=== PATIENT | female | born 1995 | race Caucasian/White ===

== ENCOUNTER 2022-01-23 17:11 | Emergency (ER) | payer OTHER ==
--- OUTSIDE RECORDS SUMMARY | 2022-01-23 17:16 | XMS REPORT | Continuity of Care Document ---
:1995 Author Organization [facility] t Address [facility] [place] [address] Care Team Providers Name Role Phone CTR, ADMIN MED Primary Care Physician Unavailable Attending Clinician Unavailable Singer GRIER Attending Clinician Logan KIMBLE Attending Clinician LOGAN Attending Clinician Unavailable Dedra Benitez Attending Clinician Doctor Unassigned, Name Attending Clinician Unavailable Kyler BIRD Attending Clinician KYLER Attending Clinician Unavailable ALO Attending Clinician Unavailable Ariel BROOKS Attending Clinician Unavailable Davy Feng APN Attending Clinician LOGAN Admitting Clinician Unavailable Ariel BROOKS Admitting Clinician Unavailable Payers Payer Name Policy Type Policy Number Effective Date Expiration Date Anisha santiago [facility] [id number] 2019 00:00:00 Advance Directives Directive Decision Effective Termination Comments Source Date Date Healthcare Agents on N/A Univ ersity FileNameRelationshipHealthcare [facility] Agent Medical RelationshipCommunicationAlison Branch ClaonSpousePrimary healthcare [phone] (Mobile) Problems Condition Condition Condition Status Onset Resolution Last Treating Co mments Source Name Details Category Date Date Treatment Clinician Date No known No known Disease Unive rs active active ity of problems problems [facility] Allergies, Adverse Reactions, Alerts Allergy Allergy Status Severity Reaction(s) Onset Inactive Treating Comm ents Source Name Type Date Date Clinician NO KNOWN Drug Active Univers ALLERGIE Class ity of S [facility] Social History Social Habit Start Date Stop Date Quantity Comments Source Exposure to Not sure [facility] SARS-CoV-2 (event) Medica l [place] Sex Assigned At [address] [facility] 00:00:00 00:00:00 Medical Branch Smoking Status Start Date Stop Date Source Unknown if ever smoked [facility] Medications Ordered Filled Start Stop Current Ordering Indication Dosage Frequency Signature Comments Components Source Medication Medication Date Date Medication? Clinician (SIG) Name Name chlorphenir 2020-10 Yes [id number] 4mg Take 1 Univers amine 4 mg 2-29 tablet by ity of tablet 00:00: mouth [place] 00 every 6 Medical (six) Branch hours as needed for Allergies or Runny nose. calcium/mag 2020-10 Yes [id number] 1{each} Take 1 Univers nesium/zinc 2-29 Each by ity o f (CALCIUM-MA 00:00: mouth [place] GNESUIUM-ZI 00 daily. Medica l NE) Branch 333-133-5 mg Tab benzonatate 2020-10 Yes [id number] 100mg Take 1 Univers 100 mg 2-29 capsule by ity of capsule 00:00: mouth 3 [place] 00 (three) Medical times Branch daily as needed for Cough. vitamin 2020-10- Yes [id number] 1{tbl} Take 1 Univers D3-folic 2-29 - tablet by ity o f acid 125 00:00: 05:59 mouth [place] mcg (5,000 00 :00 daily for Medi megan unit)-1 mg 30 days. Branc h Tab maalox:diph 2020-10- No 15mL 15 mL, Uni vers enhydrAMINE 0-16 10-16 Oral, ity of :lidocaine 18:00: 17:10 ONCE, 1 [place] as 2 % viscous 00 :00 dose, On Medi megan 1:1:1 Sat Branch (FIRST-MOUT 08/13/21 [facility]) at 1300, oral Routine suspension 15 mL acetaminoph 2020-10- No 1000mg 1,000 mg, Univers en 0-16 10-16 Oral, ity of (TYLENOL) 18:00: 17:10 ONCE, 1 [place] tablet [place] :[place] dose, On Medical 1,000 mg Sat Branch 08/13/21 at 1300, SEGUNDO activated 2020-10- No 50g 50 g, Univer s charcoal-so 008-13 Oral, ity of rbitoL 13:15: 12:42 ONCE, 1 [place] (ACTIDOSE/S 00 :00 dose, On Medi megan ORBITAL) 25 Sat Branch gram/120 mL 08/13/21 suspension at 0815, 50 g SEGUNDO ketorolac 2020- No 30mg 30 mg, Unive rs (TORADOL) 06-01 Slow IV ity of injection 02:30: 01:45 Push, [place] 30 mg 00 :00 ONCE, 1 Medical dose, Tue Branch 05/31/21 at 2130, SEGUNDO
Fa culty member approving Restricted medication : Romina SOFIA diphenhydrA 2020- No 25mg 25 mg, Uni vers MINE 06-01 Slow IV ity of (BENADRYL) 02:30: 01:46 Push, [place] injection 00 :00 ONCE, 1 Medical 25 mg dose, Tue Branch 05/31/21 at 2130, STAT metoclopram 2020- No 10mg 10 mg, Uni vers maximus HCl 06-01 Slow IV ity of (REGLAN) 02:30: 01:44 Push, [place] injection 00 :00 ONCE, 1 Medical 10 mg dose, Tue Branch 05/31/21 at 2130, SEGUNDO NaCl 0.9% 2020- No 1000mL at 999 Uni vers (NS) bolus 06-01 mL/hr, ity of infusion 02:30: 03:25 1,000 mL, Kevin as 1,000 mL 00 :00 IV Medical Infusion, Branch ONCE, 1 dose, 05/31/21 at 2130, STAT ibuprofen Yes [id number] 600mg Take 1 Univers 600 mg 8-03 tablet by ity of tablet 00:00: mouth 00 every 6 Medical (six) Branch hours as needed for Pain (scale 4-6). benzonatate Yes [id number] 100mg Take 1 Univers 100 mg 8-03 capsule by ity of capsule 00:00: mouth 3 [place] 00 (three) Medical times Branch daily as needed for Cough. ondansetron 2020-0 Yes [id number] 4mg Take 1 Univers (ZOFRAN 8-03 tablet by ity of ODT) 4 mg 00:00: mouth [place] disintegrat 00 every 8 Medic al ing tablet (eight) Branch hours as needed for Nausea and Vomiting (N/V). ibuprofen 2020-0 Yes [id number] 600mg Take 1 Univers 600 mg 8-03 tablet by ity of tablet 00:00: mouth [place] 00 every 6 Medical (six) Branch hours as needed for Pain (scale 4-6). benzonatate 2020-0 Yes [id number] 100mg Take 1 Univers 100 mg 8-03 capsule by ity of capsule 00:00: mouth 3 [place] 00 (three) Medical times Branch daily as needed for Cough. ondansetron 2020-0 Yes [id number] 4mg Take 1 Univers (ZOFRAN 8-03 tablet by ity of ODT) 4 mg 00:00: mouth [place] disintegrat 00 every 8 Medic al ing tablet (eight) Branch hours as needed for Nausea and Vomiting (N/V). ibuprofen 2020-0 Yes [id number] 600mg Take 1 Univers 600 mg 8-03 tablet by ity of tablet 00:00: mouth [place] 00 every 6 Medical (six) Branch hours as needed for Pain (scale 4-6). ondansetron 2020-0 Yes [id number] 4mg Take 1 Univers (ZOFRAN 8-03 tablet by ity of ODT) 4 mg 00:00: mouth [place] disintegrat 00 every 8 Medic al ing tablet (eight) Branch hours as needed for Nausea and Vomiting (N/V). benzonatate 2020-0 2021- No [id number] 100mg Take 1 Univers 100 mg 8-03 12-29 capsule by ity of capsule 00:00: 00:00 mouth 3 [place] 00 :00 (three) Medical times Branch daily as needed for Cough. methocarbam 2020-0 Yes [id number] 500mg Take 1 Univers oL 500 mg 6-15 tablet by ity o f tablet 00:00: mouth 4 [place] 00 (four) Medical times Branch daily. ibuprofen 2020-0 Yes [id number] 600mg Take 1 U nivers 600 mg 6-15 tablet by ity of tablet 00:00: mouth [place] 00 every 6 Medical (six) Branch hours as needed for Pain (scale 4-6). methocarbam Yes [id number] 500mg Take 1 Univers oL 500 mg 6-15 tablet by ity o f tablet 00:00: mouth 4 [place] 00 (four) Medical times Branch daily. methocarbam Yes [id number] 500mg Take 1 Univers oL 500 mg 6-15 tablet by ity o f tablet 00:00: mouth 4 [place] 00 (four) Medical times Branch daily. methocarbam Yes [id number] 500mg Take 1 Univers oL 500 mg 6-15 tablet by ity o f tablet 00:00: mouth 4 [place] 00 (four) Medical times Branch daily. ibuprofen 2020- No [id number] 600mg Take 1 Univers 600 mg 6-15 08-03 tablet by ity of tablet 00:00: 00:00 mouth [place] 00 :00 every 6 Medical (six) Branch hours as needed for Pain (scale 4-6). ondansetron 2019-10 Yes [id number] 4mg Take 1 Univers 4 mg 0-24 tablet by ity of disintegrat 00:00: mouth [place] ing tablet 00 every 8 Medica l (eight) Branch hours as needed for Nausea and Vomiting (N/V). acetaminoph 2019-10 Yes [id number] 1{tbl} Take 1 Un mercy en-codeine 0-24 tablet by ity of 300-30 mg 00:00: mouth [place] tablet 00 every 4 Medical (four) Branch hours as needed for Pain (scale 7-10). Indication s: acute pain ondansetron 2019-10 Yes [id number] 4mg Take 1 Univers 4 mg 0-24 tablet by ity of disintegrat 00:00: mouth [place] ing tablet 00 every 8 Medica l (eight) Branch hours as needed for Nausea and Vomiting (N/V). acetaminoph 2019-10 Yes [id number] 1{tbl} Take 1 Un mercy en-codeine 0-24 tablet by ity of 300-30 mg 00:00: mouth [place] tablet 00 every 4 Medical (four) Branch hours as needed for Pain (scale 7-10). Indication s: acute pain ondansetron 2019-10 Yes [id number] 4mg Take 1 Univers 4 mg 0-24 tablet by ity of disintegrat 00:00: mouth [place] ing tablet 00 every 8 Medica l (eight) Branch hours as needed for Nausea and Vomiting (N/V). acetaminoph 2019- Yes [id number] 1{tbl} Take 1 Un mercy en-codeine 0-24 tablet by ity of 300-30 mg 00:00: mouth [place] tablet 00 every 4 Medical (four) Branch hours as needed for Pain (scale 7-10). Indication s: acute pain acetaminoph 2019- Yes [id number] 1{tbl} Take 1 Un mercy en-codeine 0-24 tablet by ity of 300-30 mg 00:00: mouth [place] tablet 00 every 4 Medical (four) Branch hours as needed for Pain (scale 7-10). Indication s: acute pain acetaminoph 2019- Yes [id number] 1{tbl} Take 1 Un mercy en-codeine 0-24 tablet by ity of 300-30 mg 00:00: mouth [place] tablet 00 every 4 Medical (four) Branch hours as needed for Pain (scale 7-10). Indication s: acute pain acetaminoph 2019-10 Yes [id number] 1{tbl} Take 1 Un mercy en-codeine 0-24 tablet by ity of 300-30 mg 00:00: mouth [place] tablet 00 every 4 Medical (four) Branch hours as needed for Pain (scale 7-10). Indication s: acute pain ondansetron 2019-10 Yes [id number] 4mg Take 1 Univers 4 mg 0-24 tablet by ity of disintegrat 00:00: mouth [place] ing tablet 00 every 8 Medica l (eight) Branch hours as needed for Nausea and Vomiting (N/V). acetaminoph 2019-10 Yes [id number] 1{tbl} Take 1 Un mercy en-codeine 0-24 tablet by ity of 300-30 mg 00:00: mouth [place] tablet 00 every 4 Medical (four) Branch hours as needed for Pain (scale 7-10). Indication s: acute pain ondansetron 2019- Yes [id number] 4mg Take 1 Univers 4 mg 0-24 tablet by ity of disintegrat 00:00: mouth [place] ing tablet 00 every 8 Medica l (eight) Branch hours as needed for Nausea and Vomiting (N/V). acetaminoph 2019-10 Yes [id number] 1{tbl} Take 1 Un mercy en-codeine 0-24 tablet by ity of 300-30 mg 00:00: mouth [place] tablet 00 every 4 Medical (four) Branch hours as needed for Pain (scale 7-10). Indication s: acute pain ondansetron 2019-10- No [id number] 4mg Take 1 Univers 4 mg 0-24 08-03 tablet by ity of disintegrat 00:00: 00:00 [place] tablet 00 :00 every 8 Medica l (eight) Branch hours as needed for Nausea and Vomiting (N/V). clindamycin 2019-10- No [id number] 300mg Take 2 Univers 150 mg 0-24 11- capsules ity of capsule 00:00: 04:59 by mouth 4 [place] 00 :00 (four) Medical times Branch daily for 7 days. cyclobenzap 2019- Yes [id number] 10mg Take 1 Univers rine 10 mg 1-08 tablet by ity of tablet 00:00: mouth 3 00 (three) Medical times Branch daily as needed for Muscle Spasms. cyclobenzap 2019-0 Yes [id number] 10mg Take 1 Univers rine 10 mg 1-08 tablet by ity of tablet 00:00: mouth 3 00 (three) Medical times Branch daily as needed for Muscle Spasms. cyclobenzap 2020-0 Yes [id number] 10mg Take 1 Univers rine 10 mg 1-08 tablet by ity of tablet 00:00: mouth 3 [place] 00 (three) Medical times Branch daily as needed for Muscle Spasms. cyclobenzap 2020-0 Yes [id number] 10mg Take 1 Univers rine 10 mg 1-08 tablet by ity of tablet 00:00: mouth 3 [place] 00 (three) Medical times Branch daily as needed for Muscle Spasms. cyclobenzap 2020-0 Yes [id number] 10mg Take 1 Univers rine 10 mg 1-08 tablet by ity of tablet 00:00: mouth 3 00 (three) Medical times Branch daily as needed for Muscle Spasms. cyclobenzap 2020-0 Yes [id number] 10mg Take 1 Univers rine 10 mg 1-08 tablet by ity of tablet 00:00: mouth 3 00 (three) Medical times Branch daily as needed for Muscle Spasms. cyclobenzap 2020-0 Yes [id number] 10mg Take 1 Univers rine 10 mg 1-08 tablet by ity of tablet 00:00: mouth 3 [place] 00 (three) Medical times Branch daily as needed for Muscle Spasms. cyclobenzap 0 Yes [id number] 10mg Take 1 Univers rine 10 mg 1-08 tablet by ity of tablet 00:00: mouth 3 [place] 00 (three) Medical times Branch daily as needed for Muscle Spasms. gabapentin 2018-10 Yes 1200mg Take 1,200 Univers 400 mg 1-25 mg by ity of capsule 23:43: mouth [place] 04 daily. Medical Branch diclofenac 2018-10 Yes 75mg Take 75 mg U nivers 50 mg 1-25 by mouth ity of tablet 23:43: daily. Medical Branch gabapentin 2018-10 Yes 1200mg Take 1,200 Univers 400 mg 1-25 mg by ity of capsule 23:43: mouth [place] 04 daily. Medical Branch diclofenac 2018-10 Yes 75mg Take 75 mg U nivers 50 mg 1-25 by mouth ity of tablet 23:43: daily. Medical Branch gabapentin 2018-10 Yes 1200mg Take 1,200 Univers 400 mg 1-25 mg by ity of capsule 23:43: mouth [place] 04 daily. Medical Branch diclofenac 2018-10 Yes 75mg Take 75 mg U nivers 50 mg 1-25 by mouth ity of tablet 23:43: daily. Medical Branch gabapentin 2018-10 Yes 1200mg Take 1,200 Univers 400 mg 1-25 mg by ity of capsule 23:43: mouth [place] 04 daily. Medical Branch diclofenac 2018-10 Yes 75mg Take 75 mg U nivers 50 mg 1-25 by mouth ity of tablet 23:43: daily. Medical Branch gabapentin 2018-10 Yes 1200mg Take 1,200 Univers 400 mg 1-25 mg by ity of capsule 23:43: mouth [place] 04 daily. Medical Branch diclofenac 2018-10 Yes 75mg Take 75 mg U nivers 50 mg 1-25 by mouth ity of tablet 23:43: daily. Medical Branch gabapentin 2018-10 Yes 1200mg Take 1,200 Univers 400 mg 1-25 mg by ity of capsule 23:43: mouth [place] 04 daily. Medical Branch diclofenac 2018-10 Yes 75mg Take 75 mg U nivers 50 mg 1-25 by mouth ity of tablet 23:43: daily. Medical Branch gabapentin 2018-10 Yes 1200mg Take 1,200 Univers 400 mg 1-25 mg by ity of capsule 17:43: mouth [place] 04 daily. Medical Branch diclofenac 2018-10 Yes 75mg Take 75 mg U nivers 50 mg 1-25 by mouth ity of tablet 17:43: daily. Medical Branch gabapentin 2018-10 Yes 1200mg Take 1,200 Univers 400 mg 1-25 mg by ity of capsule 17:43: mouth [place] 04 daily. Medical Branch diclofenac 2018-10 Yes 75mg Take 75 mg U nivers 50 mg 1-25 by mouth ity of tablet 17:43: daily. Medical Branch ibuprofen 2018-10 Yes [id number] 600mg Take 1 Univers 600 mg 1-25 tablet by ity of tablet 00:00: mouth [place] 00 every 6 Medical (six) Branch hours as needed for Pain (scale 4-6). cyclobenzap 2018-10 Yes [id number] 10mg Take 1 Univers rine 10 mg 1-25 tablet by ity of tablet 00:00: mouth 3 [place] 00 (three) Medical times Branch daily. ibuprofen 2018-10 Yes [id number] 600mg Take 1 Univers 600 mg 1-25 tablet by ity of tablet 00:00: mouth [place] 00 every 6 Medical (six) Branch hours as needed for Pain (scale 4-6). cyclobenzap 2018-10 Yes [id number] 10mg Take 1 Univers rine 10 mg 1-25 tablet by ity of tablet 00:00: mouth 3 [place] 00 (three) Medical times Branch daily. ibuprofen 2018-10 Yes [id number] 600mg Take 1 Univers 600 mg 1-25 tablet by ity of tablet 00:00: mouth [place] 00 every 6 Medical (six) Branch hours as needed for Pain (scale 4-6). cyclobenzap 2018-10 Yes [id number] 10mg Take 1 Univers rine 10 mg 1-25 tablet by ity of tablet 00:00: mouth 3 [place] 00 (three) Medical times Branch daily. cyclobenzap 2018-10 Yes [id number] 10mg Take 1 Univers rine 10 mg 1-25 tablet by ity of tablet 00:00: mouth 3 [place] 00 (three) Medical times Branch daily. cyclobenzap 2018-10 Yes [id number] 10mg Take 1 Univers rine 10 mg 1-25 tablet by ity of tablet 00:00: mouth 3 [place] 00 (three) Medical times Branch daily. cyclobenzap 2018-10 Yes [id number] 10mg Take 1 Univers rine 10 mg 1-25 tablet by ity of tablet 00:00: mouth (three) Medical times Branch daily. ibuprofen 2018-10 Yes [id number] 600mg Take 1 Univers 600 mg 1-25 tablet by ity of tablet 00:00: mouth [place] 00 every 6 Medical (six) Branch hours as needed for Pain (scale 4-6). cyclobenzap 2018-10 Yes [id number] 10mg Take 1 Univers rine 10 mg 1-25 tablet by ity of tablet 00:00: mouth 3 (three) Medical times Branch daily. ibuprofen 2018-10 Yes [id number] 600mg Take 1 Univers 600 mg 1-25 tablet by ity of tablet 00:00: mouth 00 every 6 Medical (six) Branch hours as needed for Pain (scale 4-6). cyclobenzap 2018-10 Yes [id number] 10mg Take 1 Univers rine 10 mg 1-25 tablet by ity of tablet 00:00: mouth (three) Medical times Branch daily. ibuprofen 2018-10- No [id number] 600mg Take 1 Univers 600 mg 1-25 08-03 tablet by ity of tablet 00:00: 00:00 mouth [place] 00 :00 every 6 Medical (six) Branch hours as needed for Pain (scale 4-6). ibuprofen Yes [id number] 600mg Take 1 Univers 600 mg 7-28 105 tablet by ity of tablet 00:00: mouth 00 every 6 Medical (six) Branch hours as needed for Pain (scale 1-3). cyclobenzap Yes [id number] 5mg Take 1 Univers rine 5 mg 2-01 tablet by ity o f tablet 00:00: mouth (three) Medical times Branch daily. traMADOL 2018- Yes [id number] 50mg Take 1 Uni vers (ULTRAM) 50 2-01 tablet by ity of mg tablet 00:00: mouth [place] 00 every 6 Medical (six) Branch hours as needed for Pain (scale 4-6). cyclobenzap Yes [id number] 5mg Take 1 Univers rine 5 mg 2-01 tablet by ity o f tablet 00:00: mouth 3 [place] 00 (three) Medical times Branch daily. traMADOL 2019-0 Yes [id number] 50mg Take 1 Uni vers (ULTRAM) 50 2-01 tablet by ity of mg tablet 00:00: mouth 00 every 6 Medical (six) Branch hours as needed for Pain (scale 4-6). Vital Signs Vital Name Observation Time Observation Value Comments Source Systolic blood 2021-10-26 15:26:00 142 mm[Hg] Univer sity of pressure [facility] Diastolic blood 2021-10-26 15:26:00 74 mm[Hg] Unive rsity of [facility] Heart rate 2021-10-26 15:26:00 87 /min [facility] Body temperature 2021-10-26 15:26:00 37.17 Olivia [facility] Res[facility] 2021-10-26 15:26:00 16 /min [facility] Body height 2021-10-26 15:26:00 167.6 cm [facility] Body weight 2021-10-26 15:26:00 108.863 kg [facility] BMI 2021-10-26 15:26:00 38.74 kg/m2 [facility] Oxygen saturation in 2021-10-26 15:26:00 100 /min University of Arterial blood by [facility] Pulse oximetry Branch Systolic blood 2021-08-13 18:00:00 117 mm[Hg] Univer sity of [facility] Diastolic blood 2021-08-13 18:00:00 77 mm[Hg] Unive rsity [facility] Heart rate 2021-08-13 18:00:00 97 /min Universi ty [facility] Respiratory rate 2021-08-13 18:00:00 17 /min [facility] Oxygen saturation in 2021-08-13 18:00:00 98 /min University of Arterial blood by [facility] Pulse oximetry [place] Body temperature 2021-08-13 13:00:00 36.72 Olivia [facility] Systolic blood 2021-06-01 03:25:00 138 mm[Hg] Univer sity of [facility] Diastolic blood 2021-06-01 03:25:00 82 mm[Hg] Unive rsity of [facility] [place] Medical Branch Heart rate 2021-06-01 03:25:00 82 /min Universi ty of [place] [facility] Respiratory rate 2021-06-01 03:25:00 16 /min Univ ersity of [place] [facility] Oxygen saturation in 2021-06-01 03:25:00 99 /min University of Arterial blood by [facility] megan Pulse oximetry Branch Body temperature 2021-05-31 23:06:00 37.11 Olivia Univ ersity of [place] [facility] Body height 2021-05-31 23:06:00 167.6 cm Universi ty of [place] [facility] Body weight 2021-05-31 23:06:00 102.059 kg Universi ty of [place] [facility] BMI 2021-05-31 23:06:00 36.32 kg/m2 Universi ty of [place] [facility] Systolic blood 2021-04-12 16:40:08 126 mm[Hg] Univer sity of pressure [place] [facility] Diastolic blood 2021-04-12 16:40:08 78 mm[Hg] Unive rsity of pressure [place] [facility] Heart rate 2021-04-12 16:40:08 68 /min Universi ty of [place] [facility] Respiratory rate 2021-04-12 16:40:08 16 /min Univ ersity of [place] [facility] Oxygen saturation in 2021-04-12 16:40:08 100 /min University of Arterial blood by [facility] Pulse oximetry Branch Body temperature 2021-04-12 14:08:00 36.78 Olivia Univ ersity of [place] [facility] Body weight 2021-04-12 14:08:00 99.791 kg Universi ty of [place] [facility] BMI 2021-04-12 14:08:00 35.51 kg/m2 Universi ty of [place] [facility] Respiratory rate 2020-09-03 15:45:00 18 /min Univ ersity of [place] [facility] Body height 2020-09-03 15:45:00 167.6 cm Universi ty of [place] [facility] Body weight 2020-09-03 15:45:00 88.451 kg Universi ty of [place] [facility] BMI 2020-09-03 15:45:00 31.47 kg/m2 Universi ty of [place] [facility] Oxygen saturation in 2020-09-03 15:45:00 100 /min University of Arterial blood by [place] Medi megan Pulse oximetry Branch Systolic blood 2020-09-03 15:45:00 133 mm[Hg] Univer sity of pressure [place] [facility] Diastolic blood 2020-09-03 15:45:00 84 mm[Hg] Unive rsity of pressure [place] [facility] Heart rate 2020-09-03 15:45:00 72 /min Universi ty of [place] [facility] Body temperature 2020-09-03 15:45:00 36.83 Olivia Univ ersity of [place] [facility] Systolic blood 2020-08-21 08:00:00 137 mm[Hg] Univer sity of pressure [place] [facility] Diastolic blood 2020-08-21 08:00:00 78 mm[Hg] Unive rsity of pressure [place] [facility] Heart rate 2020-08-21 08:00:00 121 /min Universi ty of [facility] Oxygen saturation in 2020-08-21 08:00:00 99 /min University of Arterial blood by [facility] Pulse oximetry Branch Body temperature 2020-08-21 07:25:00 37.22 Olivia Univ ersity of [place] [facility] Respiratory rate 2020-08-21 07:25:00 16 /min Univ ersity of [place] [facility] Body height 2020-08-21 07:25:00 165.1 cm Universi ty of [place] [facility] Body weight 2020-08-21 07:25:00 86.183 kg Universi ty of [place] [facility] BMI 2020-08-21 07:25:00 31.62 kg/m2 Universi ty of [facility] Branch Systolic blood 2019-05-25 15:59:00 137 mm[Hg] Univer sity of pressure [place] [facility] Diastolic blood 2019-05-25 15:59:00 83 mm[Hg] Unive rsity of pressure [place] [facility] Heart rate 2019-05-25 15:59:00 85 /min Universi ty of [place] [facility] Body temperature 2019-05-25 15:59:00 36.89 Olivia Univ ersity of [place] [facility] Respiratory rate 2019-05-25 15:59:00 18 /min Univ ersity of [place] [facility] Body height 2019-05-25 15:59:00 165.1 cm Universi ty of [place] [facility] Body weight 2019-05-25 15:59:00 81.647 kg Universi ty of [place] [facility] BMI 2019-05-25 15:59:00 29.95 kg/m2 Universi ty of [place] [facility] Oxygen saturation in 2019-05-25 15:59:00 97 /min University Arterial blood by [facility] Pulse oximetry Branch Procedures Procedure Date / Time Performing Clinician Source Performed RAPID INFLUENZA A/B 2021-10-26 15:36:00 Derek Ortizip [facility] CONSENT/REFUSAL FOR 2021-10-26 15:21:30 Doctor Unassigned, No Un [facility] DIAGNOSIS AND TREATMENT Name [facility] URINE DRUG (IMMUNOASSAY) 2021-08-13 18:13:00 Divya Ford [facility] DRUG [facility] SCREEN POCT TEST 2021-08-13 12:50:00 Divya Ford [facility] URINALYSIS 2021-08-13 12:29:00 Divya Ford [facility] CREATINE KINASE 2021-08-13 12:28:00 Logan Divya [facility] FREE T4 2021-08-13 12:28[facility] 2021-08-13 12:28:00 Divya Ford [facility] HORMONE [facility] COMP. METABOLIC PANEL 2021-08-13 12:28:00 Divya Ford [facility] ([id number]) [facility] SALICYLATE 2021-08-13 12:28:00 Logan Divya [facility] ETHANOL 2021-08-13 12:28:00 Divya Ford [facility] CBC WITH DIFF 2021-08-13 12:28:00 Divya Ford [facility] COVID-19 (ID NOW RAPID 2021-08-13 12:28:00 Divya Ford [facility] TESTING) [facility] LIPASE 2021-06-01 01:42:00 Romina Sofia [facility] COMP. METABOLIC PANEL 2021-06-01 01:42:00 Romina Sofia [facility] ([id number]) [facility] CBC WITH DIFF 2021-06-01 01:42:00 Romina Sofia [facility] URINALYSIS 2021-06-01 01:36:00 [place], K [facility] XR CHEST 1 VW 2021-06-01 01:33:54 Romina Sofia [facility] POCT TEST 2021-06-01 01:30:00 Romina Sofia Dedra [facility] NOTICE OF PRIVACY 2021-05-31 22:47:35 Doctor Unassigned, No [facility] System [facility] CONSENT/REFUSAL FOR 2021-05-31 22:47:19 Doctor Unassigned, No [facility] Name [facility] D-DIMER 2021-04-12 15:45:00 Divya [facility] XR CHEST 1 VW 2021-04-12 15:26:56 Divya [facility] POCT TEST 2021-04-12 15:01:00 Divya Ford [facility] CREATINE KINASE 2021-04-12 14:47:00 Divya [facility] TROPONIN I 2021-04-12 14:47:00 Divya [facility] HEPATIC FUNCTION PANEL 2021-04-12 14:47:00 Divya Ford [facility] ([id number]) (ALB,T.PRO,[facility] T,BU/BC,ALT,AST,ALK PHOS) BASIC METABOLIC PANEL 2021-04-12 14:47:00 Divya Ford [facility] (NA, K, CL, CO2, Medical Branch GLUCOSE, BUN, CREATININE, CA) URINE DRUG (IMMUNOASSAY) 2021-04-12 14:47:00 Divya Ford [facility] DRUG Medical [facility] SCREEN CBC WITH DIFF 2021-04-12 14:47:00 Divya [facility] URINALYSIS 2021-04-12 14:47:00 Divya [facility] N-TERMINAL PRO-BNP 2021-04-12 14:47:00 Divya Ford [facility] NOTICE OF PRIVACY 2021-04-12 13:55:32 Doctor Unassigned, No [facility] CONSENT/REFUSAL FOR 2021-04-12 13:55:12 Doctor Unassigned, No [facility] [place] [facility]AT[facility] Name Medical Branch AUTHORIZATION FOR 2020-09-19 06:01:00 Doctor Unassigned, No [facility] RE[facility] OF PHI Name Medical Branch CONSENT/REFUSAL FOR 2020-09-03 15:31:20 Doctor Unassigned, No [facility] [place] DI[facility] TREATMENT Name Medical Branch HI RECMPL WND 2020-08-21 08:47:00 Cristiana Ortiz [facility] [place] HEAD,FAC,HAND 2.6-7.5 CM Medical Branch COVID-19 (ID NOW RAPID 2020-08-21 07:57:00 Cristiana Ortiz [facility] TESTING) Medical Branch XR HAND <3 VW LEFT 2020-08-21 07:43:53 [facility] XR ANKLE 3+ VW RIGHT 2019-05-25 16:25:16 Nish Feng [facility] [place] CONSENT/REFUSAL FOR 2019-05-25 15:51:51 Doctor Unassigned, No [facility] [place] DIAGNOSIS AND TREATMENT Name Medical Branch Encounters Start End Encounter Admission Attending Care Care Encounter Source Date/Time Date/Time Type Type Clinicians Facility Department ID 2021-10-26 2021-10-26 Emergency X SINGER [facility] ERT [id number] Univers 09:32:00 10:05:00 CRISTIANA cuevas [facility] 2021-10-26 2021-10-26 Emergency Singer [facility] [id number] Univers 09:32:00 10:05:00 Cristiana CAPPS [id number] i ty of [place] 4.2.7.2.686 [facility] [id number] [address] 2021-08-13 2021-08-13 Emergency Logan [facility] [id number] Univers 07:07:00 14:59:00 Divya Capps [id number] [place] [address] [place] [id number] 2021-08-13 2021-08-13 Emergency X LOGAN [facility] ERT [id number] Univers 07:07:00 07:07:00 DIVYA cuevas [facility] 2021-05-31 2021-05-31 Emergency Romina Sofia [facility] [id number] Univers 18:06:00 22:40:00 Dedra Baudilio [id number] [place] 4.2.7.2.686 [facility] [id number] [address] 2021-05-31 2021-05-31 Emergency X [facility] ERT [id number] Univers 17:47:00 17:47:00 ity [facility] 2021-04-12 2021-04-12 [facility] [id number] Univers 09:12:00 11:44:00 Divya Zamoranoton 350.1.13.10 [place] 4.2.7.2.686 [facility] [id number] [address] 2021-04-12 2021-04-12 Emergency X LOAGN [facility] ERT [id number] Univers 09:12:00 11:44:00 DIVYA iteverardo [facility] 2021-04-12 2021-04-12 Orders Doctor DANIEL [id number] Univers 00:00:00 00:00:00 Only Unassigned, JEAN-PIERRE 350.1.13.10 ity of [place] [facility] 4.2.7.2.686 Kevin as [id number] [address] 2020-09-19 2020-09-19 Orders Doctor SANCHEZ [id number] Univers 00:00:00 00:00:00 Only Unassigned, JEAN-PIERRE 350.1.13.10 ity of [place] [facility] 4.2.7.2.686 Kevin as [id number] [address] 2020-09-03 2020-09-03 [facility] [id number] Univers 09:46:00 10:17:00 Dhruv Baudilio 350.1.13.10 [place] 4.2.7.2.686 [facility] [id number] [address] 2020-09-03 2020-09-03 [facility] [id number] Univers 09:46:00 09:46:00 DHRUV cuevas [facility] 2020-08-21 2020-08-21 Emergency [facility] [id number] Univers 02:22:00 04:07:00 Cristiana Capps 350.1.13.10 [place] 4.2.7.2.686 [facility] [id number] [address] 2020-08-21 2020-08-21 Emergency [facility] [id number] Univers 02:22:00 02:22:00 CRISTIANA cuevas [facility] 2019-11-08 2019-11-08 [facility] [id number] [place] 00:00:00 00:00:00 DANIEL [address] 2019-11-05 2019-11-05 Emergency [facility] [id number] Univers 15:02:10 17:41:00 RAQUEL [facility] 2019-05-25 2019-05-25 [facility] [id number] Univers 11:00:44 13:32:00 Nish Capps 350.1.13.10 ity [facility] 4.2.7.[address] [place] [id number] 2019-05-25 2019-05-25 Orders Doctor DANIEL [id number] Univers 00:00:00 00:00:00 Only Unassigned, JEAN-PIERRE 350.1.13.10 ity of [place] [facility] 4.2.7.[address] [place] [phone] Results Test Description Test Time Test Comments Results Result Comments Source FREE T4 2021-08-13 13:58:34 Test Item Value Reference Range Interpretation Comme nts FREE T4 (test code = See_Comment [Autom ated message] The system [id number]) which generated this result transmitted ref erence range: 0.78 - 2.20 ng/dL:. The reference range was not u sed to interpret this result as normal/abnormal. Lab Interpretation (test code = Normal 14900-1) [facility] System[facility] STIMULATING [id number] 13:52:25 Test Item Value Reference Range Interpretation Comments TSH (test code = See_Comment [Automated message] 3325142862) The system Pulse [employer] generated this result transmitted ref erence range: 0.45 - 4 .70 mIU/L. The refe rence range was not u sed to interpret this result as normal/abnor mal. Lab Interpretation (test Normal code = 70647-3) [facility] SystemACETAMINOPHEN2021-10-16 13:22:51 Test Item Value Reference Range Interpretation Comments ACETAMINOP (test code = <10.0 10.0-30.0 L 7867222914) SWEETIE (test code = SWEETIE) Toxic: Greater than 200 ug/mL @ 4 hour post ingestion or greater than 50 ug/mL @ 12 hour post ingestion Lab Interpretation (test Abnormal code = 17565-7) [facility] SystemETHANOL2021-10-16 13:22:45 Test Item Value Reference Range Interpretation Comments ALCOHOL (test code = 124 mg/dL 1053884969) SWEETIE (test code = SWEETIE) <10 Qniidooz14-742 Toxic>100 Depression of BOX FINISHER>400 Fatalities Reported [facility] SystemSALICYLATE2021-10-16 13:22:45 Test Item Value Reference Range Interpretation Comments SALICYLATE (test code <10 mg/L = 0520223560) SWEETIE (test code = SWEETIE) Therapeutic Range: ? Analgesic and Antipyretic Use ? 20-100 mg/L ? ? Anti-Inflammatory Use ? 100-250 mg/L Toxic Range: ? Greater than 300 mg/L [facility] SystemCOMP. METABOLIC PANEL ([id number])2021-08-13 13:22:05 Test Item Value Reference Range Interpretation Comments NA (test code = 141 mmol/L 135-145 4113686907) K (test code = 4.0 mmol/L 3.5-5.0 8814357671) CL (test code = 107 mmol/L 98-108 1098072659) CO2 TOTAL (test code = 22 mmol/L 23-31 L 8240577573) AGAP (test code = 2-16 8027721268) BUN (test code = 9 mg/dL 7-23 1329205875) GLUCOSE (test code = 103 mg/dL 70-110 5955639656) CREATININE (test code = 0.83 mg/dL 0.50-1.04 7446054016) TOTAL BILI (test code = 0.7 mg/dL 0.1-1.7 2703872094) CALCIUM (test code = 10.0 mg/dL 8.6-10.6 6707113008) T PROTEIN (test code = 8.0 g/dL 6.3-8.2 6650377265) ALBUMIN (test code = 4.9 g/dL 3.5-5.0 9881856776) ALK PHOS (test code = 90 U/L 34-122 9144646605) ALTv (test code = 35 U/L 5-35 1741-6) AST(SGOT) (test code = 30 U/L 13-40 2978561822) eGFR (test code = mL/min/1.73m2 0619016250) SWEETIE (test code = SWEETIE) Association of Glomerular Filtration Rate (GFR) and Staging of Kidney Disease* + --+ --+ ------+| GFR (mL/min/1.73 m2) ?| With Kidney Damage ?| ?Without Kidney Damage+ --------+ --------+ +| ?>90 ?| ?Stage one ?| ? Normal ?+ ---+ ---+ -------+| ?60-89 ?| ?Stage two ?| ? Decreased GFR ? + --+ --+ ------+| ?30-59 ?| ?Stage three ?| ? Stage three ? + --+ --+ ------+| ?15-29 ?| ?Stage four ? | ? Stage four ?+ ---+ ---+ -------+| ?<15 (or dialysis) ? ?| ?Stage five ? | ? Stage five ?+ ---+ ---+ -------+ *Each stage assumes the associated GFR level has been in effect for at least three months. ?Stages 1 to 5, with or without kidney disease, indicate chronic kidney disease. Notes: Determination of stages one and two (with eGFR >59mL/min/1.73 m2) requires estimation of kidney damage for at least three months as defined by structural or functional abnormalities of the kidney, manifested by either:Pathological abnormalities or Markers of kidney damage (including abnormalities in the composition of the blood or urine or abnormalities in imaging tests). Lab Interpretation Abnormal (test code = 24673-9) [facility] SystemCREATINE [id number] 13:21:45 Test Item Value Reference Range Interpretation Comments CK (test code = 1820910701) 83 U/L 33-194 Lab Interpretation (test code = Normal 26473-6) [facility] SystemCBC WITH [id number] 13:02:41 Test Item Value Reference Range Interpretation Comments WBC (test code = See_Comment [Automated 8890-2) message] The sy stem which generated this result transmitted reference range : 4.30 - 11.10 10*3/?L. The reference range was not used to interpret this result as normal/abnormal . RBC (test code = See_Comment [Automated 789-8) message] The sy stem which generated this result transmitted reference range : 3.93 - 5.25 10*6/?L. The reference range was not used to interpret this result as normal/abnormal . HGB (test code = 13.6 g/dL 11.6-15.0 718-7) HCT (test code = 39.9 % 35.7-45.2 4544-3) MCV (test code = 88.3 fL 80.6-95.5 787-2) MCH (test code = 30.1 pg 25.9-32.8 785-6) MCHC (test code = 34.1 g/dL 31.6-35.1 786-4) RDW-SD (test code = 40.2 fL 39.0-49.9 31838-4) RDW-CV (test code = 12.4 % 12.0-15.5 788-0) PLT (test code = See_Comment [Automated 777-3) message] The sy stem which generated this result transmitted reference range : 166 - 358 10*3/ ?L. The reference r chela was not used to interpret this result as normal/abnormal . MPV (test code = 10.5 fL 9.5-12.9 75816-0) NRBC/100 WBC (test See_Comment [Automat ed code = 7162042289) message] The system which generated this result transmitted reference range : 0.0 - 10.0 /100 WBCs. The refer ence range was not u sed to interpret th is result as normal/abnormal . NRBC x10^3 (test code <0.01 See_Comment [Auto mated = 1499163198) message] The s ystem which generated this result transmitted reference range : 10*3/?L. The reference range was not used to interpret this result as normal/abnormal . GRAN MAT (NEUT) % 76.9 % (test code = 770-8) IMM GRAN % (test code 0.40 % = 3410687968) LYMPH % (test code = 15.6 % 736-9) MONO % (test code = 6.5 % 5905-5) EOS % (test code = 0.3 % 713-8) BASO % (test code = 0.3 % 706-2) GRAN MAT x10^3(ANC) 5.77 10*3/uL 1.88-7.09 (test code = 1057317292) IMM GRAN x10^3 (test 0.03 10*3/uL 0.00-0.06 code = 9583471044) LYMPH x10^3 (test code 1.17 10*3/uL 1.32-3.29 L = 731-0) MONO x10^3 (test code 0.49 10*3/uL 0.33-0.92 = 742-7) EOS x10^3 (test code = <0.03 0.03-0.39 L 711-2) BASO x10^3 (test code <0.03 0.01-0.07 = 704-7) Lab Interpretation Abnormal (test code = 69382-9) [facility] SystemPO[facility] [id number] 12:50:00 Test Item Value Reference Range Interpretation Comments POCT PREG (test code = 1605) negative On board controls acceptable with negative C Line (test code = 3574) POCT PREG LOT # (test code = 3575) [id number] POCT PREG TEST DATE (test code = 3576) Lab Interpretation (test code = Normal 51452-0) [facility]. METABOLIC PANEL (63034)2021-06-01 02:03:14 Test Item Value Reference Range Interpretation Comments NA (test code = 137 mmol/L 135-145 7352821507) K (test code = 4.0 mmol/L 3.5-5.0 2240281363) CL (test code = 102 mmol/L 98-108 5084939713) CO2 TOTAL (test code 26 mmol/L 23-31 = 2909650923) AGAP (test code = 2-16 3967545141) BUN (test code = 16 mg/dL 7-23 0236340847) GLUCOSE (test code = 98 mg/dL 70-110 8351314269) CREATININE (test code 0.82 mg/dL 0.50-1.04 = 0418046623) TOTAL BILI (test code 0.4 mg/dL 0.1-1.1 = 8210188957) CALCIUM (test code = 9.8 mg/dL 8.6-10.6 1937086812) T PROTEIN (test code 8.0 g/dL 6.3-8.2 = 1033180197) ALBUMIN (test code = 4.6 g/dL 3.5-5.0 7531679104) ALK PHOS (test code = 80 U/L 34-122 7237814033) ALTv (test code = 18 U/L 5-35 1742-6) AST(SGOT) (test code 21 U/L 13-40 = 6511483823) eGFR (test code = mL/min/1.73m2 9163944090) SWEETIE (test code = SWEETIE) Association of Glomerular Filtration Rate (GFR) and Staging of Kidney Disease* + + +- +| GFR (mL/min/1.73 m2) ?| With Kidney Damage ?| ?Without Kidney Damage+ ------+ ----+ ------+| ?>90 ?| ?Stage one ?| ? Normal ?+ -+ + -+| ?60-89 ?| ?Stage two ?| ? Decreased GFR ? + + +- +| ?30-59 ?| ?Stage three ?| ? Stage three ? + + +- +| ?15-29 ?| ?Stage four ? | ? Stage four ?+ -+ + -+| ?<15 (or dialysis) ? ?| ?Stage five ? | ? Stage five ?+ -+ + -+ *Each stage assumes the associated GFR level has been in effect for at least three months. ?Stages 1 to 5, with or without kidney disease, indicate chronic kidney disease. Notes: Determination of stages one and two (with eGFR >59mL/min/1.73 m2) requires estimation of kidney damage for at least three months as defined by structural or functional abnormalities of the kidney, manifested by either:Pathological abnormalities or Markers of kidney damage (including abnormalities in the composition of the blood or urine or abnormalities in imaging tests). [facility]IN[facility]IS2021-08-04 02:02:53 Test Item Value Reference Range Interpretation Comments APPEARANCE (test code = Clear Clear 5516898271) COLOR (test code = Straw Yellow A 9802254897) PH (test code = 4.8-8.0 8249457120) SP GRAVITY (test code = 1.003-1.030 0882344888) GLU U QUAL (test code = Normal Normal 7555374539) BLOOD (test code = Negative Negative 6269872424) KETONES (test code = Negative Negative 4150355522) PROTEIN (test code = Negative Negative 2887-8) UROBILIN (test code = Normal Normal 2369919491) BILIRUBIN (test code = Negative Negative 9462639020) NITRITE (test code = Negative Negative 5428739126) LEUK DANISH (test code = Negative Negative 1854284711) RBC/HPF (test code = See_Comment [Autom ated message] 6838330435) The system Pulse 8 generated this result transmitted ref erence range: 0 - 3 HP F. The reference range was not used to int erpret this result as normal/abnormal . WBC/HPF (test code = See_Comment [Autom ated message] 3953591843) The system Pulse 8 generated this result transmitted ref erence range: 0 - 5 HP F. The reference range was not used to int erpret this result as normal/abnormal . BACTERIA (test code = Negative Negative 7737254703) MUCOUS (test code = Slight Negative LPF A 4767973490) SQ EPITH (test code = HPF 5201445880) Lab Interpretation (test Abnormal code = 41001-3) [facility] SystemLIPASE2021-08-04 02:02:38 Test Item Value Reference Range Interpretation Comments LIPASE (test code = 0458536641) 92 U/L 0-220 Lab Interpretation (test code = Normal 12009-3) [facility] WITH [id number] 01:50:14 Test Item Value Reference Range Interpretation Comments WBC (test code = See_Comment [Automated message] 6690-2) The system Pulse 8 generated this result transmitted ref erence range: 4.30 - 1 1.10 10*3/?L. The re ference range was not u sed to interpret this result as normal/abnor mal. RBC (test code = See_Comment [Automated message] 779-8) The system Pulse 8 generated this result transmitted ref erence range: 3.93 - 5 .25 10*6/?L. The re ference range was not u sed to interpret this result as normal/abnor mal. HGB (test code = 12.9 g/dL 11.6-15.0 718-7) HCT (test code = 37.6 % 35.7-45.2 4544-3) MCV (test code = 88.5 fL 80.6-95.5 787-2) MCH (test code = 30.4 pg 25.9-32.8 785-6) MCHC (test code = 34.3 g/dL 31.6-35.1 786-4) RDW-SD (test code 39.0 fL 39.0-49.9 = 67787-6) RDW-CV (test code 12.1 % 12.0-15.5 = 788-0) PLT (test code = See_Comment [Automated message] 607-3) The system Pulse 8 generated this result transmitted ref erence range: 166 - 35 8 10*3/?L. The re ference range was not u sed to interpret this result as normal/abnor mal. MPV (test code = 10.3 fL 9.5-12.9 40432-2) NRBC/100 WBC (test See_Comment [Automat ed message] code = 9569480580) The syste [employer] which generated this result transmitted ref erence range: 0.0 - 10 .0 /100 WBCs. The refer ence range was not u sed to interpret this result as normal/abnor mal. NRBC x10^3 (test <0.01 See_Comment [Automated message] code = 6352276098) The syste m which generated this result transmitted ref erence range: 10*3/?L. The reference range was not used to interpr et this result as normal/abnormal . GRAN MAT (NEUT) % 65.9 % (test code = 770-8) IMM GRAN % (test 0.50 % code = 4799335316) LYMPH % (test code 23.8 % = 736-9) MONO % (test code 8.1 % = 5905-5) EOS % (test code = 1.3 % 713-8) BASO % (test code 0.4 % = 706-2) GRAN MAT 5.28 10*3/uL 1.88-7.09 x10^3(ANC) (test code = 6497612198) IMM GRAN x10^3 0.04 10*3/uL 0.00-0.06 (test code = 8248156538) LYMPH x10^3 (test 1.90 10*3/uL 1.32-3.29 code = 731-0) MONO x10^3 (test 0.65 10*3/uL 0.33-0.92 code = 742-7) EOS x10^3 (test 0.10 10*3/uL 0.03-0.39 code = 711-2) BASO x10^3 (test 0.03 10*3/uL 0.01-0.07 code = 704-7) [facility] [id number] 01:30:00 Test Item Value Reference Range Interpretation Comments POCT PREG (test code = 1605) negative On board controls acceptable with present C Line (test code = 3574) POCT PREG LOT # (test code = 3575) [id number] POCT PREG TEST DATE (test 10/28/2022 code = 3576) Lab Interpretation (test code = Normal 38266-3) [facility]-[id number] 16:10:51 Test Item Value Reference Interpretation Comments Range D-DIMER (test code = See_Comment [Autom ated 7768047761) message] The system which generated this result transmitted reference range : <0.41 ?g/mL (FEU). The reference range was not used to interpret this result as normal/abnormal . SWEETIE (test code = This test may be SWEETIE) used in conjunction with a clinical pretest probability (PTP) assessment model to exclude venous thromboembolism (VTE) in patients suspected of deep venous thrombosis (DVT) and pulmonary embolism (PE) A D-Dimer value less than 0.50 ?g/ml (FEU) has a negative predicative value of 96 to 100% (95% CI)and 97 to 100% (95% CI) as an aid in the diagnosis of deep vein thrombosis (DVT) and pulmonary embolism when there is low or moderate pretest probability of PE or DVT. D-Dimer values are expressed in initial fibrinogen equivalent units (FEU)" The assay results should be used with other information, including the clinical context, in forming a diagnosis. Lab Interpretation Normal (test code = 77451-5) [facility] SystemUrinalysis2021-06-15 15:44:39 Test Item Value Reference Range Interpretation Comments APPEARANCE (test code = Hazy Clear A 2095529577) COLOR (test code = Yellow Yellow 7134312559) PH (test code = 4.8-8.0 4457697707) SP GRAVITY (test code = 1.003-1.030 2118682169) GLU U QUAL (test code = Normal Normal 0004569220) BLOOD (test code = Negative Negative 7346011068) KETONES (test code = Negative Negative 7910716817) PROTEIN (test code = Negative Negative 2887-8) UROBILIN (test code = Normal Normal 1348015592) BILIRUBIN (test code = Negative Negative 2624331627) NITRITE (test code = Negative Negative 9813719282) LEUK DANISH (test code = Negative Negative 4986683973) RBC/HPF (test code = See_Comment [Autom ated message] 0824589550) The system Pulse 8 generated this result transmitted ref erence range: 0 - 3 HP F. The reference range was not used to int erpret this result as normal/abnormal . WBC/HPF (test code = See_Comment [Autom ated message] 5623348847) The system Pulse 8 generated this result transmitted ref erence range: 0 - 5 HP F. The reference range was not used to int erpret this result as normal/abnormal . BACTERIA (test code = Few Negative A 6954859275) MUCOUS (test code = Slight Negative LPF A 9307299800) SQ EPITH (test code = HPF 3717772359) HYAL CAST (test code = See_Comment [Aut omated message] 1982128982) The system Pulse 8 generated this result transmitted ref erence range: <=2 LPF. The reference range was not used to int erpret this result as normal/abnormal . Lab Interpretation (test Abnormal code = 77781-5) [facility] (IMMUNOASSAY) - COMPREHENSIVE DRUG [id number] 15:39:38 Test Item Value Reference Range Interpretation Comments AMPHET (test code = Negative Negative 2881435006) LOU U (test code = Negative Negative 6731053199) BENZO U (test code = Negative Negative 3028760126) Cocaine Metabolite (test Negative Negative code = 1287608307) METHADONE (test code = Negative Negative 4641379302) OPIATES (test code = Negative Negative 6722702532) PCP (test code = Negative Negative 9692343648) THC (test code = Negative Negative 5456426414) SWEETIE (test code = SWEETIE) Urine Drug Cutoff Ranges Cocaine: ? 150 ng/mLBenzodiazepines: ? ? 200 ng/mLMethadone: ? 300 ng/mLAmphetamine: ? 1,000 ng/mLOpiates: ? 300 ng/mLCannabinoids: ?50 ng/mLPhencyclidine: ? ? ? 25 ng/mLBarbiturates: ?200 ng/mL The results are to be used only for medical (i.e., treatment) purposes. Unconfirmed screening results must not be used for non-medical purposes (e.g., employment testing, legal testing). Lab Interpretation (test Normal code = 82474-4) [facility] SystemTroponin [id number] 15:30:23 Test Item Value Reference Range Interpretation Comments TROPONIN I (test 0.002 ng/mL See_Comment [Automated code = 5191455730) message] The system which generated this result transmitted reference range : <=0.034. The reference range was not used to interpret this result as normal/abnormal . SWEETIE (test code = Equal or Less than SWEETIE) 0.034 ng/ml---Normal ?Note: Cardiac troponin begins to rise 3-4 hours after the onset of ischemia. Repeat in 4-6 hours if the sample was drawn within 3-4 hours of the onset of the symptom and found normal. Between 0.035 and 0.120 ng/mL--- Borderline. Questionable myocardial injury or necrosis ? ?Note: Serial measurement may be necessary to confirm or exclude the diagnosis of myocardial injury or necrosis; Clinical correlation (symptoms, EKGs, imaging studies, and others) required; Repeat in 4-6 hours if clinically indicated. ? Equal or Higher than 0.121 ng/mL---Abnormal. Myocardial Injury or Necrosis Likely ? Biotin has been reported to cause a negative bias, interpret results relative to patient's use of biotin. ? Lab Interpretation Normal (test code = 87488-6) [facility] SystemXR CHEST 1 [id number] 15:30:10EXAM: XR CHEST 1 VW HISTORY: chest pain COMPARISON: None. FINDINGS: The heart and great vessels arenormal and the lungs are well expanded andclear. ? [facility], Radiant Results Inft User - 110:31 AM CDT EXAM: XR CHEST 1 VWHISTORY:chest pain COMPARISON: None.FINDINGS:The heart and great vessels are normal and the lungs are well ex panded andclear.[facility] System[facility]AL [id number] 15:27:06 Test Item Value Reference Range Interpretation Comments NT-proBNP (test code 84 pg/mL See_Comment [Autom ated = 8599935790) message] The system which generated this result transmitted reference range : <=125. The reference range was not used to interpret this result as normal/abnormal . SWEETIE (test code = SWEETIE) Biotin has been reported to cause a negative bias, interpret results relative to patient's use of biotin. Lab Interpretation Normal (test code = 18064-1) [facility] (NA, K, CL, CO2, GLUCOSE, BUN, CREATININE, CA)2021-04-12 15:18:22 Test Item Value Reference Range Interpretation Comments NA (test code = 139 mmol/L 135-145 7944693731) K (test code = 3.8 mmol/L 3.5-5.0 2919007825) CL (test code = 103 mmol/L 98-108 6475772914) CO2 TOTAL (test code 26 mmol/L 23-31 = 0510606236) AGAP (test code = 2-16 4425760948) BUN (test code = 11 mg/dL 7-23 5223022196) GLUCOSE (test code = 88 mg/dL 70-110 0426451258) CREATININE (test code 0.75 mg/dL 0.50-1.04 = 7137410156) CALCIUM (test code = 9.6 mg/dL 8.6-10.6 6095378143) eGFR (test code = mL/min/1.73m2 6939808247) SWEETIE (test code = SWEETIE) Association of Glomerular Filtration Rate (GFR) and Staging of Kidney Disease* + + +- +| GFR (mL/min/1.73 m2) ?| With Kidney Damage ?| ?Without Kidney Damage+ ------+ ----+ ------+| ?>90 ?| ?Stage one ?| ? Normal ?+ -+ + -+| ?60-89 ?| ?Stage two ?| ? Decreased GFR ? + + +- +| ?30-59 ?| ?Stage three ?| ? Stage three ? + + +- +| ?15-29 ?| ?Stage four ? | ? Stage four ?+ -+ + -+| ?<15 (or dialysis) ? ?| ?Stage five ? | ? Stage five ?+ -+ + -+ *Each stage assumes the associated GFR level has been in effect for at least three months. ?Stages 1 to 5, with or without kidney disease, indicate chronic kidney disease. Notes: Determination of stages one and two (with eGFR >59mL/min/1.73 m2) requires estimation of kidney damage for at least three months as defined by structural or functional abnormalities of the kidney, manifested by either:Pathological abnormalities or Markers of kidney damage (including abnormalities in the composition of the blood or urine or abnormalities in imaging tests). [facility] (ALB, T.PRO, BILI T, BU/BC, ALT, AST, ALK PHOS)2021-04-12 15:18:22 Test Item Value Reference Range Interpretation Comments TOTAL BILI (test code = 1746312195) 0.5 mg/dL 0.1-1.1 BILI UNCON (test code = 1337112147) 0.3 mg/dL 0.1-1.1 BILI CONJ (test code = 1510507047) 0.0 mg/dL 0.0-0.3 T PROTEIN (test code = 3463992729) 7.3 g/dL 6.3-8.2 ALBUMIN (test code = 9103594253) 4.4 g/dL 3.5-5.0 ALK PHOS (test code = 0737791590) 73 U/L 34-122 ALTv (test code = 1742-6) 20 U/L 5-35 AST(SGOT) (test code = 1743171373) 34 U/L 13-40 Lab Interpretation (test code = Normal 21750-8) [facility] SystemCREATINE [id number] 15:18:22 Test Item Value Reference Range Interpretation Comments CK (test code = 5445565957) 70 U/L 33-194 Lab Interpretation (test code = Normal 95533-2) [facility] SystemCBC with [id number] 15:04:44 Test Item Value Reference Range Interpretation Comments WBC (test code = See_Comment [Automated 6299-2) message] The sy stem which generated this result transmitted reference range : 4.30 - 11.10 10*3/?L. The reference range was not used to interpret this result as normal/abnormal . RBC (test code = See_Comment [Automated 019-8) message] The sy stem which generated this result transmitted reference range : 3.93 - 5.25 10*6/?L. The reference range was not used to interpret this result as normal/abnormal . HGB (test code = 12.9 g/dL 11.6-15.0 718-7) HCT (test code = 38.6 % 35.7-45.2 4544-3) MCV (test code = 90.6 fL 80.6-95.5 787-2) MCH (test code = 30.3 pg 25.9-32.8 785-6) MCHC (test code = 33.4 g/dL 31.6-35.1 786-4) RDW-SD (test code = 41.2 fL 39.0-49.9 84093-5) RDW-CV (test code = 12.5 % 12.0-15.5 788-0) PLT (test code = See_Comment [Automated 777-3) message] The sy stem which generated this result transmitted reference range : 166 - 358 10*3/ ?L. The reference r chela was not used to interpret this result as normal/abnormal . MPV (test code = 10.8 fL 9.5-12.9 34548-7) NRBC/100 WBC (test See_Comment [Automat ed code = 5842902407) message] The system which generated this result transmitted reference range : 0.0 - 10.0 /100 WBCs. The refer ence range was not u sed to interpret th is result as normal/abnormal . NRBC x10^3 (test code <0.01 See_Comment [Auto mated = 9666272466) message] The s ystem which generated this result transmitted reference range : 10*3/?L. The reference range was not used to interpret this result as normal/abnormal . GRAN MAT (NEUT) % 71.4 % (test code = 770-8) IMM GRAN % (test code 0.40 % = 6897988895) LYMPH % (test code = 17.3 % 736-9) MONO % (test code = 8.5 % 5905-5) EOS % (test code = 1.8 % 713-8) BASO % (test code = 0.6 % 706-2) GRAN MAT x10^3(ANC) 3.51 10*3/uL 1.88-7.09 (test code = 9807804803) IMM GRAN x10^3 (test <0.03 0.00-0.06 code = 8998659926) LYMPH x10^3 (test code 0.85 10*3/uL 1.32-3.29 L = 731-0) MONO x10^3 (test code 0.42 10*3/uL 0.33-0.92 = 742-7) EOS x10^3 (test code = 0.09 10*3/uL 0.03-0.39 711-2) BASO x10^3 (test code 0.03 10*3/uL 0.01-0.07 = 704-7) Lab Interpretation Abnormal (test code = 09133-8) [facility] SystemPOCT [id number] 15:01:00 Test Item Value Reference Range Interpretation Comments POCT PREG (test code = 1605) negative On board controls acceptable with present C Line (test code = 3574) POCT PREG LOT # (test code = 3575) [id number] POCT PREG TEST DATE (test 09/27/2022 code = 3576) Lab Interpretation (test code = Normal 80687-0) [facility] SystemLaceration [id number] 08:47:00Cristiana Ortiz, DO ? ? 08/21/2020 ?3:49 AMLaceration RepairPerformed by: Cristiana Ortiz DOAuthorized by: Cristiana Ortiz DO Consent: ?Consent obtained: ?Verbal ?Consent given by: ?Patient ?Risks discussed: ?Infection, need for additional repair, poor cosmetic result, pain and poor wound healing ? Alternatives discussed: ?No treatmentAnesthesia (see MAR for exact dosages): ?Anesthesia method: ?Local infiltration ?Local anesthetic: ?Lidocaine 1% w/o epiLaceration details: ?Location: ?Finger ?Finger location: ?L thumb ?Length (cm): ?3 ?Depth (mm): ?5Repair type: ?Repair type: ?ComplexPre-procedure details: ?Preparation: ?Imaging obtained to evaluate for foreign bodiesExploration: ?Hemostasis achieved with: ?Tourniquet ?Wound exploration: wound explored through full range of motion ? ?Woundextent: underlying fracture ? ?Wound extent: no muscle damage noted, no nerve damage noted, no tendon damage noted and no vascular damage noted ? ?Contaminated: no ?Treatment: ?Area cleansed with: ?Hibiclens ?Amount of cleaning: ?Extensive ?Debridement: ?Minimal ?Undermining: ?Minimal ?Scar revision:yes ?Skin repair: ?Repair method: ?Sutures ?Suture size: ?5-0 ?Suture material: ?Prolene ?Suture technique: ?Simple interrupted ?Number of sutures: ?7Approximation: ?Approximation: ?ClosePost-procedure details: ?Dressing: ?Antibiotic ointment and splint for protection ?Patient tolerance of procedure: ?Tolerated well, no immediate complicationsComments: ? 1 nailbed laceration and substitute nail placed and retention sutures placed. See photo.[facility] SystemCOVID-19 (ID NOW RAPID TESTING)2020-08-21 08:34:00 Test Item Value Reference Range Interpretation Comments SARS-CoV-2 Rapid ID NOW Not Detected Not Detected (test code = 70911-0) SWEETIE (test code = SWEETIE) ID NOW COVID-19 Assay is an isothermal nucleic acid amplification test intended for the qualitative detection of nucleic acid from SARS-CoV-2 viral RNA in nasopharyngeal (DIE PRESSER) specimens. It is used under Emergency Use Authorization (EUA) by FDA. The limit of detection (LOD) of the assay is 125 Genome Equivalents/mL. A positive result is indicative of the presence of SARS-CoV-2 RNA. ?Clinical correlation with patient history and other diagnostic information is necessary to determine patient infection status. A negative (Not Detected) result does not preclude SARS-CoV-2 infection. In patients with clinical symptoms and other tests that are consistent with SARS-CoV-2 infection, negative results should be treated as presumptive negative and a new specimen should be tested with alternative PCR molecular test. Invalid: Please collect a new specimen for repeat patient testing if clinically indicated. Lab Interpretation Normal (test code = 33301-5) [facility]
[2022-01-23] MEDS ORDERED: NA CHLORIDE 0.9% 1,000 ML ONE (17:48)
[2022-01-23 17:51] LABS: Urine Blood Negative (Negative); Urine Glucose Negative (Negative); Urine Protein Negative (Negative); Urine Specific Gravity 1.025 (1.005-1.030)
[2022-01-23 18:01] LABS: Absolute Lymphocytes (CBC) 1.3 K/uL (0.7-4.9); MPV 8.3 fL (7.6-11.3); RBC Red Blood Cell Count 4.18 M/uL (3.86-4.86)
[2022-01-23 18:03] LABS: Protime INR 1.07
[2022-01-23 18:33] LABS: ALT/SGPT 34 U/L (12-78); AST/SGOT 12 U/L (15-37); Albumin 3.7 g/dL (3.4-5.0); Alkaline Phosphatase 84 U/L (45-117); BUN Blood Urea Nitrogen 10 mg/dL (7-18); Bicarbonate 26 mmol/L (21-32); Bilirubin Total 0.4 mg/dL (0.2-1.0); Glucose Level 90 mg/dL (74-106); Lipase 94 U/L (73-393); Magnesium 1.7 mg/dL (1.8-2.4); NT PRO-BNP 189 pg/mL (<125); Potassium 3.7 mmol/L (3.5-5.1); Protein, Total 7.5 g/dL (6.4-8.2); Sodium Level 140 mmol/L (136-145); Troponin High Sensitivity 3.9 pg/mL (<58.9)
[2022-01-23 18:35] LABS: Bilirubin Direct < 0.1 mg/dL (0-0.2)
--- NOTE | 2022-01-23 18:46 | RAD REPORT ---
EXAM DESCRIPTION: RAD - Chest Single View - 01/23/2022 6:05 pm CLINICAL HISTORY: COUGH COMPARISON: None TECHNIQUE: AP portable chest image was obtained 01/23/2022 6:05 pm . FINDINGS: Lungs are clear. No pulmonary edema, failure or volume overload. Heart and vasculature are normal. No measurable pleural effusion and no pneumothorax. No acute bony abnormality seen. No acute aortic findings suspected. IMPRESSION: No acute cardiopulmonary process.
--- NOTE | 2022-01-23 19:19 | EDPHYS ---
Physician Documentation [facility] Name: Genet Webb Age: 27 yrs Sex: Female : 1995 Arrival Date: 01/23/2022 Time: 17:12 Bed 18 Private MD: ED Physician Aneudy Reyes HPI: 01/23 17:47 This 27 yrs old Female presents to ER via Ambulatory with complaints of Leg janelle Swelling. 17:47 The patient presents with decreased range of motion, pain, swelling. The complaints janelle affect the right leg and left leg. Context: The problem was sustained at home, the patient can fully bear weight. Onset: The symptoms/episode began/occurred 5 day(s) ago. Modifying factors: The symptoms are alleviated by nothing. the symptoms are aggravated by movement, weight bearing. Associated signs and symptoms: The patient has no apparent associated signs or symptoms. Severity of symptoms: At their worst the symptoms were mild in the emergency department the symptoms are unchanged. [employer]: 17:25 LMP 01/05/2022 tw2 Historical: - Allergies: 17:26 No Known Allergies; tw2 - Home Meds: 17:26 diclofenac sodium 75 mg oral TbEC 1 tab 2 times per day [Active]; gabapentin 400 mg tw2 oral cap 1 cap once a day [Active]; - PMHx: 17:26 None; tw2 - PSHx: 17:26 None; tw2 - Immunization history:: Client reports receiving the 2nd dose of the Covid vaccine. - Social history:: Smoking status: Patient reports use of chewing tobacco. - Family history:: not pertinent. ROS: 17:47 Constitutional: Negative for fever, chills, and weight loss, Eyes: Negative for injury, janelle pain, redness, and discharge, ENT: Negative for injury, pain, and discharge, Neck: Negative for injury, pain, and swelling, Cardiovascular: Negative for chest pain, palpitations, and edema, Respiratory: Negative for shortness of breath, cough, wheezing, and pleuritic chest pain, Abdomen/GI: Negative for abdominal pain, nausea, vomiting, diarrhea, and constipation, Back: Negative for injury and pain, : Negative for injury, bleeding, discharge, and swelling, Skin: Negative for injury, rash, and discoloration, Neuro: Negative for headache, weakness, numbness, tingling, and seizure, Psych: Negative for depression, anxiety, suicide ideation, homicidal ideation, and hallucinations, Allergy/Immunology: Negative for hives, rash, and allergies, Endocrine: Negative for neck swelling, polydipsia, polyuria, polyphagia, and marked weight changes, Hematologic/Lymphatic: Negative for swollen nodes, abnormal bleeding, and unusual bruising. 17:47 MS/extremity: Positive for decreased range of motion, pain, swelling, tenderness, of the right leg and left leg. Exam: 17:47 Constitutional: This is a well developed, well nourished patient who is awake, alert, janelle and in no acute distress. Head/Face: Normocephalic, atraumatic. Eyes: Pupils equal round and reactive to light, extra-ocular motions intact. Lids and lashes normal. Conjunctiva and sclera are non-icteric and not injected. Cornea within normal limits. Periorbital areas with no swelling, redness, or edema. ENT: Nares patent. No nasal discharge, no septal abnormalities noted. Tympanic membranes are normal and external auditory canals are clear. Oropharynx with no redness, swelling, or masses, exudates, or evidence of obstruction, uvula midline. Mucous membranes moist. Neck: Trachea midline, no thyromegaly or masses palpated, and no cervical lymphadenopathy. Supple, full range of motion without nuchal rigidity, or vertebral point tenderness. No Meningismus. Chest/axilla: Normal chest wall appearance and motion. Nontender with no deformity. No lesions are appreciated. Cardiovascular: Regular rate and rhythm with a normal S1 and S2. No gallops, murmurs, or rubs. Normal PMI, no JVD. No pulse deficits. Respiratory: Lungs have equal breath sounds bilaterally, clear to auscultation and percussion. No rales, rhonchi or wheezes noted. No increased work of breathing, no retractions or nasal flaring. Abdomen/GI: Soft, non-tender, with normal bowel sounds. No distension or tympany. No guarding or rebound. No evidence of tenderness throughout. Back: No spinal tenderness. No costovertebral tenderness. Full range of motion. Skin: Warm, dry with normal turgor. Normal color with no rashes, no lesions, and no evidence of cellulitis. Neuro: Awake and alert, GCS 15, oriented to person, place, time, and situation. Cranial nerves II-XII grossly intact. Motor strength 5/5 in all extremities. Sensory grossly intact. Cerebellar exam normal. Normal gait. 17:47 Musculoskeletal/extremity: Extremities: pain, swelling, ROM: full active range of motion, full passive range of motion, Circulation is intact in all extremities. Sensation intact. Compartment Syndrome exam of affected extremity: is normal. DVT Exam: swelling, tenderness. 18:08 ECG was reviewed by the Attending Physician. [facility] Vital Signs: 17:23 BP 130 / 83; Pulse 103; Resp 17; Temp 98.9(TE); Pulse Ox 100% on R/A; tw2 17:25 BP 2 / ???; Weight 113.4 kg; Height 5 ft. 6 in. (167.64 cm); Pain 9/10; tw2 18:56 BP 109 / 73; Pulse 78; Resp 13; Pulse Ox 98% on R/A; ww 19:15 BP 105 / 65; Pulse 76; Resp 19; Pulse Ox 99% ; vc1 17:25 Body Mass Index 40.35 (113.40 kg, 167.64 cm) tw2 MDM: 17:31 Patient medically screened. janelle 17:50 Differential diagnosis: contusion, abrasion, tendonitis. Data reviewed: vital signs, [facility] nurses notes, lab test result(s), CBC, electrolytes, hepatic panel, EKG, radiologic studies, doppler, plain films. Data interpreted: fuse spooler: rate is 106 beats/min, rhythm is regular, Pulse oximetry: on room air is 100 %. Test interpretation: by ED physician or midlevel provider: ECG, plain radiologic studies. Counseling: I had a detailed discussion with the patient and/or guardian regarding: the historical points, exam findings, and any diagnostic results supporting the discharge/admit diagnosis, lab results, radiology results, the need for further work-up and treatment in the hospital. 01/23 17:31 Order name: Basic Metabolic Panel; Complete Time: 18:50 [facility] 01/23 17:31 Order name: CBC with Diff; Complete Time: 18:50 [facility] 01/23 17:31 Order name: LFT's; Complete Time: 18:50 [facility] 01/23 17:31 Order name: Magnesium; Complete Time: 18:50 [facility] 01/23 17:31 Order name: NT PRO-BNP; Complete Time: 18:50 [facility] 01/23 17:31 Order name: PT-INR; Complete Time: 18:50 [facility] 01/23 17:31 Order name: Troponin HS; Complete Time: 18:50 [facility] 01/23 17:31 Order name: XRAY Chest (1 view); Complete Time: 18:50 [facility] 01/23 17:32 Order name: Lipase; Complete Time: 18:50 [facility] 01/23 17:44 Order name: US Extremity Venous W Compression Artem [facility] 01/23 17:51 Order name: Urine Dipstick-Ancillary; Complete Time: 18:00 [facility] 01/23 17:53 Order name: Urine --Ancillary (enter results) 01/23 18:06 Order name: LAB Add On 01/23 18:11 Order name: Thyroid Stimulating Hormone; Complete Time: 18:50 ED[facility] 01/23 17:31 Order name: EKG; Complete Time: 17:32 [facility] 01/23 17:31 Order name: Cardiac monitoring; Complete Time: 17:52 [facility] 01/23 17:31 Order name: EKG - Nurse/Tech; Complete Time: 17:34 [facility] 01/23 17:31 Order name: IV Saline Lock; Complete Time: 17:52 [facility] 01/23 17:31 Order name: Labs collected and sent; Complete Time: 17:52 [facility] 01/23 17:31 Order name: O2 Per Protocol; Complete Time: 17:52 [facility] 01/23 17:31 Order name: O2 Sat Monitoring; Complete Time: 17:52 [facility] 01/23 17:31 Order name: Urine Dipstick-Ancillary (obtain specimen); Complete Time: 17:54 [facility] 01/23 17:44 Order name: Urine Test (obtain specimen); Complete Time: 17:52 [facility] EC:08 Rate is 88 beats/min. Rhythm is regular. QRS [place] is Normal. RI interval is normal. QRS janelle interval is normal. QT interval is normal. No Q waves. T waves are Normal. No ST changes noted. Clinical impression: Normal ECG and No evidence of ischemia. Interpreted by me. Reviewed by me. Administered Medications: 18:03 Drug: NS 0.9% 1000 ml Route: IV; Rate: 75 ml/hr; Site: right antecubital; ww 20:15 Follow up: IV Status: Completed infusion; IV Intake: 300ml vc1 19:30 Drug: Magnesium Sulfate 1 grams Route: IVPB; Infused Over: 1 hrs; Site: right vc1 antecubital; 20:14 Follow up: Response: No adverse reaction; IV Status: Completed infusion; IV Intake: vc1 100ml 19:30 Drug: Lasix (furosemide) 20 mg Route: IVP; Site: right antecubital; vc1 20:00 Follow up: Response: No adverse reaction vc1 19:37 Drug: Potassium Effervescent Tablet 25 mEq Route: PO; vc1 20:00 Follow up: Response: No adverse reaction vc1 Disposition Summary: 01/23/22 19:18 Discharge Ordered Location: Home janelle Problem: new janelle Symptoms: have improved janelle Condition: Stable janelle Diagnosis - Edema, unspecified janelle - Obesity, unspecified janelle - Other chronic pain - back janelle - Hypomagnesemia janelle Followup: janelle - With: Private Physician - When: 2 - 3 days - Reason: Recheck today's complaints, Continuance of care, Re-evaluation by your physician Followup: janelle - With: - When: 2 - 3 days - Reason: Recheck today's complaints, Re-evaluation by your physician Discharge Instructions: - Discharge Summary Sheet janelle - Chronic Back Pain janelle - Chronic Pain, Adult janelle - Potassium Content of Foods janelle - Edema janelle - Hypomagnesemia janelle - Obesity, Adult janelle - Edema, [id number] janelle - Obesity, Adult, [id number] janelle - Peripheral Edema janelle Forms: - Medication Reconciliation Form janelle - Thank You Letter janelle - Antibiotic Education janelle - Prescription Opioid Use janelle Prescriptions: - Lasix 20 mg Oral Tablet - take 1 tablet by ORAL route every 2 days; 4 tablet; Refills: 0, Product janelle Selection Permitted - Potassium Chloride 20 meq Oral Packet - take 1 packet by ORAL route once daily 1 packet in 6 (six) ounces of water or janelle juice; Take after meal; 7 packet; Refills: 0, Product Selection Permitted Signatures: Dispatcher [employer] Aneudy Hurley MD MD cha Wise, Tara, RN RN tw2 Carolina Garcia RN RN ww Jocy Marcano RN RN vc1
--- NOTE | 2022-01-23 19:19 | ER ---
Nurse's Notes [facility] Name: Genet Webb Age: 27 yrs Sex: Female : 1995 Arrival Date: 01/23/2022 Time: 17:12 Bed 18 Private MD: Diagnosis: Edema, unspecified;Obesity, unspecified;Other chronic pain-back;Hypomagnesemia Presentation: 01/23 17:23 Chief complaint: Patient states: both of my legs are swelling. its been going on a tw2 couple of times a week. started yesterday and wasn't as bad. then today its worse. the swelling is worse in the morning. and my whole face was swollen too. it feels like my bones are on fire and when i walk it feels like is going to shatter. Coronavirus screen: At this time, the client does not indicate any symptoms associated with coronavirus-19. Ebola Screen: Patient denies travel to an Ebola-affected area in the 21 days before illness onset. Initial Sepsis Screen: Does the patient meet any 2 criteria? No. Patient's initial sepsis screen is negative. Does the patient have a suspected source of infection? No. Patient's initial sepsis screen is negative. Risk Assessment: Do you want to hurt yourself or someone else? Patient reports no desire to harm self or others. Onset of symptoms was January 23, 2022. 17:23 Method Of Arrival: Ambulatory tw2 17:23 Acuity: KETURAH 3 tw2 Triage Assessment: 17:26 General: Appears in no apparent distress. obese, well groomed, Behavior is calm, tw2 cooperative, appropriate for age. Pain: Complains of pain in right leg and left leg. 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 - Social history:: Smoking status: Patient reports use of chewing tobacco. - Family history:: not pertinent. Screenin:04 Abuse screen: Denies threats or abuse. Denies injuries from another. Nutritional ww screening: No deficits noted. Tuberculosis screening: No symptoms or risk factors identified. Fall Risk None identified. Assessment: 18:04 General: Appears in no apparent distress. comfortable, Behavior is calm, cooperative. ww Pain: Denies pain. Neuro: Level of Consciousness is awake, alert, obeys commands, Oriented to person, place, time, situation, Moves all extremities. Speech is normal. Cardiovascular: Reports shortness of breath, Capillary refill < 3 seconds Patient's skin is warm and dry. Edema is 2+ to left foot, left toes, right foot and right toes. Respiratory: Airway is patent Respiratory effort is labored breathing when talking Respiratory pattern is regular, symmetrical. GI: No signs and/or symptoms were reported involving the gastrointestinal system. Abdomen is non-distended. : No signs and/or symptoms were reported regarding the genitourinary system. Urine is clear. EENT: No signs and/or symptoms were reported regarding the EENT system. Derm: No signs and/or symptoms reported regarding the dermatologic system. Skin is healthy with good turgor. 19:39 Reassessment: Patient and/or family updated on plan of care and expected duration. Pain vc1 level reassessed. Patient is alert, oriented x 3, equal unlabored respirations, skin warm/dry/pink. Patient states symptoms have not improved. Cardiovascular: Edema is 2+ to left ankle, left foot, left toes, right ankle, right foot and right toes. Derm: Skin is healthy with good turgor. Vital Signs: 17:23 BP 130 / 83; Pulse 103; Resp 17; Temp 98.9(TE); Pulse Ox 100% on R/A; tw2 17:25 BP 2 / ???; Weight 113.4 kg; Height 5 ft. 6 in. (167.64 cm); Pain 9/10; tw2 18:56 BP 109 / 73; Pulse 78; Resp 13; Pulse Ox 98% on R/A; ww 19:15 BP 105 / 65; Pulse 76; Resp 19; Pulse Ox 99% ; vc1 17:25 Body Mass Index 40.35 (113.40 kg, 167.64 cm) tw2 ED Course: 17:12 Patient arrived in ED. as 17:25 Triage completed. tw2 17:27 Arm band placed on. tw2 17:29 Carolina Garcia, RN is Primary Nurse. ww 17:31 Aneudy Reyes MD is Attending Physician. [facility] 17:54 Lipase Sent. 5 17:54 Basic Metabolic Panel Sent. [facility] 17:54 CBC with Diff Sent. [facility] 17:54 LFT's Sent. [facility] 17:54 Magnesium Sent. [facility] 17:55 Patient has correct armband on for positive identification. Bed in low position. Call [facility] light in reach. Side rails up X 1. Adult w/ patient. Warm blanket given. Pillow given. travel pta on. Pulse ox on. NIBP on. 17:55 NT PRO-BNP Sent. [facility] 17:55 PT-INR Sent. [facility] 17:55 Troponin HS Sent. [facility] 18:04 Inserted saline lock: 20 gauge in right antecubital area, using aseptic technique. ww 18:07 XRAY Chest (1 view) In Process Unspecified. EDMS 18:57 LAB Add On Sent. 19:18 Edita Fisher MD is Referral Physician. [facility] 19:19 US Extremity Venous W Compression Artem In Process Unspecified. EDMS 20:13 No provider procedures requiring assistance completed. IV discontinued, intact, vc1 bleeding controlled, No redness/swelling at site. Pressure dressing applied. Administered Medications: 18:03 Drug: NS 0.9% 1000 ml Route: IV; Rate: 75 ml/hr; Site: right antecubital; ww 20:15 Follow up: IV Status: Completed infusion; IV Intake: 300ml vc1 19:30 Drug: Magnesium Sulfate 1 grams Route: IVPB; Infused Over: 1 hrs; Site: right vc1 antecubital; 20:14 Follow up: Response: No adverse reaction; IV Status: Completed infusion; IV Intake: vc1 100ml 19:30 Drug: Lasix (furosemide) 20 mg Route: IVP; Site: right antecubital; vc1 20:00 Follow up: Response: No adverse reaction vc1 19:37 Drug: Potassium Effervescent Tablet 25 mEq Route: PO; vc1 20:00 Follow up: Response: No adverse reaction vc1 Intake: 20:14 IV: 100ml; Total: 100ml. vc1 20:15 IV: 300ml; Total: 400ml. vc1 Outcome: 19:18 Discharge ordered by . janelle 20:13 Discharged to home ambulatory, with significant other. vc1 20:13 Condition: good 20:13 Discharge instructions given to patient, significant other, Instructed on discharge instructions, follow up and referral plans. medication usage, Diet Demonstrated understanding of instructions, follow-up care, medications, What to eat and to avoid. Prescriptions given X 2. 20:15 Patient left the ED. vc1 Signatures: Dispatcher [employer] EDGA Aneudy Reyes MD MD cha Martinez, Amelia as Wise, Tara, RN RN 2 Tatyana Meier Carolina Pérez, RN RN ww Jocy Marcano RN RN vc1
[2022-01-23] MEDS ORDERED: FUROSEMIDE 20 MG/ 2ML VIAL ONE (19:28)
[2022-01-23] MEDS ORDERED: MAGNESIUM SULFATE 1 gm IVPB 1 GM/100 ML BAG IV ONE (19:28)
[2022-01-23] MEDS ORDERED: POTASSIUM 25 MEQ EFFERV TAB ONE (19:28)
--- NOTE | 2022-01-23 19:38 | RAD REPORT ---
EXAM DESCRIPTION: US - Extrem Venous W Compress Artem - 01/23/2022 7:16 pm CLINICAL HISTORY: Pain;Swelling COMPARISON: None. TECHNIQUE: Real-time sonographic evaluation of the bilateral lower extremity common femoral, superfi cial femoral, popliteal and posterior tibial veins was performed. FINDINGS: Normal compressibility, flow augmentation, phasic flow and spontaneous flow are identified in the left and right lower extremity common femoral, superficial femoral, popliteal and posterior t ibial veins. No intraluminal filling defects seen. IMPRESSION: No DVT in either lower extremity.
[2022-01-23 20:14] LABS: Urine Specific Gravity/Preg 1.025 (1.005-1.030)
[2022-01-23 21:07] VITALS: TEMP 98.9
[2022-01-23 21:10] VITALS: BP 105/65; O2SAT 99
--- NOTE | 2022-01-24 12:34 | EKG ---
Test Date: 2022-01-23 Test Time: 17:56:[address] Foreman: MEASUREMENT RESULTS: Intervals: Rate: 88 GA: 146 QRSD: 78 QT: 342 QTc: 413 [place]: P: 38 GA: 146 QRS: 42 T: 18 INTERPRETIVE STATEMENTS: Normal sinus rhythm with sinus arrhythmia Normal ECG No previous ECG available for comparison Electronically Signed On 01-24-22 12:33:11 CDT by Erick Hirsch
== END 2022-01-23 20:15 | disposition home or self-care (01) ==
LOC: ER 17:11
DX: R60.9 Edema, unspecified (principal); G89.29 Other chronic pain; E83.42 Hypomagnesemia; E66.9 Obesity, unspecified; F17.220 Nicotine dependence, chewing tobacco, uncomplicated
CPT/HCPCS: 96365; 96361; 93005; 85025; 80048; 36415; 83735; 81025; 85610; 80076; 84443; 81003; 84484; 83690; 83880; 71045; 93970; 96375; 99284; J1940; J3475; J7030

== ENCOUNTER 2022-07-11 11:24 | Emergency (ER) | payer OTHER ==
--- OUTSIDE RECORDS SUMMARY | 2022-07-11 11:29 | XMS REPORT | Continuity of Care Document ---
:1995 Author Organization [facility] t Address [address] [place] [address] Care Team Providers Name Role Phone CTR, [facility] Primary Care Physician Unavailable CRISTIANA ORTIZ Attending Clinician Unavailable Cristiana Ortiz DO Attending Clinician Divya Ford MD Attending Clinician DIVYA FORD Attending Clinician Unavailable Romina Benitez Attending Clinician Doctor Unassigned, [place] Attending Clinician Unavailable Dhruv Claros Attending Clinician DHRUV COOPER Attending Clinician Unavailable DANIEL PRAJAPATI Attending Clinician Unavailable RAQUEL BROOKS Attending Clinician Unavailable Nish Feng APN Attending Clinician DIVYA FORD Admitting Clinician Unavailable RAQUEL BROOKS Admitting Clinician Unavailable Payers Payer Name Policy Type Policy Number Effective Date Expiration Date Anisha santiago [facility] [id number] 2019 00:00:00 Problems Condition Condition Condition Status Onset Resolution Last Treating Co mments Source Name Details Category Date Date Treatment Clinician Date No known No known Disease Unive rs active active ity of problems problems [facility] Allergies, Adverse Reactions, Alerts Allergy Allergy Status Severity Reaction(s) Onset Inactive Treating Comm ents Source Name Type Date Date Clinician NO KNOWN Drug Active Univers ALLERGIE Class ity of S [facility] Social History Social Habit Start Date Stop Date Quantity Comments Source Exposure to Not sure University SARS-CoV-2 [facility] [place] [facility] (event) [place] Tobacco use and 2019-11-08 2019-11-08 Smokeless tobacco [facility] exposure 00:00:00 00:00:00 non-user Alcohol intake 2019-11-08 2019-11-08 Ex-drinker [facility] 00:00:00 00:00:00 (finding) Sex Ass[birth year] At [birth year] [facility] 00:00:00 00:00:00 Smoking Status Start Date Stop Date Source Unknown [facility] Never smoked tobacco [facility] Medications Ordered Filled Start Stop Current Ordering Indication Dosage Frequency Signature Comments Components Source Medication Medication Date Date Medication? Clinician (SIG) Name Name chlorphenir 2020-10 Yes [id number] 4mg Take 1 Univers amine 4 mg 2-29 tablet by ity of tablet 00:00: mouth [place] 00 every 6 Medical (six) Branch hours as needed for Allergies or Runny nose. calcium/mag 2020-10 Yes [id number] 1{each} Take 1 Univers nesium/zinc 2-29 Each by ity o f (CALCIUM-MA 00:00: mouth [place] GNESUIUM-ZI 00 daily. Medica l NC) Branch 333-133-5 mg Tab benzonatate 2020-10 Yes [id number] 100mg Take 1 Univers 100 mg 2-29 capsule by ity of capsule 00:00: mouth 3 [place] 00 (three) Medical times Branch daily as needed for Cough. vitamin 2020-10- No [id number] 1{tbl} Take 1 Univers D3-folic 2-29 - [...] Medi megan 1:1:1 Sat Branch (FIRST-MOUT 08/13/21 HWASH BLM) at 1300, oral Routine suspension 15 mL acetaminoph 2020-10 No 1000mg 1,000 mg, Univers en 08-13 Oral, ity of (TYLENOL) 18:00: 17:10 ONCE, 1 [place] tablet [place] :[place] dose, On Medical 1,000 mg Sat Branch 08/13/21 at 1300, SEGUNDO activated 2020-10 No 50g 50 g, Univer s charcoal-so 08-13 Oral, ity of rbitoL 13:15: 12:42 ONCE, 1 [place] (ACTIDOSE/S 00 :00 dose, On [facility] ORBITAL) 25 Sat Branch gram/120 mL 08/13/21 suspension at 0815, 50 g SEGUNDO ketorolac 2020- No 30mg 30 mg, Unive rs (TORADOL) 06-01 Slow IV ity of injection 02:30: 01:45 Push, [place] 30 mg 00 :00 ONCE, 1 Medical dose, Tue Branch 05/31/21 at 2130, SEGUNDO
Fa culty member approving Restricted medication : Romina SOFIA diphenhydrA No 25mg 25 mg, Uni vers MINE 06-01 Slow IV ity of (BENADRYL) 02:30: 01:46 Push, [place] injection 00 :00 ONCE, 1 Medical 25 mg dose, e Branch 05/31/21 at 2130, STAT metoclopram No 10mg 10 mg, Uni vers maximus HCl 06-01 Slow IV ity of (REGLAN) 02:30: 01:44 Push, [place] injection 00 :00 ONCE, 1 Medical 10 mg dose, Tue Branch 05/31/21 at 2130, SEGUNDO NaCl 0.9% No 1000mL at 999 Uni vers (NS) bolus 06-01 mL/hr, ity of infusion 02:30: 03:25 1,000 mL, [place] as 1,000 mL 00 :00 IV Medical Infusion, Branch ONCE, 1 dose, [facility] 05/31/21 at 2130, STAT ibuprofen 2021-0 Yes [id number] 600mg Take 1 Univers 600 mg 8-03 tablet by ity of tablet 00:00: mouth [place] 00 every 6 Medical (six) Branch hours as needed for Pain (scale 4-6). benzonatate 2020-0 Yes [id number] 100mg Take 1 Univers 100 mg 8-03 capsule by ity of capsule 00:00: mouth 3 [place] 00 (three) Medical times Branch daily as needed for Cough. ondansetron 2020-0 Yes [id number] 4mg Take 1 Univers (ZOFRAN 8-03 tablet by ity of ODT) 4 mg 00:00: mouth [place] disintegrat 00 every 8 Medic al ing tablet (eight) Branch hours as needed for Nausea and Vomiting (N/V). ibuprofen 2020-0 Yes [id number] 600mg Take 1 Univers 600 mg 8-03 tablet by ity of tablet 00:00: mouth [place] 00 every 6 Medical (six) Branch hours as needed for Pain (scale 4-6). benzonatate 2020-0 Yes [id number] 100mg Take 1 Univers 100 mg 8-03 capsule by ity of capsule 00:00: mouth 3 [place] 00 (three) Medical times Branch daily as needed for Cough. ondansetron 2020-0 Yes [id number] 4mg Take 1 Univers (ZOFRAN 8-03 tablet by ity of ODT) 4 mg 00:00: mouth [place] disintegrat 00 every 8 Medic al ing tablet (eight) Branch hours as needed for Nausea and Vomiting (N/V). ibuprofen 2020-0 Yes [id number] 600mg Take 1 Univers 600 mg 8-03 tablet by ity of tablet 00:00: mouth [place] 00 every 6 Medical (six) Branch hours as needed for Pain (scale 4-6). ondansetron 2020-0 Yes [id number] 4mg Take 1 Univers (ZOFRAN 8-03 tablet by ity of ODT) 4 mg 00:00: mouth [place] disintegrat 00 every 8 Medic al ing tablet (eight) Branch hours as needed for Nausea and Vomiting (N/V). benzonatate 2020-0 2021- No [id number] 100mg Take 1 Univers 100 mg 8-03 12-29 capsule by ity of capsule 00:00: 00:00 mouth 3 [place] 00 :00 (three) Medical times Branch daily as needed for Cough. methocarbam 2020-0 Yes [id number] 500mg Take 1 Univers oL 500 mg 6-15 tablet by ity o f tablet 00:00: mouth 4 [place] 00 (four) Medical times Branch daily. ibuprofen 2020-0 Yes [id number] 600mg Take 1 U nivers 600 mg 6-15 tablet by ity of tablet 00:00: mouth [place] 00 every 6 Medical (six) Branch hours as needed for Pain (scale 4-6). methocarbam 2020-0 Yes [id number] 500mg Take 1 Univers oL 500 mg 6-15 tablet by ity o f tablet 00:00: mouth 4 [place] 00 (four) Medical times Branch daily. methocarbam 2020-0 Yes [id number] 500mg Take 1 Univers oL 500 mg 6-15 tablet by ity o f tablet 00:00: mouth 4 [place] 00 (four) Medical times Branch daily. methocarbam 2020-0 Yes [id number] 500mg Take 1 Univers oL 500 mg 6-15 tablet by ity o f tablet 00:00: mouth 4 [place] (four) Medical times Branch daily. ibuprofen 2020- No [id number] 600mg Take 1 Univers 600 mg 6-15 08-03 tablet by ity of tablet 00:00: 00:00 mouth [place] 00 :00 every 6 Medical (six) Branch hours as needed for Pain (scale 4-6). ondansetron 2019-10 Yes [id number] 4mg Take 1 Univers 4 mg 0-24 [...] Indication s: acute pain ondansetron 2019-10 Yes [id number] 4mg Take 1 Univers 4 mg 0-24 [...] Indication s: acute pain ondansetron 2019- Yes [id number] 4mg Take 1 Univers 4 mg 0-24 [...] Indication s: acute pain ondansetron 2019- Yes [id number] 4mg Take 1 Univers 4 mg 0-24 [...] Indication s: acute pain ondansetron 2019-10 Yes [id number] 4mg Take 1 Univers 4 mg 0-24 [...] Indication s: acute pain ondansetron 2019-10- No [id number] 4mg Take 1 Univers 4 mg 0-24 08-03 tablet by ity of disintegrat 00:00: 00:00 mouth [place] tablet 00 :00 every 8 Medica l (eight) Branch hours as needed for Nausea and Vomiting (N/V). clindamycin 2019-10- No [id number] 300mg Take 2 Univers 150 mg 0-24 - capsules ity of capsule 00:00: 04:59 by mouth 4 [place] 00 :00 (four) Medical times Branch daily for 7 days. cyclobenzap 2020-0 Yes [id number] 10mg Take 1 Univers rine 10 mg 1-08 tablet by ity of tablet 00:00: mouth 3 (three) Medical times Branch daily as needed for Muscle Spasms. cyclobenzap 2020-0 Yes [id number] 10mg Take 1 Univers rine 10 mg 1-08 tablet by ity of tablet 00:00: mouth 3 (three) Medical times Branch daily as needed for Muscle Spasms. cyclobenzap 2020-0 Yes [id number] 10mg Take 1 Univers rine 10 mg 1-08 tablet by ity of tablet 00:00: mouth 3 00 (three) Medical times Branch daily as needed for Muscle Spasms. cyclobenzap 2020-0 Yes [id number] 10mg Take 1 Univers rine 10 mg 1-08 tablet by ity of tablet 00:00: mouth 3 00 (three) Medical times Branch daily as needed for Muscle Spasms. cyclobenzap 2020-0 Yes [id number] 10mg Take 1 Univers rine 10 mg 1-08 tablet by ity of tablet 00:00: mouth 3 00 (three) Medical times Branch daily as needed for Muscle Spasms. cyclobenzap 2020-0 Yes [id number] 10mg Take 1 Univers rine 10 mg 1-08 tablet by ity of tablet 00:00: mouth 3 (three) Medical times Branch daily as needed for Muscle Spasms. cyclobenzap 2020-0 Yes [id number] 10mg Take 1 Univers rine 10 mg 1-08 tablet by ity of tablet 00:00: mouth 3 00 (three) Medical times Branch daily as needed for Muscle Spasms. cyclobenzap 2020-0 Yes [id number] 10mg Take 1 Univers rine 10 mg 1-08 tablet by ity of tablet 00:00: mouth 3 00 (three) Medical times Branch daily as needed for Muscle Spasms. venlafaxine Yes [facility] XR [facility]- [facility] (EFFEXOR-XR [facility]:00: Hospit a ) 75 MG 24 00 l hr capsule gabapentin 2018-10 Yes [facility] (NEURONTIN) 2 [facility] 400 mg 00:00: [facility] capsule 00 l diclofenac 2018-10 Yes [facility] (VOLTAREN) 2 st 75 MG EC 00:00: Hospita tablet 00 l gabapentin 2018-10 Yes 1200mg Take 1,200 Univers 400 mg 1-25 mg by ity of capsule 23:43: mouth daily. Medical Branch diclofenac 2018-10 Yes 75mg Take 75 mg U nivers 50 mg 1-25 by mouth ity of tablet 23:43: daily. Medical Branch gabapentin 2018-10 Yes 1200mg Take 1,200 Univers 400 mg 1-25 mg by ity of capsule 23:43: mouth daily. Medical Branch diclofenac 2018-10 Yes 75mg Take 75 mg U nivers 50 mg 1-25 by mouth ity of tablet 23:43: daily. Medical Branch gabapentin 2018-10 Yes 1200mg Take 1,200 Univers 400 mg 1-25 mg by ity of capsule 23:43: mouth daily. Medical Branch diclofenac 2018-10 Yes 75mg Take 75 mg U nivers 50 mg 1-25 by mouth ity of tablet 23:43: daily. Medical Branch gabapentin 2018-10 Yes 1200mg Take 1,200 Univers 400 mg 1-25 mg by ity of capsule 23:43: mouth daily. Medical Branch diclofenac 2018-10 Yes 75mg Take 75 mg U nivers 50 mg 1-25 by mouth ity of tablet 23:43: daily. [place] [address] Medical Branch gabapentin 2018-10 Yes 1200mg Take 1,200 Univers 400 mg 1-25 mg by ity of capsule 23:43: mouth [place] 04 daily. Medical Branch diclofenac 2018-10 Yes 75mg Take 75 mg U nivers 50 mg 1-25 by mouth ity of tablet 23:43: daily. [place] [address] Medical Branch gabapentin 2018-10 Yes 1200mg Take 1,200 Univers 400 mg 1-25 mg by ity of capsule 23:43: mouth [place] 04 daily. Medical Branch diclofenac 2018-10 Yes 75mg Take 75 mg U nivers 50 mg 1-25 by mouth ity of tablet 23:43: daily. [place] [address] Medical Branch gabapentin 2018-10 Yes 1200mg Take 1,200 Univers 400 mg 1-25 mg by ity of capsule 17:43: mouth [place] 04 daily. Medical Branch diclofenac 2018-10 Yes 75mg Take 75 mg U nivers 50 mg 1-25 by mouth ity of tablet 17:43: daily. [place] [address] Medical Branch gabapentin 2018-10 Yes 1200mg Take 1,200 Univers 400 mg 1-25 mg by ity of capsule 17:43: mouth [place] 04 daily. Medical Branch diclofenac 2018-10 Yes 75mg Take 75 mg U nivers 50 mg 1-25 by mouth ity of tablet 17:43: daily. [address] Branch ibuprofen 2018-10 Yes [id number] 600mg Take 1 Univers 600 mg 1-25 tablet by ity of tablet 00:00: mouth [place] 00 every 6 Medical (six) Branch hours as needed for Pain (scale 4-6). cyclobenzap 2018-10 Yes [id number] 10mg Take 1 Univers rine 10 mg 1-25 tablet by ity of tablet 00:00: mouth 3 [place] 00 (three) Medical times Branch daily. ibuprofen 2018-10 Yes [id number] 600mg Take 1 Univers 600 mg 1-25 tablet by ity of tablet 00:00: mouth [place] 00 every 6 Medical (six) Branch hours as needed for Pain (scale 4-6). cyclobenzap 2018-10 Yes [id number] 10mg Take 1 Univers rine 10 mg 1-25 tablet by ity of tablet 00:00: mouth 3 [place] 00 (three) Medical times Branch daily. ibuprofen 2019-1 Yes [id number] 600mg Take 1 Univers 600 mg 1-25 tablet by ity of tablet 00:00: mouth [place] 00 every 6 Medical (six) Branch hours as needed for Pain (scale 4-6). cyclobenzap 2018-10 Yes [id number] 10mg Take 1 Univers rine 10 mg 1-25 tablet by ity of tablet 00:00: mouth 3 [place] 00 (three) Medical times Branch daily. cyclobenzap 2018-10 Yes [id number] 10mg Take 1 Univers rine 10 mg 1-25 tablet by ity of tablet 00:00: mouth 3 [place] 00 (three) Medical times Branch daily. cyclobenzap 2018-10 Yes [id number] 10mg Take 1 Univers rine 10 mg 1-25 tablet by ity of tablet 00:00: mouth 3 [place] 00 (three) Medical times Branch daily. cyclobenzap 2018-10 Yes [id number] 10mg Take 1 Univers rine 10 mg 1-25 tablet by ity of tablet 00:00: mouth 3 00 (three) Medical times Branch daily. ibuprofen 2018-10 Yes [id number] 600mg Take 1 Univers 600 mg 1-25 tablet by ity of tablet 00:00: mouth [place] 00 every 6 Medical (six) Branch hours as needed for Pain (scale 4-6). cyclobenzap 2018-10 Yes [id number] 10mg Take 1 Univers rine 10 mg 1-25 tablet by ity of tablet 00:00: mouth 3 [place] 00 (three) Medical times Branch daily. ibuprofen 2018-10 Yes [id number] 600mg Take 1 Univers 600 mg 1-25 tablet by ity of tablet 00:00: mouth [place] 00 every 6 Medical (six) Branch hours as needed for Pain (scale 4-6). cyclobenzap 2018-10 Yes [id number] 10mg Take 1 Univers rine 10 mg 1-25 tablet by ity of tablet 00:00: mouth 3 [place] 00 (three) Medical times Branch daily. cyclobenzap 2018-10 Yes 10mg Q.[id number] Take 10 mg Methodi rine 1-[id number] (FLEXERIL) 00:00: 3D (three) Hosp almita 10 mg 00 times a l tablet day. ibuprofen 2018-10- No [id number] 600mg Take 1 Univers 600 mg 1-25 08-03 tablet by ity of tablet 00:00: 00:00 mouth [place] 00 :00 every 6 Medical (six) Branch hours as needed for Pain (scale 4-6). ibuprofen Yes [id number] 600mg Take 1 Univers 600 mg 7-28 105 tablet by ity of tablet 00:00: mouth [place] 00 every 6 Medical (six) Branch hours as needed for Pain (scale 1-3). cyclobenzap Yes [id number] 5mg Take 1 Univers rine 5 mg 2-01 tablet by ity o f tablet 00:00: mouth 3 [place] 00 (three) Medical times Branch daily. traMADOL Yes [id number] 50mg Take 1 Uni vers (ULTRAM) 50 2-01 tablet by ity of mg tablet 00:00: mouth [place] 00 every 6 Medical (six) Branch hours as needed for Pain (scale 4-6). cyclobenzap Yes [id number] 5mg Take 1 Univers rine 5 mg 2-01 tablet by ity o f tablet 00:00: mouth 3 00 (three) Medical times Branch daily. traMADOL Yes [id number] 50mg Take 1 Uni vers (ULTRAM) 50 2-01 tablet by ity of mg tablet 00:00: mouth [place] 00 every 6 Medical (six) Branch hours as needed for Pain (scale 4-6). Vital Signs Vital Name Observation Time Observation Value Comments Source Systolic blood 2021-10-26 15:26:00 142 mm[Hg] [facility] Diastolic blood 2021-10-26 15:26:00 74 mm[Hg] [facility] Heart rate 2021-10-26 15:26:00 87 /min [facility] Body temperature 2021-10-26 15:26:00 37.17 Olivia [facility] Respiratory rate 2021-10-26 15:26:00 16 /min [facility] Body height 2021-10-26 15:26:00 167.6 cm [facility] Body weight 2021-10-26 15:26:00 108.863 kg [facility] BMI 2021-10-26 15:26:00 38.74 kg/m2 [facility] [place] [facility] Oxygen saturation in 2021-10-26 15:26:00 100 /min University of Arterial blood by [facility] Pulse oximetry Branch Systolic blood 2021-08-13 18:00:00 117 mm[Hg] Univer sity of pressure [place] [facility] Diastolic blood 2021-08-13 18:00:00 77 mm[Hg] Unive rsity of pressure [place] [facility] Heart rate 2021-08-13 18:00:00 97 /min [facility]i [facility] [place] [facility] Respiratory rate 2021-08-13 18:00:00 17 /min Univ ersity [facility] [place] [facility] Oxygen saturation in 2021-08-13 18:00:00 98 /min University of Arterial blood by [facility] Pulse oximetry Branch Body temperature 2021-08-13 13:00:00 36.72 Olivia Univ ers[facility] [place] [facility] Systolic blood 2021-06-01 03:25:00 138 mm[Hg] Univer sity of pressure [place] [facility] Diastolic blood 2021-06-01 03:25:00 82 mm[Hg] Unive rsity of pressure [place] [facility] Heart rate 2021-06-01 03:25:00 82 /min [facility] [place] [facility] Respiratory rate 2021-06-01 03:25:00 16 /min Univ ers[facility] [place] [facility] Oxygen saturation in 2021-06-01 03:25:00 99 /min University of Arterial blood by [facility] Pulse oximetry Branch Body temperature 2021-05-31 23:06:00 37.11 Olivia [facility] [place] [facility] Body height 2021-05-31 23:06:00 167.6 cm [facility] [place] [facility] Body weight 2021-05-31 23:06:00 102.059 kg [facility] [place] [facility] BMI 2021-05-31 23:06:00 36.32 kg/m2 [facility] [place] [facility] Systolic blood 2021-04-12 16:40:08 126 mm[Hg] Univer sity of [facility] [place] [facility] Diastolic blood 2021-04-12 16:40:08 78 mm[Hg] Unive rsity of pressure [place] [facility] Heart rate 2021-04-12 16:40:08 68 /min [facility] [place] [facility] Respiratory rate 2021-04-12 16:40:08 16 /min Univ ersity [facility] [place] [facility] Oxygen saturation in 2021-04-12 16:40:08 100 /min University of Arterial blood by [place] [facility] megan Pulse oximetry Branch Body temperature 2021-04-12 14:08:00 36.78 Olivia [facility] [place] [facility] Body weight 2021-04-12 14:08:00 99.791 kg [facility] [place] [facility] BMI 2021-04-12 14:08:00 35.51 kg/m2 [facility] [place] [facility] Respiratory rate 2020-09-03 15:45:00 18 /min Univ [facility] [place] [facility] Body height 2020-09-03 15:45:00 167.6 cm [facility] [place] [facility] Body weight 2020-09-03 15:45:00 88.451 kg [facility] [place] [facility] BMI 2020-09-03 15:45:00 31.47 kg/m2 [facility] [place] [facility] Oxygen saturation in 2020-09-03 15:45:00 100 /min University of Arterial blood by [facility] Pulse oximetry Branch Systolic blood 2020-09-03 15:45:00 133 mm[Hg] Univer sity of [facility] [place] [facility] Diastolic blood 2020-09-03 15:45:00 84 mm[Hg] Unive rsity of [facility] [place] [facility] Heart rate 2020-09-03 15:45:00 72 /min [facility] [place] [facility] Body temperature 2020-09-03 15:45:00 36.83 Olivia [facility] [place] [facility] Systolic blood 2020-08-21 08:00:00 137 mm[Hg] Univer sity of pressure [place] [facility] Diastolic blood 2020-08-21 08:00:00 78 mm[Hg] Unive rsity of [facility] [place] [facility] Heart rate 2020-08-21 08:00:00 121 /min [facility] [place] [facility] Oxygen saturation in 2020-08-21 08:00:00 99 /min University of Arterial blood by [facility] Pulse oximetry Branch Body temperature 2020-08-21 07:25:00 37.22 Olivia [facility] [place] [facility] Respiratory rate 2020-08-21 07:25:00 16 /min Univ [facility] [place] [facility] Body height 2020-08-21 07:25:00 165.1 cm [facility] [place] [facility] Body weight 2020-08-21 07:25:00 86.183 kg [facility] BMI 2020-08-21 07:25:00 31.62 kg/m2 [facility] Systolic blood 2019-05-25 15:59:00 137 mm[Hg] Univer sity of pressure [facility] Diastolic blood 2019-05-25 15:59:00 83 mm[Hg] Unive rsity of [facility] Heart rate 2019-05-25 15:59:00 85 /min [facility] Body temperature 2019-05-25 15:59:00 36.89 Olivia [facility] 2019-05-25 15:59:00 18 /min [facility] Body height 2019-05-25 15:59:00 165.1 cm [facility] Body weight 2019-05-25 15:59:00 81.647 kg [facility] BMI 2019-05-25 15:59:00 29.95 kg/m2 [facility] Oxygen saturation in 2019-05-25 15:59:00 97 /min [facility] Arterial blood by [facility] Pulse oximetry [place] Procedures Procedure Date / Time Performing Clinician Source Performed RAPID INFLUENZA A/B 2021-10-26 15:36:00 Cristiana Ortiz [facility] CONSENT/REFUSAL FOR 2021-10-26 15:21:30 Doctor Unassigned, No Un [facility] DIAGNOSIS AND TREATMENT Name [facility] URINE DRUG (IMMUNOASSAY) 2021-08-13 18:13:00 Divya Ford [facility] DRUG [facility] n[facility] SCREEN POCT TEST 2021-08-13 12:50:00 Divya Ford [facility] URINALYSIS 2021-08-13 12:29:00 Divya Ford [facility] CREATINE KINASE 2021-08-13 12:28:00 Divya Ford [facility] FREE T4 2021-08-13 12:28:00 Divya Ford [facility] THYROID STIMULATING 2021-08-13 12:28:00 Divya Ford [facility] HORMONE [facility] COMP. METABOLIC PANEL 2021-08-13 12:28:00 Divya Ford [facility] ([id number]) [facility] SALICYLATE 2021-08-13 12:28:00 Divya Ford [facility] ETHANOL 2021-08-13 12:28:00 Divya Ford [facility] CBC WITH DIFF 2021-08-13 12:28:00 Divya Ford [facility] COVID-19 (ID NOW RAPID 2021-08-13 12:28:00 Divya Ford [facility] TESTING) Medical Branch LIPASE 2021-06-01 01:42:00 Romina Sofia Dedra [facility] COMP. METABOLIC PANEL 2021-06-01 01:42:00 Romina Sofia Ded[facility] ([id number]) [facility] CBC WITH DIFF 2021-06-01 01:42:00 Romina Sofia [facility] URINALYSIS 2021-06-01 01:36:00 Romina Sofia [facility] XR CHEST 1 VW 2021-06-01 01:33:54 Romina Sofia [facility] POCT TEST 2021-06-01 01:30:00 Romina Sofia [facility] NOTICE OF PRIVACY 2021-05-31 22:47:35 Doctor Unassigned, No [facility] PRACTICES Name [facility] CONSENT/REFUSAL FOR 2021-05-31 22:47:19 Doctor Unassigned, No [facility] DIAGNOSIS AND TREATMENT Name [facility] D-DIMER 2021-04-12 15:45:00 Divya Ford [facility] XR CHEST 1 VW 2021-04-12 15:26:56 Divya Ford [facility] POCT TEST 2021-04-12 15:01:00 Divya Ford [facility] CREATINE KINASE 2021-04-12 14:47:00 Divya Ford [facility] TROPONIN I 2021-04-12 14:47:00 Divya Ford [facility] HEPATIC FUNCTION PANEL 2021-04-12 14:47:00 Divya Ford [facility] ([id number]) (ALB,T.PRO,BILI Medical Branch T,BU/BC,ALT,AST,ALK PHOS) BASIC METABOLIC PANEL 2021-04-12 14:47:00 Divya Ford [facility] (NA, K, CL, CO2, Medical Branch GLUCOSE, BUN, CREATININE, CA) URINE DRUG (IMMUNOASSAY) 2021-04-12 14:47:00 Divya Ford [facility] - COMPREHENSIVE DRUG Medical [facility] SCREEN CBC WITH DIFF 2021-04-12 14:47:00 Divya Ford [facility] URINALYSIS 2021-04-12 14:47:00 Logan Divya [facility] N-TERMINAL PRO-BNP 2021-04-12 14:47:00 Divya Ford [facility] NOTICE OF PRIVACY 2021-04-12 13:55:32 Doctor Unassigned, No [facility] PRACTICES Name Medical Branch CONSENT/REFUSAL FOR 2021-04-12 13:55:12 [facility] Name Medical Branch AUTHORIZATION FOR 2020-09-19 06:01:00 Doctor Unassigned, No [facility] RELEASE OF PHI Name Medical Branch CONSENT/REFUSAL FOR 2020-09-03 15:31:20 [facility], [facility] Name Medical Branch GA RECMPL WND 2020-08-21 08:47:00 Cristiana Ortiz [facility] HEAD,FAC,HAND 2.6-7.5 CM Medical Branch COVID-19 (ID NOW RAPID 2020-08-21 07:57:00 Cristiana Ortiz [facility] TESTING) Medical Branch XR HAND <3 VW LEFT 2020-08-21 07:43:53 Cristiana Ortiz [facility] Medical [place] XR ANKLE 3+ VW RIGHT 2019-05-25 16:25:16 Nish Feng [facility] CONSENT/REFUSAL FOR 2019-05-25 15:51:51 [facility], [facility] Name [facility] Plan of Care Planned Activity Planned Date Details Comments Source Future Scheduled 2022-06-30 [facility]ITIS B [facility] 11:10:57 VACCINES (1 of 3 - 3-dose series) [code = HEPATITIS B VACCINES (1 of 3 - 3-dose series)] Future Scheduled 2022-06-30 COVID-19 [facility] 11:10:57 (#1) [code = COVID-19 VACCINE (#1)] Future Scheduled 2022-06-30 Hepatitis C [facility] 11:10:57 screening (procedure) [code = 166538082] Future Scheduled 2022-06-30 Screening for [facility] Test 11:10:57 malignant neoplasm of cervix (procedure) [code = 726762604] Future Scheduled 2022-06-30 [facility]ZA [facility]ACCINE [facility] 11:10:57 [code = INFLUENZA VACCINE] Encounters Start End Encounter Admission Attending Care Care Encounter Source Date/Time Date/Time Type Type Clinicians Facility Department ID 2021-10-26 2021-10-26 Emergency X SINGER [facility] ERT [id number] Univers 09:32:00 10:05:00 CRISTIANA cuevas [facility] 2021-10-26 2021-10-26 Emergency Singer [facility] [id number] Univers 09:32:00 10:05:00 Cristiana CAPPS 350.1.13.10 i ty of [place] 4.2.7.2.686 [facility] [id number] [address] 2021-08-13 2021-08-13 [facility] [id number] Univers 07:07:00 14:59:00 Divya Capps 350.1.13.10 i ty of [place] 4.2.7.2.686 [facility] [id number] [address] 2021-08-13 2021-08-13 Emergency [facility] [id number] Univers 07:07:00 07:07:00 DIVYACHRISTIANNE cuevas [facility] 2021-05-31 2021-05-31 Emergency Romina Sofia [facility] [id number] Univers 18:06:00 22:40:00 Dedra Capps 350.1.13.10 i ty of [place] 4.[address] [place] [address] [id number] 2021-05-31 2021-05-31 Emergency X [facility] ERT [id number] Univers 17:47:00 17:47:00 ity of [facility] 2021-04-12 2021-04-12 Emergency [facility] [id number] Univers 09:12:00 11:44:00 Divya Capps 350.1.13.10 i ty of [place] 4.2.7.2.686 [facility] [id number] [address] 2021-04-12 2021-04-12 Emergency [facility] ERT [id number] Univers 09:12:00 11:44:00 DIVYA cuevas [facility] 2021-04-12 2021-04-12 Orders Doctor SANCHEZ [id number] Univers 00:00:00 00:00:00 Only Unassigned, JEAN-PIERRE 350.1.13.10 ity of [facility] 4.2.7.2.686 Kevin as [id number] [address] 2020-09-19 2020-09-19 Orders Doctor SANCHEZ 1.2.840.114 [id number] Univers 00:00:00 00:00:00 Only Unassigned, JEAN-PIERRE 350.1.13.10 ity of [facility] 4.2.7.2.686 Kevin as [id number] [address] 2020-09-03 2020-09-03 Emergency [facility] [id number] Univers 09:46:00 10:17:00 Dhruv Capps 350.1.13.10 i ty of [place] 4.2.7.2.686 [facility] [id number] [address] 2020-09-03 2020-09-03 Emergency [facility]RT [id number] Univers 09:46:00 09:46:00 DHRUV cuevas [facility] 2020-08-21 2020-08-21 Emergency [facility] [id number] Univers 02:22:00 04:07:00 Cristiana Capps 350.1.13.10 i ty of [place] 4.2.7.2.686 [facility] [id number] [address] 2020-08-21 2020-08-21 Emergency X , [facility] ERT [id number] Univers 02:22:00 02:22:00 CRISTIANA ity [facility] 2019-11-08 2019-11-08 Emergency ALO, [facility] [id number] [place] 00:00:00 00:00:00 DANIEL [address] 2019-11-05 2019-11-05 Emergency X CECILIA, [facility] ERT [id number] Univers 15:02:10 17:41:00 FOLUSHO ity [facility] 2019-05-25 2019-05-25 Emergency [facility] [id number] Univers 11:00:44 13:32:00 [facility]ish [facility]13.10 [facility] 4.2.7.2.686 [facility] [id number] [address] 2019-05-25 2019-05-25 Orders Doctor DANIEL 1.2.840.114 [id number] Univers 00:00:00 00:00:00 Only Unassigned, JEAN-PIERRE 350.1.13.10 ity of [place] [facility] 4.2.7.[address] [facility] [id number] [address] Results Test Description Test Time Test Comments Results Result Comments Source FREE T4 2021-08-13 13:58:34 Test Item Value Reference Range Interpretation Comme nts FREE T4 (test code = See_Comment [Autom ated message] The system [id number]) which generated this result transmitted ref erence range: 0.78 - 2.20 ng/dL:. The reference range was not u sed to interpret this result as normal/abnormal. Lab Interpretation (test code = Normal 96217-9) [facility] CenterTHYROID STIMULATING [id number] 13:52:25 Test Item Value Reference Range Interpretation Comments TSH (test code = See_Comment [Automated message] 7418187170) The system whic h generated this result transmitted ref erence range: 0.45 - 4 .70 mIU/L. The refe rence range was not u sed to interpret this result as normal/abnor mal. Lab Interpretation (test Normal code = 37890-2) [facility] CenterACETAMINOPHEN2021-10-16 13:22:51 Test Item Value Reference Range Interpretation Comments ACETAMINOP (test code = <10.0 10.0-30.0 L 8846762727) SWEETIE (test code = SWEETIE) Toxic: Greater than 200 ug/mL @ 4 hour post ingestion or greater than 50 ug/mL @ 12 hour post ingestion Lab Interpretation (test Abnormal code = 50140-7) [facility] CenterETHANOL2021-10-16 13:22:45 Test Item Value Reference Range Interpretation Comments ALCOHOL (test code = 124 mg/dL 1247043452) SWEETIE (test code = SWEETIE) <10 Hwhjmilj65-058 Toxic>100 Depression of ASSEMBLY ASSOCIATE>400 Fatalities Reported [facility] CenterSALICYLATE2021-10-16 13:22:45 Test Item Value Reference Range Interpretation Comments SALICYLATE (test code <10 mg/L = 3446327413) SWEETIE (test code = SWEETIE) Therapeutic Range: ? Analgesic and Antipyretic Use ? 20-100 mg/L ? ? Anti-Inflammatory Use ? 100-250 mg/L Toxic Range: ? Greater than 300 mg/L [facility] CenterCOM. METABOLIC PANEL ([id number])2021-08-13 13:22:05 Test Item Value Reference Range Interpretation Comments NA (test code = 141 mmol/L 135-145 9123182820) K (test code = 4.0 mmol/L 3.5-5.0 6885843833) CL (test code = 107 mmol/L 98-108 0409363778) CO2 TOTAL (test code = 22 mmol/L 23-31 L 0635886584) AGAP (test code = 2-16 5294425057) BUN (test code = 9 mg/dL 7-23 1310844941) GLUCOSE (test code = 103 mg/dL 70-110 2938080201) CREATININE (test code = 0.83 mg/dL 0.50-1.04 6740185326) TOTAL BILI (test code = 0.7 mg/dL 0.1-1.8 6807760362) CALCIUM (test code = 10.0 mg/dL 8.6-10.6 0046508463) T PROTEIN (test code = 8.0 g/dL 6.3-8.2 9186498973) ALBUMIN (test code = 4.9 g/dL 3.5-5.0 6018227772) ALK PHOS (test code = 90 U/L 34-122 3556345710) ALTv (test code = 35 U/L 5-35 1742-6) AST(SGOT) (test code = 30 U/L 13-40 6133320001) eGFR (test code = mL/min/1.73m2 7529558463) SWEETIE (test code = SWEETIE) Association of [...] tests). Lab Interpretation Abnormal (test code = 20227-6) [facility] CenterCREATINE [id number] 13:21:45 Test Item Value Reference Range Interpretation Comments CK (test code = 9905075440) 83 U/L 33-194 Lab Interpretation (test code = Normal 56815-6) [facility] WITH [id number] 13:02:41 Test Item Value Reference Range Interpretation Comments WBC (test code = See_Comment [Automated 6690-2) message] The sy stem which generated this [...] RDW-SD (test code = 40.2 fL 39.0-49.9 57462-2) RDW-CV (test code = 12.4 % 12.0-15.5 788-0) PLT (test code = See_Comment [Automated 777-3) message] The sy stem which generated this result transmitted reference range : 166 - 358 10*3/ ?L. The reference r chela was not used to interpret this result as normal/abnormal . MPV (test code = 10.5 fL 9.5-12.9 69078-9) NRBC/100 WBC (test See_Comment [Automat ed code = 0851951702) message] The system which generated this result transmitted reference range : 0.0 - 10.0 /100 WBCs. The refer ence range was not u sed to interpret th is result as normal/abnormal . NRBC x10^3 (test code <0.01 See_Comment [Auto mated = 7603938144) message] The s ystem which generated this result transmitted reference range : 10*3/?L. The reference range was not used to interpret this result as normal/abnormal . GRAN MAT (NEUT) % 76.9 % (test code = 770-8) IMM GRAN % (test code 0.40 % = 7546058320) LYMPH % (test code = 15.6 % 736-9) MONO % (test code = 6.5 % 5905-5) EOS % (test code = 0.3 % 713-8) BASO % (test code = 0.3 % 706-2) GRAN MAT x10^3(ANC) 5.77 10*3/uL 1.88-7.09 (test code = 4505197020) IMM GRAN x10^3 (test 0.03 10*3/uL 0.00-0.06 code = 2908216483) LYMPH x10^3 (test code 1.17 10*3/uL 1.32-3.29 L = 731-0) MONO x10^3 (test code 0.49 10*3/uL 0.33-0.92 = 742-7) EOS x10^3 (test code = <0.03 0.03-0.39 L 711-2) BASO x10^3 (test code <0.03 0.01-0.07 = 704-7) Lab Interpretation Abnormal (test code = 31930-5) [facility] CenterPOCT [id number] 12:50:00 Test Item Value Reference Range Interpretation Comments POCT PREG (test code = 1605) negative On board controls acceptable with negative C Line (test code = 3574) POCT PREG LOT # (test code = 3575) [id number] POCT PREG TEST DATE (test code = 3576) Lab Interpretation (test code = Normal 59498-4) [facility] CenterCOM. METABOLIC PANEL (40737)2021-06-01 02:03:14 Test Item Value Reference Range Interpretation Comments NA (test code = 137 mmol/L 135-145 8735787978) K (test code = 4.0 mmol/L 3.5-5.0 9048805696) CL (test code = 102 mmol/L 98-108 8512934100) CO2 TOTAL (test code 26 mmol/L 23-31 = 2055325384) AGAP (test code = 2-16 5443740792) BUN (test code = 16 mg/dL 7-23 0107005126) GLUCOSE (test code = 98 mg/dL 70-110 6785163384) CREATININE (test code 0.82 mg/dL 0.50-1.04 = 3857897348) TOTAL BILI (test code 0.4 mg/dL 0.1-1.1 = 1299181488) CALCIUM (test code = 9.8 mg/dL 8.6-10.6 8360625081) T PROTEIN (test code 8.0 g/dL 6.3-8.2 = 4068396184) ALBUMIN (test code = 4.6 g/dL 3.5-5.0 3016338607) ALK PHOS (test code = 80 U/L 34-122 9289278979) ALTv (test code = 18 U/L 5-35 2-6) AST(SGOT) (test code 21 U/L 13-40 = 0875991280) eGFR (test code = mL/min/1.73m2 6241420048) SWEETIE (test code = SWEETIE) Association of [...] or urine or abnormalities in imaging tests). [facility] CenterURINALYSIS2021-08-04 02:02:53 Test Item Value Reference Range Interpretation Comments APPEARANCE (test code = Clear Clear 5948601315) COLOR (test code = Straw Yellow A 1532744128) PH (test code = 4.8-8.0 0435940717) SP GRAVITY (test code = 1.003-1.030 6139086081) GLU U QUAL (test code = Normal Normal 5567787227) BLOOD (test code = Negative Negative 7598423293) KETONES (test code = Negative Negative 6990939690) PROTEIN (test code = Negative Negative 2887-8) UROBILIN (test code = Normal Normal 3131307726) BILIRUBIN (test code = Negative Negative 3042962500) NITRITE (test code = Negative Negative 7429577156) LEUK DANISH (test code = Negative Negative 6243757538) RBC/HPF (test code = See_Comment [Autom ated message] 6164047060) The system [employer] generated this result transmitted ref erence range: 0 - 3 HP F. The reference range was not used to int erpret this result as normal/abnormal . WBC/HPF (test code = See_Comment [Autom ated message] 9545539129) The system [employer] generated this result transmitted ref erence range: 0 - 5 HP F. The reference range was not used to int erpret this result as normal/abnormal . BACTERIA (test code = Negative Negative 1641010192) MUCOUS (test code = Slight Negative LPF A 4422212698) SQ EPITH (test code = HPF 5021877851) Lab Interpretation (test Abnormal code = 42622-7) [facility] CenterLIPASE2021-08-04 02:02:38 Test Item Value Reference Range Interpretation Comments LIPASE (test code = 1775321480) 92 U/L 0-220 Lab Interpretation (test code = Normal 04478-6) [facility] CenterCBC WITH [id number] 01:50:14 Test Item Value Reference Range Interpretation Comments WBC (test code = See_Comment [Automated message] 1690-2) The system [employer] generated this result transmitted ref erence range: 4.30 - 1 1.10 10*3/?L. The re ference range was not u sed to interpret this result as normal/abnor mal. RBC (test code = See_Comment [Automated message] 699-8) The system [employer] generated this result transmitted ref erence range: [...] RDW-SD (test code 39.0 fL 39.0-49.9 = 68373-1) RDW-CV (test code 12.1 % 12.0-15.5 = 788-0) PLT (test code = See_Comment [Automated message] 767-3) The system [employer] generated this result transmitted ref erence range: 166 - 35 8 10*3/?L. The re ference range was not u sed to interpret this result as normal/abnor mal. MPV (test code = 10.3 fL 9.5-12.9 05820-0) NRBC/100 WBC (test See_Comment [Automat ed message] code = 7863758089) The syste [employer] which generated this result transmitted ref erence range: 0.0 - 10 .0 /100 WBCs. The refer ence range was not u sed to interpret this result as normal/abnor mal. NRBC x10^3 (test <0.01 See_Comment [Automated message] code = 3462610520) The syste m which generated this result transmitted ref erence range: 10*3/?L. The reference range was not used to interpr et this result as normal/abnormal . GRAN MAT (NEUT) % 65.9 % (test code = 770-8) IMM GRAN % (test 0.50 % code = 2846221553) LYMPH % (test code 23.8 % = 736-9) MONO % (test code 8.1 % = 5905-5) EOS % (test code = 1.3 % 713-8) BASO % (test code 0.4 % = 706-2) GRAN MAT 5.28 10*3/uL 1.88-7.09 x10^3(ANC) (test code = 2132105185) IMM GRAN x10^3 0.04 10*3/uL 0.00-0.06 (test code = 9664420089) LYMPH x10^3 (test 1.90 10*3/uL 1.32-3.29 code = 731-0) MONO x10^3 (test 0.65 10*3/uL 0.33-0.92 code = 742-7) EOS x10^3 (test 0.10 10*3/uL 0.03-0.39 code = 711-2) BASO x10^3 (test 0.03 10*3/uL 0.01-0.07 code = 704-7) [facility] CenterPOCT [id number] 01:30:00 Test Item Value Reference Range Interpretation Comments POCT PREG (test code = 1605) negative On board controls acceptable with present C Line (test code = 3574) POCT PREG LOT # (test code = 3575) [id number] POCT PREG TEST DATE (test 10/28/2022 code = 3576) Lab Interpretation (test code = Normal 50987-9) [facility] CenterD-[id number] 16:10:51 Test Item Value Reference Interpretation Comments Range D-DIMER (test code = See_Comment [Autom ated 6605933684) message] The system which generated this result [...] diagnosis. Lab Interpretation Normal (test code = 37459-5) [facility] CenterUrinalysis2021-06-15 15:44:39 Test Item Value Reference Range Interpretation Comments APPEARANCE (test code = Hazy Clear A 5401057302) COLOR (test code = Yellow Yellow 7870556775) PH (test code = 4.8-8.0 2768655886) SP GRAVITY (test code = 1.003-1.030 0131911881) GLU U QUAL (test code = Normal Normal 5156715049) BLOOD (test code = Negative Negative 6939620428) KETONES (test code = Negative Negative 4285806122) PROTEIN (test code = Negative Negative 2887-8) UROBILIN (test code = Normal Normal 0243727066) BILIRUBIN (test code = Negative Negative 0472166585) NITRITE (test code = Negative Negative 8251594512) LEUK DANISH (test code = Negative Negative 7538617782) RBC/HPF (test code = See_Comment [Autom ated message] 9760918322) The system [employer] generated this result transmitted ref erence range: 0 - 3 HP F. The reference range was not used to int erpret this result as normal/abnormal . WBC/HPF (test code = See_Comment [Autom ated message] 8594691245) The system [employer] generated this result transmitted ref erence range: 0 - 5 HP F. The reference range was not used to int erpret this result as normal/abnormal . BACTERIA (test code = Few Negative A 9480267263) MUCOUS (test code = Slight Negative LPF A 5160686571) SQ EPITH (test code = HPF 1328442767) HYAL CAST (test code = See_Comment [Aut omated message] 8209042172) The system [employer] generated this result transmitted ref erence range: <=2 LPF. The reference range was not used to int erpret this result as normal/abnormal . Lab Interpretation (test Abnormal code = 01123-8) [facility] CenterURINE DRUG (IMMUNOASSAY) - COMPREHENSIVE DRUG [id number] 15:39:38 Test Item Value Reference Range Interpretation Comments AMPHET (test code = Negative Negative 4286851880) LOU U (test code = Negative Negative 4638117389) BENZO U (test code = Negative Negative 5566746485) Cocaine Metabolite (test Negative Negative code = 8436389569) METHADONE (test code = Negative Negative 8602763140) OPIATES (test code = Negative Negative 0255588881) PCP (test code = Negative Negative 2047028454) THC (test code = Negative Negative 7996815062) SWEETIE (test code = SWEETIE) Urine Drug [...] testing). Lab Interpretation (test Normal code = 39744-6) [facility] CenterTroponin [id number] 15:30:23 Test Item Value Reference Range Interpretation Comments TROPONIN I (test 0.002 ng/mL See_Comment [Automated code = 4967868591) message] The system which generated this result [...] ? Lab Interpretation Normal (test code = 66451-2) [facility] CenterXR CHEST 1 [id number] 15:30:10EXAM: XR CHEST 1 VW HISTORY: chest pain COMPARISON: None. FINDINGS: The heart and great vessels are normal and the lungs are well expanded andclear. ? [facility], Radiant Results Inft User - 04/12/2021 10:31AM CDT EXAM: XR CHEST 1 VWHISTORY: chestpain COMPARISON: None.FINDINGS:The heart and great vessels are normal and the lungs are well expanded andclear.[facility] CenterN-TERMINAL [id number] 15:27:06 Test Item Value Reference Range Interpretation Comments NT-proBNP (test code 84 pg/mL See_Comment [Autom ated = 5005330700) message] The system which generated this result transmitted reference range : <=125. The reference range was not used to interpret this result as normal/abnormal . SWEETIE (test code = SWEETIE) Biotin has been reported to cause a negative bias, interpret results relative to patient's use of biotin. Lab Interpretation Normal (test code = 31089-0) [facility] CenterBasic Metabolic Panel (NA, K, CL, CO2, GLUCOSE, BUN, CREATININE, CA)2021-04-12 15:18:22 Test Item Value Reference Range Interpretation Comments NA (test code = 139 mmol/L 135-145 9042395911) K (test code = 3.8 mmol/L 3.5-5.0 4226067795) CL (test code = 103 mmol/L 98-108 5785581043) CO2 TOTAL (test code 26 mmol/L 23-31 = 4775965230) AGAP (test code = 2-16 5773703805) BUN (test code = 11 mg/dL 7-23 6733578762) GLUCOSE (test code = 88 mg/dL 70-110 2412478346) CREATININE (test code 0.75 mg/dL 0.50-1.04 = 9973274010) CALCIUM (test code = 9.6 mg/dL 8.6-10.6 9252115142) eGFR (test code = mL/min/1.73m2 8749485615) SWEETIE (test code = SWEETIE) Association of [...] or urine or abnormalities in imaging tests). [facility] CenterHepatic Function Panel (ALB, T.PRO, BILI T, BU/BC, ALT, AST, ALK PHOS)2021-04-12 15:18:22 Test Item Value Reference Range Interpretation Comments TOTAL BILI (test code = 6881708545) 0.5 mg/dL 0.1-1.1 BILI UNCON (test code = 9940882913) 0.3 mg/dL 0.1-1.1 BILI CONJ (test code = 0986732326) 0.0 mg/dL 0.0-0.3 T PROTEIN (test code = 9687014709) 7.3 g/dL 6.3-8.2 ALBUMIN (test code = 9241492865) 4.4 g/dL 3.5-5.0 ALK PHOS (test code = 1650837064) 73 U/L 34-122 ALTv (test code = 1742-6) 20 U/L 5-35 AST(SGOT) (test code = 3568725258) 34 U/L 13-40 Lab Interpretation (test code = Normal 71152-8) [facility] CenterCREATINE [id number] 15:18:22 Test Item Value Reference Range Interpretation Comments CK (test code = 0928179530) 70 U/L 33-194 Lab Interpretation (test code = Normal 57536-1) [facility] CenterCB with [id number] 15:04:44 Test Item Value Reference Range Interpretation Comments WBC (test code = See_Comment [Automated 1790-2) message] The sy stem which generated this result transmitted reference range : 4.30 - 11.10 10*3/?L. The reference range was not used to interpret this result as normal/abnormal . RBC (test code = See_Comment [Automated 274-8) message] The sy stem which generated this [...] RDW-SD (test code = 41.2 fL 39.0-49.9 20789-3) RDW-CV (test code = 12.5 % 12.0-15.5 788-0) PLT (test code = See_Comment [Automated 777-3) message] The sy stem which generated this result transmitted reference range : 166 - 358 10*3/ ?L. The reference r chela was not used to interpret this result as normal/abnormal . MPV (test code = 10.8 fL 9.5-12.9 91247-7) NRBC/100 WBC (test See_Comment [Automat ed code = 9383738826) message] The system which generated this result transmitted reference range : 0.0 - 10.0 /100 WBCs. The refer ence range was not u sed to interpret th is result as normal/abnormal . NRBC x10^3 (test code <0.01 See_Comment [Auto mated = 1105893467) message] The s ystem which generated this result transmitted reference range : 10*3/?L. The reference range was not used to interpret this result as normal/abnormal . GRAN MAT (NEUT) % 71.4 % (test code = 770-8) IMM GRAN % (test code 0.40 % = 2053332353) LYMPH % (test code = 17.3 % 736-9) MONO % (test code = 8.5 % 5905-5) EOS % (test code = 1.8 % 713-8) BASO % (test code = 0.6 % 706-2) GRAN MAT x10^3(ANC) 3.51 10*3/uL 1.88-7.09 (test code = 9701524277) IMM GRAN x10^3 (test <0.03 0.00-0.06 code = 2607243560) LYMPH x10^3 (test code 0.85 10*3/uL 1.32-3.29 L = 731-0) MONO x10^3 (test code 0.42 10*3/uL 0.33-0.92 = 742-7) EOS x10^3 (test code = 0.09 10*3/uL 0.03-0.39 711-2) BASO x10^3 (test code 0.03 10*3/uL 0.01-0.07 = 704-7) Lab Interpretation Abnormal (test code = 64985-0) [facility] CenterPOCT [id number] 15:01:00 Test Item Value Reference Range Interpretation Comments POCT PREG (test code = 1605) negative On board controls acceptable with present C Line (test code = 3574) POCT PREG LOT # (test code = 3575) [id number] POCT PREG TEST DATE (test 09/27/2022 code = 3576) Lab Interpretation (test code = Normal 53311-9) [facility] CenterLaceration [id number] 08:47:00Cristiana Ortiz, DO ? ? 08/21/2020 ?3:49 AMLaceration RepairPerformed by: Cristiana Ortiz DOAuthorized by: Cristiana Ortiz DO Consent: ?Consent obtained: ?Verbal ?Consent given by: ?Patient ?Risks discussed: ?Infection, need for additional repair, poor cosmetic result, pain and poor wound healing ?Al ternatives discussed: ?No treatmentAnesthesia (see MAR for exact dosages): ?Anesthesia method: ?Local infiltration ?Local anesthetic: ?Lidocaine 1% w/o epiLaceration details: ?Location: ?Finger ?Fingerlocation: ?L thumb ?Length (cm): ?3 ?Depth (mm): ?5Repair type: ?Repair type: ?ComplexPre-procedure d etails: ?Preparation: ?Imaging obtained to evaluate for foreign bodiesExploration: ?Hemostasis achieved with: ?Tourniquet ?Wound exploration: wound explored through full range of motion ? ?Wound extent: underlying fracture ? ?Wound extent: no muscle damage noted, no nerve damage noted, no tendon damage noted and no vascular damage noted ? ?Contaminated: no ?Treatment: ?Area cleansed with: ?Hibiclens ?Amount of cleaning: ?Extensive ?Debridement: ?Minimal ?Undermining: ?Minimal ?Scar revision: yes ?Skin repair: ?Repair method: ?Sutures ?Suture size: ?5-0 ?Suture material: ?Prolene ?Suture technique:?Simple interrupted ?Number of sutures: ?7Approximation: ?Approximation: ?ClosePost- procedure details: ?Dressing: ?Antibiotic ointment and splint for protection ?Patient tolerance of procedure: ?Tolerated well, no immediate complicationsComments: ? 1 nailbed laceration and substitute nail placed and re tention sutures placed. See photo.[facility] ([facility] NOW RAPID TESTING)2020-08-21 08:34:00 Test Item Value Reference Range Interpretation Comments SARS-CoV-2 Rapid ID NOW Not Detected Not Detected (test code = 96316-8) SWEETIE (test code = SWEETIE) ID NOW COVID-19 Assay is an isothermal nucleic acid amplification test intended for the qualitative detection of nucleic acid from SARS-CoV-2 viral RNA in nasopharyngeal (HOROLOGIST) specimens. It is used under Emergency Use [...] indicated. Lab Interpretation Normal (test code = 07354-4) [facility]
[2022-07-11] MEDS ORDERED: LIDOCAINE VISCOUS 2% SOLN 15 ML UDC ONE (14:53)
[2022-07-11] MEDS ORDERED: MAGNES/ALUMIN/SIMET 30ML UCUP ONE (14:53)
--- NOTE | 2022-07-11 15:18 | EDPHYS ---
Physician Documentation [facility] Name: Genet Webb Age: 27 yrs Sex: Female : 1995 Arrival Date: 07/11/2022 Time: 11:28 Bed 12 Private MD: ED Physician Aneudy Reyes HPI: 07/11 15:27 This 27 yrs old Female presents to ER via Ambulatory with complaints of Difficulty snw Swallowing. 15:27 The patient describes throat pain as feels like something is stuck, no choking, no snw vomiting. Onset: The symptoms/episode began/occurred suddenly, 3 day(s) ago, and became persistent. Severity of symptoms: At their worst the symptoms were moderate. Associated signs and symptoms: The patient has no apparent associated signs or symptoms. The patient has not experienced similar symptoms in the past. The patient has not recently seen a physician. 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 - Social history:: Smoking status: Patient denies any tobacco usage or history of. ROS: 15:19 Constitutional: Negative for fever, chills, and weight loss, Eyes: Negative for injury, snw pain, redness, and discharge, Neck: Negative for injury, pain, and swelling, Cardiovascular: Negative for chest pain, palpitations, and edema, Respiratory: Negative for shortness of breath, cough, wheezing, and pleuritic chest pain, Abdomen/GI: Negative for abdominal pain, nausea, vomiting, diarrhea, and constipation, Back: Negative for injury and pain, : Negative for injury, bleeding, discharge, and swelling, MS/Extremity: Negative for injury and deformity, Skin: Negative for injury, rash, and discoloration, Neuro: Negative for headache, weakness, numbness, tingling, and seizure, Psych: Negative for depression, anxiety, suicide ideation, homicidal ideation, and hallucinations. 15:19 ENT: Positive for feeling like something is stuck in her esophagus. Exam: 14:29 Constitutional: This is a well developed, well nourished patient who is awake, alert, snw and in no acute distress. Head/Face: Normocephalic, atraumatic. Eyes: Pupils equal round and reactive to light, extra-ocular motions intact. Lids and lashes normal. Conjunctiva and sclera are non-icteric and not injected. Cornea within normal limits. Periorbital areas with no swelling, redness, or edema. ENT: Nares patent. No nasal discharge, no septal abnormalities noted. Tympanic membranes are normal and external auditory canals are clear. Oropharynx with no redness, swelling, or masses, exudates, or evidence of obstruction, uvula midline. Mucous membranes moist. Neck: Trachea midline, no thyromegaly or masses palpated, and no cervical lymphadenopathy. Supple, full range of motion without nuchal rigidity, or vertebral point tenderness. No Meningismus. Chest/axilla: Normal chest wall appearance and motion. Nontender with no deformity. No lesions are appreciated. Cardiovascular: Regular rate and rhythm with a normal S1 and S2. No gallops, murmurs, or rubs. Normal PMI, no JVD. No pulse deficits. Respiratory: Lungs have equal breath sounds bilaterally, clear to auscultation and percussion. No rales, rhonchi or wheezes noted. No increased work of breathing, no retractions or nasal flaring. Abdomen/GI: Soft, non-tender, with normal bowel sounds. No distension or tympany. No guarding or rebound. No evidence of tenderness throughout. Back: No spinal tenderness. No costovertebral tenderness. Full range of motion. Skin: Warm, dry with normal turgor. Normal color with no rashes, no lesions, and no evidence of cellulitis. MS/ Extremity: Pulses equal, no cyanosis. Neurovascular intact. Full, normal range of motion. Neuro: Awake and alert, GCS 15, oriented to person, place, time, and situation. Cranial nerves II-XII grossly intact. Motor strength 5/5 in all extremities. Sensory grossly intact. Cerebellar exam normal. Normal gait. Psych: Awake, alert, with orientation to person, place and time. Behavior, mood, and affect are within normal limits. Vital Signs: 12:43 BP 135 / 86; Pulse 74; Resp 16; Temp 98.7(TE); Pulse Ox 100% on R/A; Weight 107.95 kg bm7 (R); Height 5 ft. 6 in. (167.64 cm); Pain 0/10; 13:30 BP 136 / 84; Pulse 72; Resp 14 S; Pulse Ox 97% on R/A; jg9 14:30 BP 128 / 72; Pulse 86; Resp 16 S; Pulse Ox 98% on R/A; jg9 12:43 Body Mass Index 38.41 (107.95 kg, 167.64 cm) bm7 MDM: 13:58 Patient medically screened. janelle 14:29 Data reviewed: vital signs, nurses notes. Data interpreted: Pulse oximetry: on room air snw is 100 %. Interpretation: normal. Counseling: I had a detailed discussion with the patient and/or guardian regarding: the historical points, exam findings, and any diagnostic results supporting the discharge/admit diagnosis, the presence of at least one elevated blood pressure reading (>120/80) during this emergency department visit, lab results, the need for outpatient follow up, to return to the emergency department if symptoms worsen or persist or if there are any questions or concerns that arise at home. Special discussion: Based on the history and exam findings, there is no indication for further emergent testing or inpatient evaluation. 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 I discussed with the patient/guardian the need to see the primary care provider for further evaluation of the symptoms. 15:18 Response to treatment: the patient's symptoms have markedly improved after treatment. snw 07/11 12:48 Order name: Strep; Complete Time: 13:25 bm7 07/11 12:48 Order name: SARS-COV-2 RT PCR (Document "Date of Onset" if Symptomatic); Complete Time: bm7 14:28 07/11 12:48 Order name: Flu; Complete Time: 13:25 bm7 07/11 13:27 Order name: Throat Culture EDMS Administered Medications: 14:51 Drug: GI Cocktail without - (Maalox Suspension 30 ml, Lidocaine Liquid 2 % 15 jg9 ml) Route: PO; 15:20 Follow up: Response: No adverse reaction; Pain is decreased jg9 Disposition Summary: 07/11/22 15:18 Discharge Ordered Location: Home snw Condition: Stable snw Diagnosis - Esophagitis, unspecified snw Followup: snw - With: Emergency Department - When: As needed - Reason: Worsening of condition Followup: snw - With: Private Physician - When: 2 - 3 days - Reason: Recheck today's complaints, Continuance of care, Re-evaluation by your physician Discharge Instructions: - Discharge Summary Sheet snw - Esophagitis snw Forms: - Medication Reconciliation Form snw - Thank You Letter snw - Antibiotic Education snw - Prescription Opioid Use snw - Work release form jg9 Prescriptions: - Pepcid 20 mg Oral Tablet - take 1 tablet by ORAL route every 12 hours for 5 days; 10 tablet; Refills: 0, snw Product Selection Permitted - Zyrtec 10 mg Oral Tablet - take 1 tablet by ORAL route once daily As needed; 20 tablet; Refills: 0, snw Product Selection Permitted Signatures: Dispatcher [employer] EDMS Aneudy Reyes MD MD cha Waters, Shelly, SMALL KICK PRESS OPERATOR-C SMALL KICK PRESS OPERATOR-Csnw Luo Oro, RN RN bm7 Karina Hammer, RN RN jg9
--- NOTE | 2022-07-11 15:18 | ER ---
Nurse's Notes [facility] Name: Genet Webb Age: 27 yrs Sex: Female : 1995 Arrival Date: 07/11/2022 Time: 11:28 Bed 12 Private MD: Diagnosis: Esophagitis, unspecified Presentation: 07/11 12:37 Chief complaint: Patient states: I started coughing and I feel like I have something bm7 stuck in the back of my throat. I have been coughing up nasty stuff. Coronavirus screen: Client presents with at least one sign or symptom that may indicate coronavirus-19. Ebola Screen: No symptoms or risks identified at this time. Initial Sepsis Screen: Does the patient meet any 2 criteria? No. Patient's initial sepsis screen is negative. Does the patient have a suspected source of infection? No. Patient's initial sepsis screen is negative. Risk Assessment: Do you want to hurt yourself or someone else? Patient reports no desire to harm self or others. Onset of symptoms is unknown. 12:37 Method Of Arrival: Ambulatory 7 12:37 Acuity: KETURAH 4 bm7 Triage Assessment: 12:38 General: Appears in no apparent distress. comfortable, Behavior is calm, cooperative, bm7 appropriate for age. Pain: Complains of pain in throat. EENT: No deficits noted. No signs and/or symptoms were reported regarding the EENT system. EENT: Oral mucosa is moist. Throat is reddened. Neuro: No deficits noted. Cardiovascular: No deficits noted. Respiratory: Airway is patent Respiratory effort is even, unlabored, Respiratory pattern is regular, symmetrical, Breath sounds are clear bilaterally. GI: No deficits noted. No signs and/or symptoms were reported involving the gastrointestinal system. : No deficits noted. No signs and/or symptoms were reported regarding the genitourinary system. Derm: No deficits noted. No signs and/or symptoms reported regarding the dermatologic system. Musculoskeletal: No deficits noted. No signs and/or symptoms reported regarding the musculoskeletal system. 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 - Social history:: Smoking status: Patient denies any tobacco usage or history of. Screenin:20 Abuse screen: Denies threats or abuse. Denies injuries from another. Nutritional jg9 screening: No deficits noted. Tuberculosis screening: No symptoms or risk factors identified. Fall Risk None identified. Vital Signs: 12:43 BP 135 / 86; Pulse 74; Resp 16; Temp 98.7(TE); Pulse Ox 100% on R/A; Weight 107.95 kg bm7 (R); Height 5 ft. 6 in. (167.64 cm); Pain 0/10; 13:30 BP 136 / 84; Pulse 72; Resp 14 S; Pulse Ox 97% on R/A; jg9 14:30 BP 128 / 72; Pulse 86; Resp 16 S; Pulse Ox 98% on R/A; jg9 12:43 Body Mass Index 38.41 (107.95 kg, 167.64 cm) bm7 ED Course: 11:28 Patient arrived in ED. rg4 12:38 Triage completed. bm7 12:38 Arm band placed on right wrist. bm7 12:54 Lenka Branham FNP-C is [facility]. snw 12:54 Aneudy Reyes MD is Attending Physician. snw 14:20 Karina Hammer, RN is Primary Nurse. jg9 14:20 Patient has correct armband on for positive identification. Bed in low position. Call jg9 light in reach. Side rails up X 1. 15:21 No provider procedures requiring assistance completed. jg9 15:21 Patient did not have IV access during this emergency room visit. jg9 Administered Medications: 14:51 Drug: GI Cocktail without - (Maalox Suspension 30 ml, Lidocaine Liquid 2 % 15 jg9 ml) Route: PO; 15:20 Follow up: Response: No adverse reaction; Pain is decreased jg9 Medication: 15:21 VIS not applicable for this client. jg9 Outcome: 15:18 Discharge ordered by . snw 15:21 Condition: stable jg9 15:55 Discharged to home ambulatory. jg9 15:55 Discharge instructions given to patient, Instructed on discharge instructions, follow up and referral plans. Demonstrated understanding of instructions, follow-up care, Prescriptions given X 2. 15:55 Patient left the ED. jg9 Signatures: Lenka Branham, LAUNDRY PRESS OPERATOR-C LAUNDRY PRESS OPERATOR-[place] rg4 oLu Oro, RN RN bm7 Karina Hammer RN RN jg9
[2022-07-11 22:34] VITALS: TEMP 98.7
[2022-07-11 22:51] VITALS: BP 128/72; O2SAT 98
== END 2022-07-11 15:55 | disposition home or self-care (01) ==
LOC: ER 11:24
DX: K20.90 Esophagitis, unspecified without bleeding (principal); Z20.822 Contact with and (suspected) exposure to COVID-19
CPT/HCPCS: 87070; 87081; 87804 ×2; U0003; 99283

== ENCOUNTER 2024-10-09 15:08 | Emergency (ER) | payer OTHER ==
--- NOTE | 2024-10-09 15:44 | RAD REPORT ---
EXAM: CT brain without contrast HISTORY: STROKE ALERT COMPARISON: None TECHNIQUE: Multiple contiguous axial images were obtained and a CT of the brain without contrast. Sag ittal and coronal reformats were performed. One or more of the following dose reduction techniques were used: Automated exposure control, adjust ment of the mA and/or kV according to patient size, and/or iterative reconstruction. FINDINGS: No evidence of hydrocephalus, intracranial hemorrhage, or extra-axial fluid collection. The brain is normal in morphology. No evidence of midline shift or areas of brain edema. The calvarium is intact. The visualized paranasal sinuses and mastoid air cells are essentially clear . IMPRESSION: No evidence of acute intracranial abnormality. The findings were communicated with Aneudy Reyes MD at 10/09/2024 3:39 PM by text message.
[2024-10-09] MEDS ORDERED: FOLIC ACID 5 MG/ML VIAL ONE (15:46)
[2024-10-09] MEDS ORDERED: NA CHLORIDE 0.9% 1,000 ML ONE (15:46)
--- NOTE | 2024-10-09 15:50 | RAD REPORT ---
EXAMINATION: CTA HEAD CLINICAL INDICATION: Numbness;TIA TECHNIQUE: Axial CT images were obtained through the head after intravenous contrast utilizing angiog raphic protocol with 3D post-processing (maximum intensity projection images, volume rendered images and/or shaded surface rendered images). One or more of the following dose reduction technique s were used: Automated exposure control, adjustment of the mA and/or kV according to patient size, and/or iterative reconstruction. Unless otherwise specified, incidental findings do not require dedic ated imaging follow-up. COMPARISON: No prior exam. FINDINGS: ICA: The petrous, cavernous, and supraclinoid segments of the bilateral internal carotid arteries are normal. The ophthalmic artery origins are visualized and normal. The posterior communicating arteries are patent. BETITO: Anterior cerebral arteries are normal bilaterally. The anterior communicating artery is patent. MCA: Middle cerebral arteries are normal bilaterally. MAINSPRING WINDER AND OILER: Posterior cerebral arteries are normal bilaterally. Vertebrobasilar: The vertebral arteries are patent. The basilar artery is normal in appearance. 3D images confirm these findings. IMPRESSION: No significant flow abnormality is identified.
[2024-10-09] MEDS ORDERED: TENECTEPLASE 50 MG/10 ML VIAL IV ONE (15:54)
--- NOTE | 2024-10-09 15:55 | RAD REPORT ---
EXAMINATION: CTA NECK CLINICAL INDICATION: PAIN TECHNIQUE: Axial CT images were obtained from the aortic arch to the skull base after intravenous con trast utilizing angiographic protocol with 3D post-processing (maximum intensity projection images, volume rendered images and/or shaded surface rendered images). One or more of the following dose redu ction techniques were used: Automated exposure control, adjustment of the mA and/or kV according to patient size, and/or iterative reconstruction. Unless otherwise specified, incidental findings do not require dedicated imaging follow-up. COMPARISON: No prior exam. FINDINGS: AORTA: The imaged aortic arch is normal. CCA: The common carotid arteries are patent and normal in caliber. ICA/ECA: Bilateral internal and external carotid arteries are patent. There is no significant interna l carotid artery stenosis. VERTEBRAL: The cervical vertebral arteries are patent. The vertebral arteries are codominant. SOFT TISSUE: No significant neck soft tissue abnormalities. The visualized lung apices are clear. 3D images confirm these findings. IMPRESSION: No significant flow abnormality of the neck vessels is identified. NASCET criteria used. Mild 0-49% stenosis Moderate 50-69% stenosis Severe 70-99% stenosis
[2024-10-09 15:59] LABS: Absolute Lymphocytes (CBC) 1.4 K/uL (0.7-4.9); Absolute Monocytes 0.6 K/uL (0.1-1.3); Absolute Neutrophil 4.4 K/uL (1.8-8.0); Basophils % 0.2 % (0-1.3); Eosinophils % 0.2 % (0-4.4); Hematocrit 32.4 % (36.0-45.0); Hemoglobin 11.3 g/dL (12.0-15.0); Lymphocytes % 21.2 % (15.3-44.8); MCH 31.4 pg (27.0-35.0); MCHC 34.8 g/dL (32.0-36.0); MCV 90.2 fL (80-100); MPV 8.3 fL (7.6-11.3); Monocytes % 8.7 % (3.3-12.3); Neutrophils % 69.7 % (41.7-73.7); Platelets 221 thou/uL (152-406); Red Cell Distribution Width 12.8 % (12.1-15.2)
[2024-10-09 16:01] LABS: PT Prothrombin Time 13.3 SECONDS (9.4-12.5); Protime INR 1.19
[2024-10-09 16:16] LABS: Albumin 3.3 g/dL (3.4-5.0); Albumin/Globulin Ratio 1.1 (1.1-1.8); Anion Gap 8.3 mEq/L (5.0-15.0); Bilirubin Direct 0.2 mg/dL (0-0.2); Bilirubin Indirect, Calculated 0.3 mg/dL (0.2-0.8); Bilirubin Total 0.5 mg/dL (0.2-1.0); C-Reactive Protein 5.46 mg/L (<3.00); Magnesium 1.9 mg/dL (1.6-2.4); Potassium 3.3 mEq/L (3.5-5.1); Protein, Total 6.3 g/dL (6.4-8.2); Troponin High Sensitivity 3.3 pg/mL (<58.9)
--- NOTE | 2024-10-09 16:19 | ER ---
Nurse's Notes [facility] Name: Genet Webb Age: 29 yrs Sex: Female : 1995 Arrival Date: 10/09/2024 Time: 15:08 Bed 4 Private MD: Diagnosis: Aphasia;Cerebral infarction, unspecified-rightarm and right leg numbness, right lower facial numbness;Hypokalemia Presentation: 10/09 15:14 Acuity: KETURAH 2 aa5 15:14 Coronavirus screen: congestion, cough unrelated to allergies. Ebola Screen: Patient aa5 denies travel to an Ebola-affected area in the 21 days before illness onset. Initial Sepsis Screen: Does the patient meet any 2 criteria? No. Patient's initial sepsis screen is negative. Does the patient have a suspected source of infection? No. Patient's initial sepsis screen is negative. Onset of symptoms was October 09, 2024. 15:14 Method Of Arrival: EMS: [facility] aa 15:14 Risk Assessment: Do you want to hurt yourself or someone else? Patient reports no aa5 desire to harm self or others. 15:14 Care prior to arrival: IV initiated. in the right antecubital area. aa5 15:14 Chief complaint: Patient states: was driving back home at 1300 when she started "not aa5 feeling right", reports started having difficulty speaking and right arm weakness. Reports cough/congestion and fatigue x 2-3 days ago. 15:14 An acute neurological deficit is present. Pre-hospital glucose is not applicable to aa5 this patient. Triage Assessment: 15:14 The onset of the patients symptoms was October 09, 2024 at 13:00. aa5 Stroke Activation: Symptom onset < 3 hours Physician: ED Attending; Name: ; Notified At: ; Arrived At: Physician: Mid-Level Provider; Name: ; Notified At: ; Arrived At: Physician: [not used]; Name: ; Notified At: ; Arrived At: Physician: [not used]; Name: ; Notified At: ; Arrived At: Physician: [not used]; Name: ; Notified At: ; Arrived At: Historical: - Allergies: 15:14 No Known Allergies; aa5 - PMHx: 15:14 Anxiety; Depressive disorder; ADHD; aa5 - Immunization history:: Adult Immunizations up to date. - Infectious Disease History:: Denies. - Family history:: not pertinent. - Social history:: Smoking status: Patient denies any tobacco usage or history of. Screenin:14 [facility] ED Fall Risk Assessment (Adult) History of falling in the last 3 months, aa5 including since admission No falls in past 3 months (0 pts) Confusion or Disorientation No (0 pts) Intoxicated or Sedated No (0 pts) Impaired Gait No (0 pts) Mobility Assist Device Used No (0 pt) Altered Elimination No (0 pt) Score/Fall Risk Level 0 - 2 = Low Risk Oriented to surroundings, Maintained a safe environment, Educated pt \\T\\ family on fall prevention, incl call for assistance when getting out of bed. Abuse screen: Denies threats or abuse. Nutritional screening: No deficits noted. Tuberculosis screening: No symptoms or risk factors identified. Assessment: 15:14 General: Appears comfortable, Behavior is calm, cooperative, Reports fatigue for 2-3 aa5 days. Pain: Complains of pain in right shoulder and right arm Quality of pain is described as numb. Neuro: Level of Consciousness is awake, alert, obeys commands, Oriented to person, place, time, situation, Weather Anchor are equal bilaterally Moves all extremities. Full function in bilateral hand(s) arm(s) leg(s) foot/feet Speech pt reports difficulty speaking and difficulty "opening mouth all the way" . Facial symmetry appears normal, Reports numbness in right arm. Cardiovascular: Heart tones S1 S2 present Rhythm is regular. Respiratory: Airway is patent Respiratory effort is even, unlabored, Respiratory pattern is regular, symmetrical. GI: No signs and/or symptoms were reported involving the gastrointestinal system. : No signs and/or symptoms were reported regarding the genitourinary system. EENT: Reports nasal congestion. Derm: Skin is pink, warm \\T\\ dry. Musculoskeletal: Range of motion: intact in all extremities. 15:14 VAN Scoring: Arm Drift: Patients demonstrates NO arm weakness. Patient is VAN Negative. aa5 Visual Disturbance: No visual disturbance noted. Aphasia: No aphasia noted. Neglect: No neglect noted. 15:28 Reassessment: Pt to CT accompanied by me . aa5 15:35 Reassessment: Pt back from CT scan, accompanied by me. . aa5 15:45 Reassessment: Pt back from CT scan . aa5 15:50 TNKase (Tenecteplase) Screening: Indications: No evidence of intracranial hemorrhage or aa5 CT of head and no evidence of peripheral hemorrhage or recent CVA: Yes. Consent for thrombolytic therapy: Yes. 15:58 Reassessment: Patient is alert, oriented x 3, equal unlabored respirations, skin aa5 warm/dry/pink. 16:00 [place] Swallow Protocol Exclusion Criteria: Unable to remain alert for testing: No NPO aa5 for medical/surgical reason by provider order No Tracheostomy tube present No No thin liquids due to preexisting dysphagia/baseline modified diet thickened liquids No Exclusion Criteria Result: Proceed Brief Cognitive Screen What is your name? Normal, Where are you right now? Normal, What year is it? Normal. Oral Mechanism Examination Facial Symmetry: Normal, Motion: Normal, Lip Closure: Normal, Oral Mechanism Result: Normal. 3 oz Water Swallow Challenge: Pt able to drink all water without stopping, coughing, choking or throat clearing: Yes Result: PASS MD Notified: Aneudy Reyes MD. 16:13 Reassessment: Patient is alert, oriented x 3, equal unlabored respirations, skin aa5 warm/dry/pink. 16:48 Reassessment: Report given to FRANCA Ortiz at [facility] ER. . aa5 17:28 Reassessment: See paper chart for complete VS and NIH documentation. . aa5 17:38 Reassessment: Patient is alert, oriented x 3, equal unlabored respirations, skin aa5 warm/dry/pink. Vital Signs: 15:14 BP 130 / 81; Pulse 90; Resp 18 S; Temp 98.4(O); Pulse Ox 100% on R/A; Weight 104.33 kg aa5 (R); Height 5 ft. 6 in. (R); 15:40 BP 134 / 96; Pulse 78; Resp 18 S; Pulse Ox 100% on R/A; aa5 15:50 Weight 104.33 kg (M); aa5 16:13 BP 133 / 86; Pulse 78; Resp 16 S; Pulse Ox 98% on R/A; aa5 16:43 BP 132 / 96; Pulse 80; Resp 16 S; Pulse Ox 99% on R/A; aa5 17:28 BP 140 / 91; Pulse 73; Resp 18 S; Pulse Ox 99% on R/A; aa5 15:14 Body Mass Index 37.12 (104.33 kg, 167.64 cm) aa5 NIH Stroke Scale Scores: 16:13 NIHSS Score: 1 aa5 16:18 NIHSS Score: 3 janelle 16:36 NIHSS Score: 1 aa5 17:38 NIHSS Score: 1 aa5 ED Course: 15:14 Patient arrived in ED. ko1 15:14 Arm band placed on Patient placed in an exam room, on a stretcher. aa5 15:14 Patient has correct armband on for positive identification. Placed in gown. Bed in low aa5 position. Call light in reach. Side rails up X2. Client placed on continuous cardiac and pulse oximetry monitoring. NIBP monitoring applied. case monitor on. Pulse ox on. NIBP on. 15:15 Beth Pope, FRANCA is Primary Nurse. aa5 15:18 Aneudy Mcclain PA is PHCP. cp 15:18 Jerod Gamez MD is Attending Physician. cp 15:19 Aneudy Reyes MD is Attending Physician. cp 15:30 Maintain EMS IV. Gauge \\T\\ site: 20G to R AC. aa5 15:34 Triage completed. aa5 15:40 CT Stroke Brain w/o Contrast In Process Unspecified. EDMS 15:41 CT Head Angio In Process Unspecified. EDMS 15:41 CT Neck Angio In Process Unspecified. EDMS 15:45 Initial lab(s) drawn, by me, sent to lab. aa5 16:07 XRAY Chest (1 view) In Process Unspecified. EDMS 16:20 initiated transfer with shankar at [facility]. bc6 16:25 doc to doc for the ER. bc6 17:13 Rodriguez with [facility] accepted transfer. bc6 17:38 No provider procedures requiring assistance completed. Patient transferred, IV remains aa5 in place. Administered Medications: 15:50 Drug: NS 0.9% IV 1000 ml IV at 1000 ml once; to be given as a bolus over 60 minutes aa5 Route: IV; Rate: 1000 ml; Site: right antecubital; 15:50 Drug: foLIC Acid IVPB 1 mg IVPB once Route: IVPB; Site: right antecubital; aa5 15:58 Drug: TNK FOR STROKE - Tenecteplase IV (Administer 10 ml NS flush BEFORE and ap3 AFTER tenecteplase) 25 mg IV at per protocol once; 0.25mg/kg, MAX DOSE 25 mg, IVP over 5 seconds {Co-Signature: aa5 (Beth Pope RN).} Route: IV; Rate: per protocol; Site: right antecubital; 15:58 Follow up: adminstered 25mg (max dose) ap3 15:59 Follow up: Response: No adverse reaction; IV Status: Completed infusion aa5 17:00 Drug: Potassium PO Effervescent Tablet 25 mEq PO once; dissolve in 4 ounces of water or rs5 juice Route: PO; 17:30 Follow up: Response: No adverse reaction aa5 Medication: 16:35 VIS not applicable for this client. aa5 Point of Care Testing: Blood Glucose: 15:47 Blood Glucose: 88 mg/dL; aa5 Ranges: Intake: Outcome: 16:18 ER care complete, transfer ordered by janelle 17:38 Transferred by ground EMS to [facility], Transfer form completed. aa5 X-rays sent w/ patient. 17:38 Condition: stable 17:38 Instructed on the need for transfer, Demonstrated understanding of instructions, 17:40 Patient left the ED. aa5 NIH Stroke Scale - NIH Stroke Score Date: 10/09/2024 Time: 16:13 Total Score = 1 10. Dysarthria (speech clarity - read or repeat words) - 0(Normal) 11. Extinction and Inattention (visual/tactile/auditory/spatial/personal) - 0(No abnormality) 1a. Level of Consciousness (LOC) - 0(Alert) 1b. Level of Consciousness (LOC) (Month \\T\\ Age) - 0(Both) 1c. LOC Commands (Open \\T\\ Closes Eyes/Portfolio Manager) - 0(Both) 2. Best Gaze (Lateral Gaze Paresis) - 0(Normal) 3. Visual Field Loss - 0(No visual loss) 4. Facial Palsy - 0(Normal) 5a. Left Arm: Motor (10-second hold) - 0(No drift) 5b. Right Arm: Motor (10-second hold) - 0(No drift) 6a. Left Leg: Motor (5-second hold - always test supine) - 0(No drift) 6b. Right Leg: Motor (5-second hold - always test supine) - 0(No drift) 7. Limb Ataxia (finger/nose \\T\\ heel/rodriguez - test with eyes open) - 0(Absent) 8. Sensory Loss (pinprick arms/legs/face) - 1(Mild to moderate loss) 9. Best Language: Aphasia (description/naming/reading) - 0(No aphasia) Initials: aa5 NIH Stroke Scale - NIH Stroke Score Date: 10/09/2024 Time: 16:18 Total Score = 3 10. Dysarthria (speech clarity - read or repeat words) - 0(Normal) 11. Extinction and Inattention (visual/tactile/auditory/spatial/personal) - 0(No abnormality) 1a. Level of Consciousness (LOC) - 0(Alert) 1b. Level of Consciousness (LOC) (Month \\T\\ Age) - 0(Both) 1c. LOC Commands (Open \\T\\ Closes Eyes/Portfolio Manager) - 0(Both) 2. Best Gaze (Lateral Gaze Paresis) - 0(Normal) 3. Visual Field Loss - 0(No visual loss) 4. Facial Palsy - 1(Minor Paralysis) 5a. Left Arm: Motor (10-second hold) - 0(No drift) 5b. Right Arm: Motor (10-second hold) - 0(No drift) 6a. Left Leg: Motor (5-second hold - always test supine) - 0(No drift) 6b. Right Leg: Motor (5-second hold - always test supine) - 0(No drift) 7. Limb Ataxia (finger/nose \\T\\ heel/rodriguez - test with eyes open) - 0(Absent) 8. Sensory Loss (pinprick arms/legs/face) - 1(Mild to moderate loss) 9. Best Language: Aphasia (description/naming/reading) - 1(Mild to moderate aphasia) Initials: janelle NIH Stroke Scale - NIH Stroke Score Date: 10/09/2024 Time: 16:36 Total Score = 1 10. Dysarthria (speech clarity - read or repeat words) - 0(Normal) 11. Extinction and Inattention (visual/tactile/auditory/spatial/personal) - 0(No abnormality) 1a. Level of Consciousness (LOC) - 0(Alert) 1b. Level of Consciousness (LOC) (Month \\T\\ Age) - 0(Both) 1c. LOC Commands (Open \\T\\ Closes Eyes/Portfolio Manager) - 0(Both) 2. Best Gaze (Lateral Gaze Paresis) - 0(Normal) 3. Visual Field Loss - 0(No visual loss) 4. Facial Palsy - 0(Normal) 5a. Left Arm: Motor (10-second hold) - 0(No drift) 5b. Right Arm: Motor (10-second hold) - 0(No drift) 6a. Left Leg: Motor (5-second hold - always test supine) - 0(No drift) 6b. Right Leg: Motor (5-second hold - always test supine) - 0(No drift) 7. Limb Ataxia (finger/nose \\T\\ heel/rodriguez - test with eyes open) - 0(Absent) 8. Sensory Loss (pinprick arms/legs/face) - 1(Mild to moderate loss) 9. Best Language: Aphasia (description/naming/reading) - 0(No aphasia) Initials: aa5 NIH Stroke Scale - NIH Stroke Score Date: 10/09/2024 Time: 17:38 Total Score = 1 10. Dysarthria (speech clarity - read or repeat words) - 0(Normal) 11. Extinction and Inattention (visual/tactile/auditory/spatial/personal) - 0(No abnormality) 1a. Level of Consciousness (LOC) - 0(Alert) 1b. Level of Consciousness (LOC) (Month \\T\\ Age) - 0(Both) 1c. LOC Commands (Open \\T\\ Closes Eyes/Portfolio Manager) - 0(Both) 2. Best Gaze (Lateral Gaze Paresis) - 0(Normal) 3. Visual Field Loss - 0(No visual loss) 4. Facial Palsy - 0(Normal) 5a. Left Arm: Motor (10-second hold) - 0(No drift) 5b. Right Arm: Motor (10-second hold) - 0(No drift) 6a. Left Leg: Motor (5-second hold - always test supine) - 0(No drift) 6b. Right Leg: Motor (5-second hold - always test supine) - 0(No drift) 7. Limb Ataxia (finger/nose \\T\\ heel/rodriguez - test with eyes open) - 0(Absent) 8. Sensory Loss (pinprick arms/legs/face) - 1(Mild to moderate loss) 9. Best Language: Aphasia (description/naming/reading) - 0(No aphasia) Initials: aa5 Signatures: Dispatcher [employer] EDMS Aneudy Reyes MD MD cha Calderon, Audri, RN RN aa5 Aneudy Mcclain, Charmaine Hernandez cp, RN RN ap3 Jessenia Pool RN RN ko1 David Gutierrez, RN RN rs5 Moonbrianna Alethea bc6 Beth Pope RN aa5 Corrections: (The following items were deleted from the chart) 15:33 15:14 Allergies: No Known Allergies; aa5 aa5 16:34 16:00 VAN Scoring: Arm Drift: Patients demonstrates NO arm weakness. Patient is aa5 VAN Negative. Visual Disturbance: No visual disturbance noted. Aphasia: No aphasia noted. Neglect: No neglect noted. aa5 16:34 15:50 Reassessment: Pt back from CT scan . aa5 aa5 16:34 15:25 Initial lab(s) drawn, by me, sent to lab. aa5 aa5 16:37 15:14 NIHSS Score: 0 aa5 aa5 17:55 17:52 Patient left the ED. aa5 aa5
--- NOTE | 2024-10-09 16:19 | EDPHYS ---
Physician Documentation [facility] Name: Genet Webb Age: 29 yrs Sex: Female : 1995 Arrival Date: 10/09/2024 Time: 15:08 Bed 4 Private MD: ED Physician Aneudy Reyes HPI: 10/09 16:02 This 29 yrs old Female presents to ER via EMS with complaints of Doesn't Feel janelle Right. 16:02 The patient's problem is reported as a facial droop, on right, paresthesias, in right janelle upper extremity, in right lower extremity, an apparent seizure, with the patient having. Onset: The symptoms/episode began/occurred at 13:00. Duration: This was a single incident, The episode is continuous. Context: the episode(s) was witnessed, by family, symptoms became apparent at 13:00. The symptoms are alleviated by nothing. The symptoms are aggravated by nothing. right face droop, speech off, right arm leg decreased senation. Associated signs and symptoms: Pertinent positives: lightheadedness. Severity of symptoms: At their worst the symptoms were moderate in the emergency department the symptoms are unchanged. Patient's baseline: Neuro: alert and fully oriented. Historical: - Allergies: 15:14 No Known Allergies; aa5 - PMHx: 15:14 Anxiety; Depressive disorder; ADHD; aa5 - Immunization history:: Adult Immunizations up to date. - Infectious Disease History:: Denies. - Family history:: not pertinent. - Social history:: Smoking status: Patient denies any tobacco usage or history of. ROS: 16:02 Constitutional: Negative for fever, chills, and weight loss, Eyes: Negative for injury, janelle pain, redness, and discharge, ENT: Negative for injury, pain, and discharge, Neck: Negative for injury, pain, and swelling, Cardiovascular: Negative for chest pain, palpitations, and edema, Respiratory: Negative for shortness of breath, cough, wheezing, and pleuritic chest pain, Abdomen/GI: Negative for abdominal pain, nausea, vomiting, diarrhea, and constipation, Back: Negative for injury and pain, : Negative for injury, bleeding, discharge, and swelling, MS/Extremity: Negative for injury and deformity, Skin: Negative for injury, rash, and discoloration, Psych: Negative for depression, anxiety, suicide ideation, homicidal ideation, and hallucinations, Allergy/Immunology: Negative for hives, rash, and allergies, Endocrine: Negative for neck swelling, polydipsia, polyuria, polyphagia, and marked weight changes, Hematologic/Lymphatic: Negative for swollen nodes, abnormal bleeding, and unusual bruising, 16:02 Neuro: Positive for dizziness, speech changes, tingling, of the right arm and right leg, Exam: 16:02 Radiologist reports: negative janelle 16:02 Constitutional: This is a well developed, well nourished patient who is awake, alert, and in no acute distress. Head/Face: Normocephalic, atraumatic. Eyes: Pupils equal round and reactive to light, extra-ocular motions intact. Lids and lashes normal. Conjunctiva and sclera are non-icteric and not injected. Cornea within normal limits. Periorbital areas with no swelling, redness, or edema. ENT: Nares patent. No nasal discharge, no septal abnormalities noted. Tympanic membranes are normal and external auditory canals are clear. Oropharynx with no redness, swelling, or masses, exudates, or evidence of obstruction, uvula midline. Mucous membranes moist. Neck: Trachea midline, no thyromegaly or masses palpated, and no cervical lymphadenopathy. Supple, full range of motion without nuchal rigidity, or vertebral point tenderness. No Meningismus. Chest/axilla: Normal chest wall appearance and motion. Nontender with no deformity. No lesions are appreciated. Cardiovascular: Regular rate and rhythm with a normal S1 and S2. No gallops, murmurs, or rubs. Normal PMI, no JVD. No pulse deficits. Respiratory: Lungs have equal breath sounds bilaterally, clear to auscultation and percussion. No rales, rhonchi or wheezes noted. No increased work of breathing, no retractions or nasal flaring. Abdomen/GI: Soft, non-tender, with normal bowel sounds. No distension or tympany. No guarding or rebound. No evidence of tenderness throughout. Back: No spinal tenderness. No costovertebral tenderness. Full range of motion. Skin: Warm, dry with normal turgor. Normal color with no rashes, no lesions, and no evidence of cellulitis. MS/ Extremity: Pulses equal, no cyanosis. Neurovascular intact. Full, normal range of motion., bilateral aka Neuro: Awake and alert, GCS 15, oriented to person, place, time, and situation. Cranial nerves II-XII grossly intact. Motor strength 5/5 in all extremities. Sensory grossly intact. Cerebellar exam normal. Normal gait. Psych: Awake, alert, with orientation to person, place and time. Behavior, mood, and affect are within normal limits. 16:02 ECG was reviewed by the Attending Physician. Vital Signs: 15:14 BP 130 / 81; Pulse 90; Resp 18 S; Temp 98.4(O); Pulse Ox 100% on R/A; Weight 104.33 kg aa5 (R); Height 5 ft. 6 in. (R); 15:40 BP 134 / 96; Pulse 78; Resp 18 S; Pulse Ox 100% on R/A; aa5 15:50 Weight 104.33 kg (M); aa5 16:13 BP 133 / 86; Pulse 78; Resp 16 S; Pulse Ox 98% on R/A; aa5 16:43 BP 132 / 96; Pulse 80; Resp 16 S; Pulse Ox 99% on R/A; aa5 17:28 BP 140 / 91; Pulse 73; Resp 18 S; Pulse Ox 99% on R/A; aa5 15:14 Body Mass Index 37.12 (104.33 kg, 167.64 cm) aa5 NIH Stroke Scale Scores: 16:13 NIHSS Score: 1 aa5 16:18 NIHSS Score: 3 janelle 16:36 NIHSS Score: 1 aa5 17:38 NIHSS Score: 1 aa5 MDM: 15:18 Medical Screening Exam initiated cp 16:11 Differential diagnosis: CVA, TIA, metabolic disorder, drug effects. Differential janelle Diagnosis altered mental status. TNKase (Tenecteplase) Screening: Indications: Definite evidence of stroke, ischemic, embolic, or hypertensive: Yes. Treatment will start within 4.5 hours onset of symptoms: Yes. No evidence of intracranial hemorrhage or CT of head and no evidence of peripheral hemorrhage or recent CVA: Yes. Consent for thrombolytic therapy: Yes. Contraindications: Other: none. Data reviewed: vital signs, nurses notes, EMS record, lab test result(s), EKG, radiologic studies, CT scan, plain films. Consideration of Admission/Observation Patient was admitted/placed on observation. Escalation of care including admission/observation considered. I considered the following discharge prescriptions or medication management in the emergency department Medications were administered in the Emergency Department. See MAR. Independent interpretation of the following test(s) in the Emergency Department Radiology Department Ultrasound: My interpretation is no carotid usg. Test considered but Not performed: Ultrasound no carotid doppler. Historians other than the Patient: EMS: ems well informed. External Records Reviewed: none. Care significantly affected by the following chronic conditions: none. Counseling: I had a detailed discussion with the patient and/or guardian regarding the historical points, exam findings, and any diagnostic results supporting the discharge/admit diagnosis, lab results, radiology results, the need for further work-up and treatment in the hospital. 10/09 15:28 Order name: Basic Metabolic Panel; Complete Time: 16:[address] [facility] 10/09 15:28 Order name: CBC with Diff; Complete Time: 16:[address] [facility] 10/09 15:28 Order name: LFT's; Complete Time: 16:[address] [facility] 10/09 15:28 Order name: Magnesium; Complete Time: 16:[address] [facility] 10/09 15:28 Order name: NT PRO-BNP; Complete Time: 16:[address] [facility] 10/09 15:28 Order name: PT-INR; Complete Time: 16:[address] [facility] 10/09 15:28 Order name: Troponin HS; Complete Time: 16:[address] [facility] 10/09 15:28 Order name: Test, Serum; Complete Time: 16:[address] [facility] 10/09 15:28 Order name: CRP; Complete Time: 16:[address] [facility] 10/09 15:57 Order name: Glucose, Ancillary Testing; Complete Time: 16:14 [facility] 10/09 15:28 Order name: XRAY Chest (1 view); Complete Time: 17:[address] [facility] 10/09 15:28 Order name: CT Stroke Brain w/o Contrast; Complete Time: 15:[address] [facility] 10/09 15:28 Order name: CT Head Angio; Complete Time: 15:[address] [facility] 10/09 15:28 Order name: CT Neck Angio; Complete Time: 15:[address] [facility] 10/09 15:28 Order name: EKG; Complete Time: 15:[address] [facility] 10/09 15:28 Order name: Cardiac monitoring; Complete Time: 15:[address] [facility] 10/09 15:28 Order name: EKG - Nurse/Tech; Complete Time: 16:[address] [facility] 10/09 15:28 Order name: IV Saline Lock; Complete Time: 15:[address] [facility] 10/09 15:28 Order name: Labs collected and sent; Complete Time: 16:[address] [facility] 10/09 15:28 Order name: O2 Per Protocol; Complete Time: 15: [facility] 10/09 15:28 Order name: O2 Sat Monitoring; Complete Time: 15: [facility] EC:02 Rate is 72 beats/min. Rhythm is regular. QRS [place] is Normal. CA interval is normal. QRS janelle interval is normal. QT interval is normal. No Q waves. T waves are Normal. No ST changes noted. Clinical impression: Normal ECG and No evidence of ischemia. Interpreted by me. Reviewed by me. Administered Medications: 15:50 Drug: NS 0.9% IV 1000 ml IV at 1000 ml once; to be given as a bolus over 60 minutes aa5 Route: IV; Rate: 1000 ml; Site: right antecubital; 15:50 Drug: foLIC Acid IVPB 1 mg IVPB once Route: IVPB; Site: right antecubital; aa5 15:58 Drug: TNK FOR STROKE - Tenecteplase IV (Administer 10 ml NS flush BEFORE and ap3 AFTER tenecteplase) 25 mg IV at per protocol once; 0.25mg/kg, MAX DOSE 25 mg, IVP over 5 seconds {Co-Signature: aa5 (Beth Pope RN).} Route: IV; Rate: per protocol; Site: right antecubital; 15:58 Follow up: adminstered 25mg (max dose) ap3 15:59 Follow up: Response: No adverse reaction; IV Status: Completed infusion aa5 17:00 Drug: Potassium PO Effervescent Tablet 25 mEq PO once; dissolve in 4 ounces of water or rs5 juice Route: PO; 17:30 Follow up: Response: No adverse reaction aa5 Point of Care Testing: Blood Glucose: 15:47 Blood Glucose: 88 mg/dL; aa5 Ranges: Critical Glucose Levels:Adult <50 mg/dl or >400 mg/dl <40 mg/dl or >180 mg/dl Disposition Summary: 10/09/24 16:18 Transfer Ordered Notes: Transfer Location: [facility] janelle Reason: Higher level of care janelle Condition: Stable janelle Problem: new janelle Symptoms: have improved janelle Accepting Physician: to icu neuro drip and elliot(10/09/24 17:52) aa5 Diagnosis - Aphasia janelle - Cerebral infarction, unspecified - rightarm and right leg numbness, right lower janelle facial numbness - Hypokalemia janelle Forms: - Medication Reconciliation Form janelle - SBAR form janelle NIH Stroke Scale - NIH Stroke Score Date: 10/09/2024 Time: 16:13 Total Score = 1 10. Dysarthria (speech clarity - read or repeat words) - 0(Normal) 11. Extinction and Inattention (visual/tactile/auditory/spatial/personal) - 0(No abnormality) 1a. Level of Consciousness (LOC) - 0(Alert) 1b. Level of Consciousness (LOC) (Month \T\ Age) - 0(Both) 1c. LOC Commands (Open \T\ Closes Eyes/Tuber Machine Cutter) - 0(Both) 2. Best Gaze (Lateral Gaze Paresis) - 0(Normal) 3. Visual Field Loss - 0(No visual loss) 4. Facial Palsy - 0(Normal) 5a. Left Arm: Motor (10-second hold) - 0(No drift) 5b. Right Arm: Motor (10-second hold) - 0(No drift) 6a. Left Leg: Motor (5-second hold - always test supine) - 0(No drift) 6b. Right Leg: Motor (5-second hold - always test supine) - 0(No drift) 7. Limb Ataxia (finger/nose \T\ heel/rodriguez - test with eyes open) - 0(Absent) 8. Sensory Loss (pinprick arms/legs/face) - 1(Mild to moderate loss) 9. Best Language: Aphasia (description/naming/reading) - 0(No aphasia) Initials: aa5 NIH Stroke Scale - NIH Stroke Score Date: 10/09/2024 Time: 16:18 Total Score = 3 10. Dysarthria (speech clarity - read or repeat words) - 0(Normal) 11. Extinction and Inattention (visual/tactile/auditory/spatial/personal) - 0(No abnormality) 1a. Level of Consciousness (LOC) - 0(Alert) 1b. Level of Consciousness (LOC) (Month \T\ Age) - 0(Both) 1c. LOC Commands (Open \T\ Closes Eyes/Tuber Machine Cutter) - 0(Both) 2. Best Gaze (Lateral Gaze Paresis) - 0(Normal) 3. Visual Field Loss - 0(No visual loss) 4. Facial Palsy - 1(Minor Paralysis) 5a. Left Arm: Motor (10-second hold) - 0(No drift) 5b. Right Arm: Motor (10-second hold) - 0(No drift) 6a. Left Leg: Motor (5-second hold - always test supine) - 0(No drift) 6b. Right Leg: Motor (5-second hold - always test supine) - 0(No drift) 7. Limb Ataxia (finger/nose \T\ heel/rodriguez - test with eyes open) - 0(Absent) 8. Sensory Loss (pinprick arms/legs/face) - 1(Mild to moderate loss) 9. Best Language: Aphasia (description/naming/reading) - 1(Mild to moderate aphasia) Initials: janelle NIH Stroke Scale - NIH Stroke Score Date: 10/09/2024 Time: 16:36 Total Score = 1 10. Dysarthria (speech clarity - read or repeat words) - 0(Normal) 11. Extinction and Inattention (visual/tactile/auditory/spatial/personal) - 0(No abnormality) 1a. Level of Consciousness (LOC) - 0(Alert) 1b. Level of Consciousness (LOC) (Month \T\ Age) - 0(Both) 1c. LOC Commands (Open \T\ Closes Eyes/Tuber Machine Cutter) - 0(Both) 2. Best Gaze (Lateral Gaze Paresis) - 0(Normal) 3. Visual Field Loss - 0(No visual loss) 4. Facial Palsy - 0(Normal) 5a. Left Arm: Motor (10-second hold) - 0(No drift) 5b. Right Arm: Motor (10-second hold) - 0(No drift) 6a. Left Leg: Motor (5-second hold - always test supine) - 0(No drift) 6b. Right Leg: Motor (5-second hold - always test supine) - 0(No drift) 7. Limb Ataxia (finger/nose \T\ heel/rodriguez - test with eyes open) - 0(Absent) 8. Sensory Loss (pinprick arms/legs/face) - 1(Mild to moderate loss) 9. Best Language: Aphasia (description/naming/reading) - 0(No aphasia) Initials: aa5 NIH Stroke Scale - NIH Stroke Score Date: 10/09/2024 Time: 17:38 Total Score = 1 10. Dysarthria (speech clarity - read or repeat words) - 0(Normal) 11. Extinction and Inattention (visual/tactile/auditory/spatial/personal) - 0(No abnormality) 1a. Level of Consciousness (LOC) - 0(Alert) 1b. Level of Consciousness (LOC) (Month \T\ Age) - 0(Both) 1c. LOC Commands (Open \T\ Closes Eyes/Tuber Machine Cutter) - 0(Both) 2. Best Gaze (Lateral Gaze Paresis) - 0(Normal) 3. Visual Field Loss - 0(No visual loss) 4. Facial Palsy - 0(Normal) 5a. Left Arm: Motor (10-second hold) - 0(No drift) 5b. Right Arm: Motor (10-second hold) - 0(No drift) 6a. Left Leg: Motor (5-second hold - always test supine) - 0(No drift) 6b. Right Leg: Motor (5-second hold - always test supine) - 0(No drift) 7. Limb Ataxia (finger/nose \T\ heel/rodriguez - test with eyes open) - 0(Absent) 8. Sensory Loss (pinprick arms/legs/face) - 1(Mild to moderate loss) 9. Best Language: Aphasia (description/naming/reading) - 0(No aphasia) Initials: aa5 Signatures: Dispatcher [employer] EDAneudy Canas MD MD cha Calderon, Audri, FRANCA RN aa5 Aneudy Mcclain PA PA cp Prokisch, Amanda, RN RN ap3 David Gutierrez RN RN rs5 Beth Pope RN aa5 Corrections: (The following items were deleted from the chart) 15: 15:28 BASIC METABOLIC PANEL+C.LAB.BRZ ordered. EDMS EDMS 15:29 15:28 CBC+H.LAB.BRZ ordered. EDMS EDMS 15:29 15:28 HEPATIC FUNCTION+C.LAB.BRZ ordered. EDMS EDMS 15:29 15:28 MAGNESIUM+C.LAB.BRZ ordered. EDMS EDMS 15:29 15:28 PROBNP+C.LAB.BRZ ordered. EDMS EDMS 15:29 15:28 PROTIME (+INR)+COAG.LAB.BRZ ordered. EDMS EDMS 15: 15:28 Troponin High Sensitivity+C.LAB.BRZ ordered. EDMS EDMS 15: 15:28 Urinalysis+U.LAB.BRZ ordered. EDMS EDMS 15: 15:28 Test, Urine+UC.LAB.BRZ ordered. EDMS EDMS 15: 15:28 TEST, SERUM+SC.LAB.BRZ ordered. EDMS EDMS 15: 15:29 CT-STROKE BRAIN W/O CONTRAST+CT.RAD.BRZ ordered. EDMS EDMS 15: 15:29 Head Angio+CT.RAD.BRZ ordered. EDMS EDMS 15: 15:29 Neck Angio+CT.RAD.BRZ ordered. EDMS EDMS 15: 15:29 C-REACTIVE PROTEIN+C.LAB.BRZ ordered. EDMS EDMS 15:33 15:14 Allergies: No Known Allergies; aa5 aa5 15:46 15:46 MR STROKE PROTOCOL+MRI.RAD.BRZ ordered. EDMS EDMS 16:23 16:18 to icu neuro drip and ship janelle janelle 17:52 16:23 to icu neuro drip and ship janelle aa5
--- NOTE | 2024-10-09 16:25 | RAD REPORT ---
EXAMINATION: ONE VIEW CHEST XR CLINICAL INDICATION: COUGH TECHNIQUE: Frontal chest projection is submitted. Examination is limited by patient positioning and t echnique. COMPARISON: 01/15/2022 FINDINGS: The lungs are well inflated and clear. The heart is normal in size. No displaced fractures identified . IMPRESSION: No acute intrathoracic abnormalities.
[2024-10-09] MEDS ORDERED: POTASSIUM 25 MEQ EFFERV TAB ONE (16:58)
[2024-10-09 17:57] VITALS: BP 130/81; TEMP 98.4; O2SAT 100
--- NOTE | 2024-10-10 15:46 | EKG ---
Test Date: 2024-10-09 Test Time: 15:54:19 Senior Web Designer: AM MEASUREMENT RESULTS: Intervals: Rate: 72 MA: 156 QRSD: 78 QT: 378 QTc: 413 [place]: P: 69 MA: 156 QRS: 66 T: 37 INTERPRETIVE STATEMENTS: Normal sinus rhythm Normal ECG Compared to ECG 01/23/2022 17:56:48 Sinus arrhythmia no longer present Electronically Signed On 10-10-24 15:45:38 MUD BOSS by Agustín Gonzalez
== END 2024-10-09 17:52 | disposition short-term general hospital (02) ==
LOC: ER 15:08
DX: I63.9 Cerebral infarction, unspecified (principal); R47.01 Aphasia; R29.810 Facial weakness; G81.91 Hemiplegia, unspecified affecting right dominant side; R29.701 NIHSS score 1
CPT/HCPCS: 92977; 93005; 85025; 80048; 36415; 83735; 84703; 85610; 82947; 80076; 84484; 83880; 86140; 70496; 70498; 70450; 71045; 96375; 96374; 99285; Q9967; J3101; J7030

== ENCOUNTER 2024-10-14 10:11 | Emergency (ER) | payer OTHER ==
--- NOTE | 2024-10-14 10:52 | RAD REPORT ---
EXAMINATION: ONE VIEW CHEST XR CLINICAL INDICATION: dizziness TECHNIQUE: Frontal chest projection is submitted. Examination is limited by patient positioning and t echnique. COMPARISON: 10/09/2024 FINDINGS: The lungs are well inflated and clear. The heart is normal in size. No displaced fractures identified . IMPRESSION: No acute intrathoracic abnormalities.
--- NOTE | 2024-10-14 11:03 | RAD REPORT ---
EXAM: CT brain without contrast HISTORY: Headache;Dizziness COMPARISON: 10/09/2024, studies TECHNIQUE: Multiple contiguous axial images were obtained and a CT of the brain without contrast. Sag ittal and coronal reformats were performed. One or more of the following dose reduction techniques were used: Automated exposure control, adjust ment of the mA and/or kV according to patient size, and/or iterative reconstruction. FINDINGS: No evidence of hydrocephalus, intracranial hemorrhage, or extra-axial fluid collection. The brain is normal in morphology. No evidence of midline shift or areas of brain edema. The calvarium is intact. The visualized paranasal sinuses and mastoid air cells are essentially clear . IMPRESSION: No evidence of acute intracranial abnormality.
[2024-10-14] MEDS ORDERED: NA CHLORIDE 0.9% 1,000 ML ONE (11:14)
[2024-10-14 11:23] LABS: Absolute Lymphocytes (CBC) 1.2 K/uL (0.7-4.9); Absolute Monocytes 0.4 K/uL (0.1-1.3); Absolute Neutrophil 3.6 K/uL (1.8-8.0); Basophils % 0.4 % (0-1.3); Eosinophils % 0.9 % (0-4.4); Hematocrit 39.1 % (36.0-45.0); Hemoglobin 13.1 g/dL (12.0-15.0); Lymphocytes % 22.6 % (15.3-44.8); MCH 30.6 pg (27.0-35.0); MCHC 33.5 g/dL (32.0-36.0); MCV 91.2 fL (80-100); MPV 8.8 fL (7.6-11.3); Monocytes % 7.8 % (3.3-12.3); Neutrophils % 68.3 % (41.7-73.7); Platelets 232 thou/uL (152-406); RBC Red Blood Cell Count 4.29 M/uL (3.86-4.86); Red Cell Distribution Width 13.2 % (12.1-15.2)
[2024-10-14 11:27] LABS: PT Prothrombin Time 11.7 SECONDS (9.4-12.5); PTT, Activated Partial Thromb 32.4 SECONDS (24.3-36.9); Protime INR 1.05
[2024-10-14 11:41] LABS: Specific Gravity 1.009 (1.005-1.030); Sqamous Epithelial <5 /HPF (None Seen); Urine Bacteria <20 /HPF (<20); Urine Bilirubin NEGATIVE (Negative); Urine Blood Negative (Negative); Urine Clarity Turbid (Clear); Urine Color Colorless (Yellow); Urine Culture Reflex Order NOT NEEDED; Urine Glucose NEGATIVE (Negative); Urine Ketones NEGATIVE (Negative); Urine Microscopic Reflex YN ORDER UMIC; Urine Nitrite NEGATIVE (Negative); Urine Protein NEGATIVE (Negative); Urine RBC <5 /HPF (None Seen); Urine Urobilinogen Normal (Normal); Urine WBC <5 /HPF (<5)
[2024-10-14 11:42] LABS: Albumin 3.6 g/dL (3.4-5.0); Anion Gap 8.9 mEq/L (5.0-15.0); Bilirubin Direct 0.2 mg/dL (0-0.2); Bilirubin Indirect, Calculated 0.6 mg/dL (0.2-0.8); Bilirubin Total 0.8 mg/dL (0.2-1.0); Globulin 3.6 g/dL (2.3-3.5); Magnesium 1.7 mg/dL (1.6-2.4); Potassium 3.9 mEq/L (3.5-5.1); Protein, Total 7.2 g/dL (6.4-8.2); Troponin High Sensitivity 3.2 pg/mL (<58.9)
--- NOTE | 2024-10-14 13:01 | ER ---
Nurse's Notes [facility] Name: Genet Webb Age: 29 yrs Sex: Female : 1995 Arrival Date: 10/14/2024 Time: 10:11 Bed 20 Private MD: Diagnosis: Headache;Dizziness and giddiness Presentation: 10/14 10:22 Chief complaint: Patient states: I have been dizzy, SOB, nausea, vomiting, with tm6 headache, pain behind left eye since I was released from the hospital on Sunday. I had a stroke. Coronavirus screen: Client denies travel out of the [place] in the last 14 days. Ebola Screen: Patient negative for fever greater than or equal to 101.5 degrees Fahrenheit, and additional compatible Ebola Virus Disease symptoms Patient denies exposure to infectious person. Patient denies travel to an Ebola-affected area in the 21 days before illness onset. No symptoms or risks identified at this time. Initial Sepsis Screen: Does the patient meet any 2 criteria? No. Patient's initial sepsis screen is negative. Does the patient have a suspected source of infection? No. Patient's initial sepsis screen is negative. Risk Assessment: Do you want to hurt yourself or someone else? Patient reports no desire to harm self or others. Onset of symptoms was October 11, 2024. 10:22 Method Of Arrival: Ambulatory tm6 10:22 Acuity: KETUARH 3 tm6 Triage Assessment: 10:24 Headache History: Denies prior headaches. General: Appears in no apparent distress. tm6 uncomfortable, Behavior is calm, cooperative. Pain: Complains of pain in left eye, head Pain currently is 6 out of 10 on a pain scale. Pain began 2-3 days ago. Also complains of nausea, shortness of breath. EENT: Reports pain in left eye. Neuro: Level of Consciousness is awake, alert, obeys commands, Oriented to person, place, time, situation, Reports dizziness, headache. Cardiovascular: Patient's skin is warm and dry. Respiratory: Airway is patent Respiratory effort is even, unlabored, Respiratory pattern is regular, symmetrical. GI: Abdomen is round non-distended, Reports nausea, vomiting. : No signs and/or symptoms were reported regarding the genitourinary system. Derm: No signs and/or symptoms reported regarding the dermatologic system. Musculoskeletal: No signs and/or symptoms reported regarding the musculoskeletal system. 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 - Infectious Disease History:: Denies. - Social history:: Smoking status: . - Family history:: not pertinent. - Hospitalizations: : No recent hospitalization is reported. Screenin:19 Abuse screen: Denies threats or abuse. Nutritional screening: No deficits noted. ap3 Tuberculosis screening: No symptoms or risk factors identified. 11:19 [facility] ED Fall Risk Assessment (Adult) History of falling in the last 3 months, ap3 including since admission No falls in past 3 months (0 pts) Confusion or Disorientation No (0 pts) Intoxicated or Sedated No (0 pts) Impaired Gait No (0 pts) Mobility Assist Device Used No (0 pt) Altered Elimination No (0 pt) Score/Fall Risk Level 0 - 2 = Low Risk Oriented to surroundings, Maintained a safe environment, Educated pt \T\ family on fall prevention, incl call for assistance when getting out of bed, Assessed \T\ reinforced patient's understanding of fall precautions, Hourly rounding (assess needs \T\ fall precautionary measures) done, Used ambulatory aids as needed (educated on \T\ assisted with), Used gait belt as appropriate. Assessment: 11:18 General: Appears in no apparent distress. Behavior is calm, cooperative, appropriate ap3 for age. Pain: Complains of pain in head Pain began 2-3 days ago. Neuro: Level of Consciousness is awake, alert, obeys commands, Oriented to person, place, time, situation, Gait is steady, Speech is normal, Facial symmetry appears normal. Respiratory: Airway is patent Respiratory effort is even, unlabored, Respiratory pattern is regular, symmetrical. Derm: Bruising that is dark purple. Vital Signs: 10:22 BP 140 / 91; Pulse 90; Resp 17; Temp 97.8(O); Pulse Ox 100% on R/A; MAP 105 mmHg; tm6 10:22 Pain 6/10; tm6 10:26 Weight 104.33 kg; Height 5 ft. 6 in. ; tm6 11:32 BP 134 / 88; Pulse 86; Resp 17; Pulse Ox 99% on R/A; ap3 12:15 BP 134 / 84; Pulse 85; Resp 17; Pulse Ox 100% on R/A; ap3 10:26 Body Mass Index 37.12 (104.33 kg, 167.64 cm) tm6 10:22 Pain Scale: Adult tm6 Yanet Coma Score: 13:00 Eye Response: spontaneous(4). Motor Response: obeys commands(6). Verbal Response: rn oriented(5). Total: 15. ED Course: 10:14 Patient arrived in ED. ra3 10:20 Santiago Becerril MD is Attending Physician. rn 10:24 Triage completed. tm6 10:24 Arm band placed on right wrist. tm6 10:46 Chest Single View XRAY In Process Unspecified. EDMS 10:58 CT Head Brain wo Cont In Process Unspecified. EDMS 11:01 Charmaine Ny RN is Primary Nurse. ap3 11:12 Inserted saline lock: 22 gauge in left antecubital area, using aseptic technique. Blood ap3 collected. Flushed with 10 mL NS. 11:19 Patient has correct armband on for positive identification. Bed in low position. Call ap3 light in reach. Side rails up X 1. Provided Education on: fall risk education. Client placed on continuous cardiac and pulse oximetry monitoring. NIBP monitoring applied. campus monitor on. Pulse ox on. NIBP on. 11:28 EKG done, by ED staff, reviewed by Santiago Becerril MD. ap3 13:20 No provider procedures requiring assistance completed. IV discontinued, intact, ap3 bleeding controlled, No redness/swelling at site. Pressure dressing applied. Administered Medications: 11:29 Drug: NS 0.9% IV 500 ml 500 ml IV at 1 bolus once; to be given as a bolus over 30 ap3 minutes Volume: 500 ml; Route: IV; Rate: 1 bolus; Site: left antecubital; 12:29 Follow up: IV Status: Completed infusion ap3 Medication: 11:19 VIS not applicable for this client. ap3 Outcome: 13:01 Discharge ordered by . rn 13:21 Discharged to home ambulatory, ap3 13:21 Condition: good 13:21 Discharge instructions given to patient, Instructed on discharge instructions, follow up and referral plans. Demonstrated understanding of instructions, follow-up care, 13:21 Patient left the ED. ap3 Signatures: Dispatcher [employer] Santiago Peace MD MD rn Prokisch, Amanda RN RN ap3 Yared Russell RN RN 6 Heather Laura 3
--- NOTE | 2024-10-14 13:02 | EDPHYS ---
Physician Documentation [facility] Name: Genet Webb Age: 29 yrs Sex: Female : 1995 Arrival Date: 10/14/2024 Time: 10:11 Bed 20 Private MD: ED Physician Santiago Becerril HPI: 10/14 11:27 This 29 yrs old Female presents to ER via Ambulatory with complaints of Headache, rn Dizziness. 11:27 The patient complains of pain to the Behind left eye. The patient describes the rn headache as aching. Onset: The symptoms/episode began/occurred 3 day(s) ago. Associated signs and symptoms: Pertinent positives: dizziness, malaise, Pertinent negatives: fever, neck stiffness, vision changes, vision loss, weakness. Severity of symptoms: At its worst the pain was mild, in the emergency department the pain is unchanged. The symptoms are alleviated by nothing. the symptoms are aggravated by nothing. The patient has experienced a previous episode. Patient reports given TNK and transferred to [place] 5 days ago for diagnosis of ischemic stroke. Presented with right-sided numbness and facial droop at that time with trouble speaking. Patient reports after TNK symptoms improved and discharged from hospital a few days ago as ischemic stroke. Patient reports felt better almost back to baseline then Sunday 3 days ago started with left retro-orbital headache associated with dizziness and malaise. No neck stiffness. No trauma. No blood thinners. No chest pain or shortness of breath. No focal weakness. No paresthesia.. 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 - Infectious Disease History:: Denies. - Social history:: Smoking status: . - Family history:: not pertinent. - Hospitalizations: : No recent hospitalization is reported. ROS: 11:27 Constitutional: Negative for fever, chills, and weight loss, Neck: Negative for injury, rn pain, and swelling, Cardiovascular: Negative for chest pain, palpitations, and edema, Respiratory: Negative for shortness of breath, cough, wheezing, and pleuritic chest pain, Abdomen/GI: Negative for abdominal pain, nausea, vomiting, diarrhea, and constipation, Back: Negative for injury and pain, MS/Extremity: Negative for injury and deformity, Skin: Negative for injury, rash, and discoloration, Neuro: Negative for numbness, tingling, and seizure, Exam: 11:27 Constitutional: This is a well developed, well nourished patient who is awake, alert, rn and in no acute distress. Ambulatory to room without difficulty or assistance Head/Face: Normocephalic, atraumatic. Neck: No meningismus Cardiovascular: Regular rate and rhythm. No pulse deficits. Respiratory: No increased work of breathing, no retractions or nasal flaring. MS/ Extremity: Pulses equal, no cyanosis. Neurovascular intact. Full, normal range of motion. Equal circumference. Neuro: Awake and alert, GCS 15, oriented to person, place, time, and situation. Slow speech but appropriate. Cranial nerves II-XII grossly intact. Motor strength 5/5 in all extremities. Sensory grossly intact. Cerebellar exam normal. Normal gait. 12:34 ECG was reviewed by the Attending Physician. rn Vital Signs: 10:22 BP 140 / 91; Pulse 90; Resp 17; Temp 97.8(O); Pulse Ox 100% on R/A; MAP 105 mmHg; tm6 10:22 Pain 6/10; tm6 10:26 Weight 104.33 kg; Height 5 ft. 6 in. ; tm6 11:32 BP 134 / 88; Pulse 86; Resp 17; Pulse Ox 99% on R/A; ap3 12:15 BP 134 / 84; Pulse 85; Resp 17; Pulse Ox 100% on R/A; ap3 10:26 Body Mass Index 37.12 (104.33 kg, 167.64 cm) tm6 10:22 Pain Scale: Adult tm6 Yanet Coma Score: 13:00 Eye Response: spontaneous(4). Motor Response: obeys commands(6). Verbal Response: rn oriented(5). Total: 15. MDM: 10:20 Medical Screening Exam initiated rn 13:00 Differential diagnosis: hypertensive headache, intracerebral hemorrhage, migraine, rn subarachnoid bleed, tension headache, vasomotor headache. Data reviewed: vital signs, nurses notes, lab test result(s), radiologic studies, and as a result, I will discharge patient. Counseling: I had a detailed discussion with the patient and/or guardian regarding the historical points, exam findings, and any diagnostic results supporting the discharge/admit diagnosis, lab results, radiology results, the need for outpatient follow up, to return to the emergency department if symptoms worsen or persist or if there are any questions or concerns that arise at home. Special discussion: I discussed with the patient/guardian in detail that at this point there is no indication for admission to the hospital. It is understood, however, that if the symptoms persist or worsen the patient needs to return immediately for re-evaluation. Based on the history and exam findings, there is no indication for further emergent testing or inpatient evaluation. I discussed with the patient/guardian the need to see the neurologist for further evaluation of the symptoms. ED course: No acute findings and workup. CT head without acute finding. Reviewed results from hospitalization and MRI did not show evidence of stroke. Possible that this is complicated migraine given headache. Normal vital signs. Patient feels better. Will have her follow-up with neurology. Actually has follow-up appointment this afternoon at 2 PM.. 10/14 10:34 Order name: Basic Metabolic Panel; Complete Time: :10/14 10:34 Order name: CBC with Diff; Complete Time: 10/14 10:34 Order name: Hepatic Function; Complete Time: 10/14 10:34 Order name: Magnesium; Complete Time: 10/14 10:34 Order name: Protime (+inr); Complete Time: 12:10/14 10:34 Order name: Ptt, Activated; Complete Time: :10/14 10:34 Order name: Troponin High Sensitivity; Complete Time: 12:10/14 10:34 Order name: Urinalysis w/ reflexes; Complete Time: :10/14 10:34 Order name: CT Head Brain wo Cont; Complete Time: 10/14 10:34 Order name: Chest Single View XRAY; Complete Time: 10/14 10:34 Order name: Cardiac monitoring; Complete Time: :10/14 10:34 Order name: EKG - Nurse/Tech; Complete Time: 10/14 10:34 Order name: IV Saline Lock; Complete Time: 17 10:34 Order name: Labs collected and sent; Complete Time: 11: rn 10/14 10:34 Order name: O2 Per Protocol; Complete Time: 11: rn 10/14 10:34 Order name: O2 Sat Monitoring; Complete Time: 11: rn EC:34 Rate is 68 beats/min. Rhythm is regular. QRS [place] is Normal. PA interval is normal. QRS rn interval is normal. QT interval is normal. No Q waves. T waves are Normal. No ST changes noted. Clinical impression: Normal ECG. Interpreted by me. Reviewed by me. Administered Medications: 11: Drug: NS 0.9% IV 500 ml 500 ml IV at 1 bolus once; to be given as a bolus over 30 ap3 minutes Volume: 500 ml; Route: IV; Rate: 1 bolus; Site: left antecubital; 12:29 Follow up: IV Status: Completed infusion ap3 Disposition Summary: 10/14/24 13:01 Discharge Ordered Notes: Location: Home rn Problem: an ongoing problem rn Symptoms: have improved rn Condition: Stable rn Diagnosis - Headache rn - Dizziness and giddiness rn Followup: rn - With: Private Physician - When: As needed - Reason: Recheck today's complaints, Re-evaluation by your physician Discharge Instructions: - Discharge Summary Sheet rn - Dizziness rn - General Headache Without Cause rn Forms: - Medication Reconciliation Form rn - 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 EDMS EDMS 10:35 10:35 CBC+H.LAB.BRZ ordered. EDMS EDMS 10:35 10:35 HEPATIC FUNCTION+C.LAB.BRZ ordered. EDMS EDMS 10:35 10:35 MAGNESIUM+C.LAB.BRZ ordered. EDMS EDMS 10:35 10:35 PROTIME (+INR)+COAG.LAB.BRZ ordered. EDMS EDMS 10:35 10:35 PTT, ACTIVATED+COAG.LAB.BRZ ordered. EDMS EDMS 10:35 10:35 Troponin High Sensitivity+C.LAB.BRZ ordered. EDMS EDMS 10:35 10:35 Urinalysis+U.LAB.BRZ ordered. EDMS EDMS 10:35 10:35 Head Brain Wo Cont+CT.RAD.BRZ ordered. EDMS EDMS 10:35 10:35 Chest Single View+RAD.RAD.BRZ ordered. EDMS EDMS
[2024-10-14 13:25] VITALS: TEMP 97.8
[2024-10-14 13:29] VITALS: BP 134/84; O2SAT 100
--- NOTE | 2024-10-16 11:33 | EKG ---
Test Date: 2024-10-14 Test Time: 11:24:45 Nursing Resident: ALP MEASUREMENT RESULTS: Intervals: Rate: 68 GA: 152 QRSD: 80 QT: 386 QTc: 410 [place]: P: 49 GA: 152 QRS: 45 T: 27 INTERPRETIVE STATEMENTS: Normal sinus rhythm with sinus arrhythmia Normal ECG Compared to ECG 10/09/2024 15:54:19 No significant changes Electronically Signed On 10-16-24 11:30:16 FURNITURE DETAILER by Agustín Gonzalez
== END 2024-10-14 13:21 | disposition home or self-care (01) ==
LOC: ER 10:11
DX: R51.9 Headache, unspecified (principal); R42 Dizziness and giddiness; Z86.73 Personal history of transient ischemic attack (TIA), and cerebral infarction without residual deficits
CPT/HCPCS: 85025; 81001; 80048; 36415; 83735; 85610; 80076; 85730; 84484; 70450; 71045; 96360; 99285; J7030; 93005

== ENCOUNTER 2024-11-08 15:49 | Emergency (ER) | payer OTHER ==
[2024-11-08 17:59] LABS: SARS-CoV-2 Antigen CONTROL BLUE LINE VIS/BG OK; SARS-CoV-2 Antigen Rapid Res Negative (Negative)
--- NOTE | 2024-11-08 18:30 | EDPHYS ---
Physician Documentation [facility] Name: Genet Webb Age: 29 yrs Sex: Female : 1995 Arrival Date: 11/08/2024 Time: 15:49 Bed DIS1 Private MD: ED Physician Umberto Feliz HPI: 11/08 17:45 This 29 yrs old Female presents to ER via Ambulatory with complaints of Nasal cp Congestion, bodyaches, Fever, Doesn't Feel Right, Shortness Of Breath. 17:45 The patient or guardian reports cough, that is intermittent, with productive sputum. cp Onset: The symptoms/episode began/occurred 3 day(s) ago. Severity of symptoms: in the emergency department the symptoms are unchanged, despite home interventions. Associated signs and symptoms: Pertinent positives: sore throat, congestion. 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 - Infectious Disease History:: Denies. - Social history:: Smoking status: Patient denies any tobacco usage or history of. ROS: 17:50 Constitutional: Positive for body aches, Negative for fever, poor PO intake, cp 17:50 Respiratory: Positive for cough, shortness of breath, Negative for wheezing, cp 17:50 Abdomen/GI: Negative for abdominal pain, vomiting, diarrhea, constipation, 17:50 Eyes: Negative for injury, pain, redness, and discharge, cp 17:50 Neuro: Negative for altered mental status, cp 17:50 All other systems are negative, Exam: 17:55 Constitutional: The patient appears in no acute distress, alert, awake, non-toxic, well cp developed, well nourished, obese, 17:55 Head/Face: Normocephalic, atraumatic. cp 17:55 Eyes: Periorbital structures: appear normal, Conjunctiva: normal, no exudate, no injection, Sclera: no appreciated abnormality, Lids and lashes: appear normal, bilaterally, 17:55 ENT: External ear(s): are unremarkable, Nose: is normal, Mouth: Lips: moist, Oral mucosa: moist, Posterior pharynx: Airway: no evidence of obstruction, patent, erythema, that is mild, exudate, is not appreciated, 17:55 Chest/axilla: Inspection: normal, 17:55 Cardiovascular: Rate: normal, 17:55 Respiratory: the patient does not display signs of respiratory distress, Respirations: normal, no use of accessory muscles, no retractions, labored breathing, is not present, Breath sounds: decreased breath sounds, are not appreciated, stridor, is not appreciated, wheezing: is not appreciated, 17:55 Abdomen/GI: Exam negative for discomfort, distension, guarding, Inspection: abdomen appears normal, Vital Signs: 16:04 BP 126 / 80; Pulse 84; Resp 17; Temp 97.3; Pulse Ox 100% on R/A; Weight 104.33 kg; ll1 Height 5 ft. 6 in. ; Pain 6/10; 18:00 BP 124 / 76; Pulse 83; Resp 16; Temp 98.6; Pulse Ox 100% ; me1 16:04 Body Mass Index 37.12 (104.33 kg, 167.64 cm) ll1 16:04 Pain Scale: Adult ll1 MDM: 16:09 Medical Screening Exam initiated cp 18:00 Differential Diagnosis: Bronchitis Influenza Pharyngitis Otitis Media Pneumonia. cp 18:29 Data reviewed: vital signs, nurses notes, lab test result(s), and as a result, I will cp discharge patient. 18:29 Counseling: I had a detailed discussion with the patient and/or guardian regarding the cp historical points, exam findings, and any diagnostic results supporting the discharge/admit diagnosis, lab results, to return to the emergency department if symptoms worsen or persist or if there are any questions or concerns that arise at home. 11/08 16:16 Order name: SARS RAPID; Complete Time: 18:11 cp 11/08 16:16 Order name: Influenza Screen (a \T\ B); Complete Time: 18:11 cp 11/08 16:16 Order name: Strep cp 11/08 16:16 Order name: RSV; Complete Time: 18:11 cp Administered Medications: No medications were administered Disposition Summary: 11/08/24 18:29 Discharge Ordered Notes: Location: Home cp Problem: new cp Symptoms: are unchanged cp Condition: Stable cp Diagnosis - Cough cp Followup: cp - With: Private Physician - When: 2 - 3 days - Reason: Worsening of condition Discharge Instructions: - Discharge Summary Sheet cp - Cough, Adult cp Forms: - Medication Reconciliation Form cp - Antibiotic Education cp - Prescription Opioid Use cp - Patient Portal Instructions cp - Leadership Thank You Letter cp Prescriptions: - Bromfed DM 2-30-10 mg/5 mL Oral syrup - administer 10 milliliter ORAL route every 6 hours as needed for cough; 240 cp milliliter; Refills: 0, Product Selection Permitted Signatures: Dispatcher [employer] EDMS Aneudy Mcclain PA PA cp Erin Herrera RN RN ll1 Glenis Gregorio RN RN me1 Corrections: (The following items were deleted from the chart) 16:16 16:16 SARS-COV-2 Antigen Rapid+I.LAB.BRZ ordered. EDMS EDMS 16:16 16:16 Influenza Screen (A \T\ B)+BA.LAB.BRZ ordered. EDMS EDMS 16:16 16:16 Group A Streptococcus Rapid Sc+BA.LAB.BRZ ordered. EDMS EDMS 16:16 16:16 Respiratory Syncytial Virus Ag+BA.LAB.BRZ ordered. EDMS EDMS
--- NOTE | 2024-11-08 18:30 | ER ---
Nurse's Notes [facility] Name: Genet Webb Age: 29 yrs Sex: Female : 1995 Arrival Date: 11/08/2024 Time: 15:49 Bed DIS1 Private MD: Diagnosis: Cough Presentation: 11/08 16:04 Chief complaint: Patient states: Congestion, cough, body aches, fever, SOB for 2-3 ll1 days. Coronavirus screen: Client denies travel out of the [place] in the last 14 days. congestion, cough unrelated to allergies, fatigue, fever, headache, shortness of breath, Client presents with at least one sign or symptom that may indicate coronavirus-19. Standard/surgical mask placed on the client. Ebola Screen: Patient denies travel to an Ebola-affected area in the 21 days before illness onset. Initial Sepsis Screen: Does the patient meet any 2 criteria? No. Patient's initial sepsis screen is negative. Does the patient have a suspected source of infection? No. Patient's initial sepsis screen is negative. Risk Assessment: Do you want to hurt yourself or someone else? Patient reports no desire to harm self or others. Onset of symptoms was November 06, 2024. 16:04 Method Of Arrival: Ambulatory ll1 16:04 Acuity: KETURAH 4 ll1 Triage Assessment: 16:06 General: Appears in no apparent distress. Behavior is calm, cooperative, appropriate ll1 for age. General: Reports fever for fatigue for. EENT: Reports nasal congestion. Respiratory: Reports shortness of breath cough that is. Respiratory: Onset: The symptoms/episode began/occurred yesterday, the patient has mild shortness of breath. CLOTH HANDLER: 18:36 LMP N/A - control method, Not me1 Historical: - Allergies: 16:06 No Known Allergies; ll1 - PMHx: 16:06 adhd; Anxiety; Cerebrovascular accident; depressive disorder; ll1 - PSHx: 16:06 None; ll1 - Immunization history:: Adult Immunizations up to date. - Infectious Disease History:: Denies. - Social history:: Smoking status: Patient denies any tobacco usage or history of. Screenin:10 [facility] ED Fall Risk Assessment (Adult) History of falling in the last 3 months, me1 including since admission No falls in past 3 months (0 pts) Confusion or Disorientation No (0 pts) Intoxicated or Sedated No (0 pts) Impaired Gait No (0 pts) Mobility Assist Device Used No (0 pt) Altered Elimination No (0 pt) Score/Fall Risk Level 0 - 2 = Low Risk Maintained a safe environment, Provided non-skid footwear, Hourly rounding (assess needs \T\ fall precautionary measures) done. Abuse screen: Denies threats or abuse. Nutritional screening: No deficits noted. Tuberculosis screening: No symptoms or risk factors identified. Assessment: 17:10 General: Appears uncomfortable, obese, well groomed, well developed, Behavior is calm, me1 cooperative, appropriate for age, Reports Congestion, cough, body aches, fever, SOB for 2-3 days. Pain: Denies pain. Neuro: Level of Consciousness is awake, alert, obeys commands, Oriented to person, place, time, situation, Appropriate for age. Cardiovascular: Patient's skin is warm and dry. Rhythm is regular. Respiratory: Reports shortness of breath at rest since 2-3 days ago cough that is persistent Airway is patent Respiratory effort is even, unlabored, Respiratory pattern is regular, symmetrical, Breath sounds are clear bilaterally. GI: No signs and/or symptoms were reported involving the gastrointestinal system. : No signs and/or symptoms were reported regarding the genitourinary system. EENT: Reports nasal congestion since 2-3 days ago. Derm: Skin is intact, is healthy with good turgor, Skin is pink, warm \T\ dry. Musculoskeletal: No signs and/or symptoms reported regarding the musculoskeletal system. Reports generalized body aches. Vital Signs: 16:04 BP 126 / 80; Pulse 84; Resp 17; Temp 97.3; Pulse Ox 100% on R/A; Weight 104.33 kg; ll1 Height 5 ft. 6 in. ; Pain 6/10; 18:00 BP 124 / 76; Pulse 83; Resp 16; Temp 98.6; Pulse Ox 100% ; me1 16:04 Body Mass Index 37.12 (104.33 kg, 167.64 cm) ll1 16:04 Pain Scale: Adult ll1 ED Course: 15:52 Patient arrived in ED. am2 16:06 Triage completed. ll1 16:06 Arm band placed on. ll1 16:09 Aneudy Mcclain PA is PHCP. cp 16:09 Umberto Feliz MD is Attending Physician. cp 17:00 Glenis Gregorio, RN is Primary Nurse. me1 17:00 RSV Sent. me1 17:00 Strep Sent. me1 17:00 Influenza Screen (a \T\ B) Sent. me1 17:00 SARS RAPID Sent. me1 17:00 COVID swab sent to lab. Flu and/or RSV swab sent to lab. Strep swab sent to lab. me1 17:10 Patient has correct armband on for positive identification. Bed in low position. Call me1 light in reach. Side rails up X2. Provided Education on: POC. Verbalized understanding.. 17:10 No provider procedures requiring assistance completed. Patient did not have IV access me1 during this emergency room visit. Administered Medications: No medications were administered Medication: 17:10 VIS not applicable for this client. me1 Outcome: 18:29 Discharge ordered by MD. cp 18:37 Discharged to home ambulatory, me1 18:37 Condition: stable 18:37 Discharge instructions given to patient, Instructed on discharge instructions, follow up and referral plans. medication usage, Demonstrated understanding of instructions, follow-up care, medications, Prescriptions given X 1, 18:37 Patient left the ED. me1 Signatures: Aneudy Mcclain PA PA Charmaine Wasserman am2 Erin Herrera, FRANCA RN 1 Glenis Gregorio, RN RN me1 Corrections: (The following items were deleted from the chart) 17:51 16:04 Chief complaint: Patient states: Congestion, cough, body aches, fever, SOB for me1 2-3 days. 1
[2024-11-11 15:30] VITALS: BP 124/76; TEMP 98.6; O2SAT 100
== END 2024-11-08 18:37 | disposition home or self-care (01) ==
LOC: ER 15:49
DX: R05.9 Cough, unspecified (principal); F90.9 Attention-deficit hyperactivity disorder, unspecified type; F41.9 Anxiety disorder, unspecified; Z86.73 Personal history of transient ischemic attack (TIA), and cerebral infarction without residual deficits; F32.A Depression, unspecified
CPT/HCPCS: 36415; 87070; 87081; 87804; 87807; 87811; 99283

== ENCOUNTER 2025-02-04 18:16 | Emergency (ER) | payer OTHER ==
--- NOTE | 2025-02-04 18:50 | RAD REPORT ---
EXAM: CT Ct Stroke Brain Wo Cont HISTORY: STROKE ALERT. Dizzy, hot, cold sweats, nauseous, right arm tingling and right facial numbnes s COMPARISON: 10/14/2024 TECHNIQUE: Multiple contiguous axial images were obtained for a CT of the brain without contrast. Sag ittal and coronal reformats were performed. One or more of the following dose reduction techniques were used: Automated exposure control, adjus tment of the mA and kV according to patient size, and iterative reconstruction. Unless otherwise specified, incidental findings do not require dedicated imaging follow-up. FINDINGS: No evidence of hydrocephalus, intracranial hemorrhage, or extra-axial fluid collection. The brain is normal in morphology. The calvarium is intact. The visualized paranasal sinuses and mastoid air cells are essentially clear . IMPRESSION: No evidence of acute intracranial abnormality.
[2025-02-04 18:56] LABS: Absolute Eosinophils 0.1 K/uL (0-0.5); Absolute Lymphocytes (CBC) 1.3 K/uL (0.7-4.9); Absolute Monocytes 0.6 K/uL (0.1-1.3); Absolute Neutrophil 5.8 K/uL (1.8-8.0); Basophils % 0.3 % (0-1.3); Eosinophils % 0.7 % (0-4.4); Hematocrit 38.4 % (36.0-45.0); Hemoglobin 13.5 g/dL (12.0-15.0); Lymphocytes % 16.1 % (15.3-44.8); MCH 30.9 pg (27.0-35.0); MCHC 35.2 g/dL (32.0-36.0); MCV 87.7 fL (80-100); MPV 8.4 fL (7.6-11.3); Monocytes % 8.3 % (3.3-12.3); Neutrophils % 74.6 % (41.7-73.7); Nucleated Red Blood Cells % 0.1 % (0-0); Platelets 221 thou/uL (152-406); RBC Red Blood Cell Count 4.38 M/uL (3.86-4.86); Red Cell Distribution Width 13.4 % (12.1-15.2)
--- NOTE | 2025-02-04 18:59 | RAD REPORT ---
EXAMINATION: CT Neck Angio CLINICAL INDICATION: Female, 30 years old. [facility] MAIN dizzines Bed Name: [facility] TECHNIQUE: Axial CT images were obtained from the aortic arch to the skull base after intravenous con trast utilizing angiographic protocol. Multiplanar reformats, as well as 3D post-processing (maximum intensity projection images, volume rendered images and/or shaded surface rendered images) w ere generated and reviewed. One or more of the following dose reduction techniques were used: Automated exposure control, adjustment of the mA and/or kV according to patient size, and/or iterativ e reconstruction. Unless otherwise specified, incidental findings do not require dedicated imaging follow-up. COMPARISON: No prior exam. FINDINGS: AORTA: The imaged aortic arch is normal. Normal three-vessel configuration of the arch. CCA: No artifact The common carotid arteries are patent and normal in caliber. ICA/ECA: Bilateral internal and external carotid arteries are patent. There is no significant interna l carotid artery stenosis. VERTEBRAL: Focal mild narrowing of the left vertebral artery at proximal C3 level, which may relate t o tortuosity, atherosclerotic change, less likely dissection. The cervical vertebral arteries are otherwise patent to the skull base. Right vertebral artery is dominant. SOFT TISSUE: No significant neck soft tissue abnormalities. The visualized lung apices are clear. 3D images confirm these findings. IMPRESSION: Focal mild narrowing of the left vertebral artery at proximal C3 level, which may relate to tortuosit y, atherosclerotic change, less likely dissection. No other significant flow abnormality of the neck vessels is identified. NASCET criteria used to quantify ICA stenosis, with the following grading scheme: Mild 0-49% stenosis Moderate 50-69% stenosis Severe 70-99% stenosis Reference: [place] Symptomatic Carotid Endarterectomy Trial Collaborators; Mitra EATON, Charla BENNETT, Elisabeth RB, et al. Beneficial effect of carotid endarterectomy in symptomatic patients with high-grade carotid stenosis. N Engl J Med. 1990Jun 12;325(7):445-53.
[2025-02-04 19:04] LABS: PT Prothrombin Time 10.7 SECONDS (10-13.0); PTT, Activated Partial Thromb 32.3 SECONDS (27.2-37.4); Protime INR 0.94
--- NOTE | 2025-02-04 19:07 | RAD REPORT ---
EXAMINATION: CTA HEAD CLINICAL INDICATION: Female, 30 years old. dizzines TECHNIQUE: Axial CT images were obtained through the head after intravenous contrast utilizing angiog raphic protocol with 3D post-processing (maximum intensity projection images, volume rendered images and/or shaded surface rendered images). One or more of the following dose reduction technique s were used: Automated exposure control, adjustment of the mA and/or kV according to patient size, and/or iterative reconstruction. Unless otherwise specified, incidental findings do not require dedic ated imaging follow-up. COMPARISON: 10/09/2024. FINDINGS: ICA: The petrous, cavernous, and supraclinoid segments of the bilateral internal carotid arteries are patent. Fusiform dilation of the left cavernous ICA measuring 5 mm in caliber. Prominent opacification within the cavernous sinuses somewhat limits evaluation. BETITO: Anterior cerebral arteries are normal bilaterally. The anterior communicating artery is patent. MCA: Middle cerebral arteries are normal bilaterally. GIFTS OFFICER: Posterior cerebral arteries are normal bilaterally. Vertebrobasilar: Diminutive caliber of the intradural left vertebral artery, favored to be developmen tino, most pronounced distally following the takeoff of the left PICA. Right vertebral artery is patent and dominant. The basilar artery is normal in appearance. 3D images confirm these findings. IMPRESSION: No evidence of large vessel occlusion. Diminutive caliber of the intradural left vertebral artery most pronounced distally following left PI CA takeoff, favored to be developmental. Ectasia or mild fusiform dilation of the left cavernous ICA, up to 5 mm in caliber. CTA head and neck findings are essentially stable compared to prior imaging.
[2025-02-04 19:14] LABS: Anion Gap 7.4 mEq/L (5.0-15.0); BUN Blood Urea Nitrogen 13 mg/dL (7-18); Bicarbonate 28 mEq/L (21-32); Glomerular Filtration Rate 66 ml/min (=/>90); Glucose Level 88 mg/dL (74-106); Magnesium 1.9 mg/dL (1.6-2.4); Potassium 3.4 mEq/L (3.5-5.1); Sodium Level 138 mEq/L (136-145); Troponin High Sensitivity < 3.0 pg/mL (<58.9)
[2025-02-04] MEDS ORDERED: MIDAZOLAM HCL 2 MG/2 ML INJ ONE (19:26)
[2025-02-04] MEDS ORDERED: MECLIZINE HCL 12.5 MG TAB ONE (19:26)
[2025-02-04] MEDS ORDERED: TOPIRAMATE 25 MG TAB ONE (19:30)
--- NOTE | 2025-02-04 20:24 | EDPHYS ---
Physician Documentation [facility] Name: Genet Webb Age: 30 yrs Sex: Female : 1995 Arrival Date: 02/04/2025 Time: 18:16 Bed [id number] Private MD: ED Physician Praneeth Mae HPI: 02/04 21:36 This 30 yrs old Female presents to ER via Ambulatory with complaints of S/S of Possible ms3 Stroke. 21:36 30-year-old female past medical history of ADHD, anxiety, CVA, depression presents to [facility] the emergency department for dizziness, sweating, nausea, near syncope that occurred approxi-1 hour prior to arrival. Patient notes she had a CVA in June. Patient states she is having right arm tingling. Patient notes she is on aspirin daily. Patient states her symptoms began at 5:20 PM. Historical: - Allergies: 18:25 No Known Allergies; iw - PMHx: 18:25 adhd; Anxiety; Cerebrovascular accident; depressive disorder; iw ROS: 21:36 Constitutional: Negative for fever, and chills. Cardiovascular: Negative for chest ms3 pain, and palpitations. Respiratory: Negative for shortness of breath, cough, wheezing, and pleuritic chest pain, MS/Extremity: Negative for injury and deformity, Skin: Negative for injury, rash, and discoloration, 21:36 Neuro: Positive for dizziness, 21:36 Abdomen/GI: Positive for nausea, ms3 21:36 Neuro: Positive for near syncope, Exam: 21:36 Radiologist reports: Negative acute ms3 21:36 Constitutional: This is a well developed, well nourished patient who is awake, alert, and in no acute distress. Neck: Trachea midline, no cervical lymphadenopathy. Supple, full range of motion without nuchal rigidity, or vertebral point tenderness. No Meningismus. Chest/axilla: Normal chest wall appearance and motion. Nontender with no deformity. Cardiovascular: Regular rate and rhythm with a normal S1 and S2. No gallops, murmurs, or rubs. Normal PMI, no JVD. No pulse deficits. Respiratory: Lungs have equal breath sounds bilaterally, clear to auscultation and percussion. No rales, rhonchi or wheezes noted. No increased work of breathing, no retractions or nasal flaring. Abdomen/GI: Soft, non-tender, with normal bowel sounds. No distension or tympany. No guarding or rebound. No evidence of tenderness throughout. Skin: Warm, dry with normal turgor. Normal color with no rashes, no lesions, and no evidence of cellulitis. MS/ Extremity: Pulses equal, no cyanosis. Neurovascular intact. Full, normal range of motion. 21:36 Neuro: Orientation: is normal, to person, place, time \T\ situation. Mentation: is normal, Memory: is normal, Cranial nerves: CN I not tested, CN II- XII are normal as tested, Cerebellar function: is grossly normal, normal finger to nose testing, heel to rodriguez testing is normal, Motor: is normal, Sensation: is normal, Abnormal movements: there are no abnormal movements, 22:18 ECG was reviewed by the Attending Physician. ms3 Vital Signs: 18:23 BP 142 / 88; Pulse 93; Resp 18; Temp 98.7; Pulse Ox 100% on R/A; iw 20:30 BP 137 / 91; Pulse 86; Resp 19; Pulse Ox 99% on R/A; al5 NIH Stroke Scale Scores: 18:53 NIHSS Score: 0 ms3 19:07 NIHSS Score: 0 al5 MDM: 18:31 Medical Screening Exam initiated ms3 19:09 TNKase (Tenecteplase) Screening: Contraindications: Other: Discussed TNKase with ms3 patient and her mother. Through shared decision making patient decided to not receive TNKase. NIH = 0. Discussed with patient that if this is stroke symptoms may remain permanently without TNKase. ED course: Discussed case with Dr Eason and he agrees with patient's decision. Recommends Topamax 25 mg, in addition to Meclizine and Versed. Patient states she is currently under a significant amount of stress.. 21:36 Differential diagnosis: CVA, TIA, Migraine. Data reviewed: vital signs, nurses notes, ms3 lab test result(s), EKG, radiologic studies, and as a result, I will discharge patient. Consideration of Admission/Observation Escalation of care including admission/observation considered. Patient symptoms improved and patient requested to be discharged. Management of patient was discussed with the following: Oracle Database Administrator: Case discussed with Dr. Eason and he recommends Topamax 25 mg nightly. Patient to follow-up in clinic. I considered the following discharge prescriptions or medication management in the emergency department Medications were administered in the Emergency Department. See MAR. Independent interpretation of the following test(s) in the Emergency Department EKG: See my EKG interpretation above. Historians other than the Patient: Patient's mother. Counseling: I had a detailed discussion with the patient and/or guardian regarding the historical points, exam findings, and any diagnostic results supporting the discharge/admit diagnosis, lab results, radiology results, the need for outpatient follow up, to return to the emergency department if symptoms worsen or persist or if there are any questions or concerns that arise at home. Special discussion: I discussed with the patient/guardian in detail that at this point there is no indication for admission to the hospital. It is understood, however, that if the symptoms persist or worsen the patient needs to return immediately for re-evaluation. ED course: On reevaluation patient requesting to be discharged stating her symptoms have improved. Patient to follow-up with Dr. Eason in 2 to 3 days. Patient understands and agrees with plan. All questions were answered. Return precautions discussed include worsening symptoms, or any other concerns. Patient given prescription for Topamax 25 mg to be taken at bedtime. On reevaluation patient is alert and oriented x 4, in no apparent distress, nontoxic-appearing, speaking full sentences. 02/04 18:29 Order name: Basic Metabolic Panel; Complete Time: 19:22 ms3 02/04 18:29 Order name: CBC with Diff; Complete Time: 19:00 ms3 02/04 18:29 Order name: High Sensitivity Troponin; Complete Time: 19:22 ms3 02/04 18:29 Order name: Magnesium; Complete Time: 19:22 ms3 02/04 18:29 Order name: Protime (+inr); Complete Time: 19:12 ms3 02/04 18:29 Order name: Ptt, Activated; Complete Time: 19:12 ms3 02/04 19:30 Order name: Glucose, Ancillary Testing; Complete Time: 20:11 EDMS 02/04 18:29 Order name: CT Head Angio; Complete Time: 19:12 ms3 02/04 18:29 Order name: CT Neck Angio; Complete Time: 19:00 ms3 02/04 18:29 Order name: CT Stroke Brain w/o Contrast; Complete Time: 19:12 ms3 02/04 18:29 Order name: Stroke CXR 1 View; Complete Time: 20:51 ms3 02/04 18:29 Order name: Accucheck; Complete Time: 19:19 ms3 02/04 18:29 Order name: Cardiac monitoring; Complete Time: 19:19 ms3 02/04 18:29 Order name: EKG - Nurse/Tech; Complete Time: 19:19 ms3 02/04 18:29 Order name: IV Saline Lock; Complete Time: 18:51 ms3 02/04 18:29 Order name: Labs collected and sent; Complete Time: 19:19 ms3 02/04 18:29 Order name: NPO; Complete Time: 19:19 ms3 02/04 18:29 Order name: O2 Per Protocol; Complete Time: 19:19 ms3 02/04 18:29 Order name: O2 Sat Monitoring; Complete Time: 19:19 ms3 02/04 18:29 Order name: Stroke Swallow Screen; Complete Time: 19:44 ms3 EC:18 Rate is 86 beats/min. Rhythm is regular. QRS [place] is Normal. AL interval is normal. QRS ms3 interval is normal. Clinical impression: NSR w/ Non-specific ST/T Changes. Interpreted by me. Reviewed by me. Administered Medications: 19:37 Drug: Meclizine PO 50 mg PO once Route: PO; al5 20:59 Follow up: Response: No adverse reaction; Marked relief of symptoms al5 19:37 Drug: Midazolam IVP or IV 2 mg IVP once Route: IVP; Site: right antecubital; al5 20:59 Follow up: Response: No adverse reaction; Marked relief of symptoms al5 19:37 Drug: Topamax PO 25 mg PO once Route: PO; al5 20:59 Follow up: Response: No adverse reaction; Marked relief of symptoms al5 Point of Care Testing: Blood Glucose: 19:10 Blood Glucose: 102 mg/dL; al5 Ranges: Critical Glucose Levels:Adult <50 mg/dl or >400 mg/dl <40 mg/dl or >180 mg/dl Disposition Summary: 02/04/25 20:23 Discharge Ordered Notes: Location: Home ms3 Condition: Stable ms3 Diagnosis - Headache ms3 - Dizziness ms3 Followup: ms3 - With: Aurelio Eason MD - When: 1 - 2 days - Reason: Recheck today's complaints Discharge Instructions: - Discharge Summary Sheet ms3 - General Headache Without Cause ms3 - Dizziness, [id number] ms3 Forms: - Medication Reconciliation Form ms3 - Antibiotic Education ms3 - Prescription Opioid Use ms3 - Patient Portal Instructions ms3 - Leadership Thank You Letter ms3 Prescriptions: - Topamax 25 mg Oral tablet - take 1 tablet ORAL route every day at bedtime; 20 tablet; Refills: 0, Product ms3 Selection Permitted NIH Stroke Scale - NIH Stroke Score Date: 02/04/2025 Time: 18:53 Total Score = 0 10. Dysarthria (speech clarity - read or repeat words) - 0(Normal) 11. Extinction and Inattention (visual/tactile/auditory/spatial/personal) - 0(No abnormality) 1a. Level of Consciousness (LOC) - 0(Alert) 1b. Level of Consciousness (LOC) (Month \T\ Age) - 0(Both) 1c. LOC Commands (Open \T\ Closes Eyes/Varying Exceptionalities Teacher) - 0(Both) 2. Best Gaze (Lateral Gaze Paresis) - 0(Normal) 3. Visual Field Loss - 0(No visual loss) 4. Facial Palsy - 0(Normal) 5a. Left Arm: Motor (10-second hold) - 0(No drift) 5b. Right Arm: Motor (10-second hold) - 0(No drift) 6a. Left Leg: Motor (5-second hold - always test supine) - 0(No drift) 6b. Right Leg: Motor (5-second hold - always test supine) - 0(No drift) 7. Limb Ataxia (finger/nose \T\ heel/rodriguez - test with eyes open) - 0(Absent) 8. Sensory Loss (pinprick arms/legs/face) - 0(Normal) 9. Best Language: Aphasia (description/naming/reading) - 0(No aphasia) Initials: ms3 NIH Stroke Scale - NIH Stroke Score Date: 02/04/2025 Time: 19:07 Total Score = 0 10. Dysarthria (speech clarity - read or repeat words) - 0(Normal) 11. Extinction and Inattention (visual/tactile/auditory/spatial/personal) - 0(No abnormality) 1a. Level of Consciousness (LOC) - 0(Alert) 1b. Level of Consciousness (LOC) (Month \T\ Age) - 0(Both) 1c. LOC Commands (Open \T\ Closes Eyes/Varying Exceptionalities Teacher) - 0(Both) 2. Best Gaze (Lateral Gaze Paresis) - 0(Normal) 3. Visual Field Loss - 0(No visual loss) 4. Facial Palsy - 0(Normal) 5a. Left Arm: Motor (10-second hold) - 0(No drift) 5b. Right Arm: Motor (10-second hold) - 0(No drift) 6a. Left Leg: Motor (5-second hold - always test supine) - 0(No drift) 6b. Right Leg: Motor (5-second hold - always test supine) - 0(No drift) 7. Limb Ataxia (finger/nose \T\ heel/rodriguez - test with eyes open) - 0(Absent) 8. Sensory Loss (pinprick arms/legs/face) - 0(Normal) 9. Best Language: Aphasia (description/naming/reading) - 0(No aphasia) Initials: al5 Signatures: Dispatcher [employer] EDMS Mckayla Cross, FRANCA RN iw Praneeth Mea, DO DO ms3 Charmaine Lai RN RN al5 Corrections: (The following items were deleted from the chart) 18:29 18:29 BASIC METABOLIC PANEL+C.LAB.BRZ ordered. EDMS EDMS 18:29 18:29 CBC+H.LAB.BRZ ordered. EDMS EDMS 18:29 18:29 Troponin High Sensitivity+C.LAB.BRZ ordered. EDMS EDMS 18:29 18:29 MAGNESIUM+C.LAB.BRZ ordered. EDMS EDMS 18:29 18:29 PROTIME (+INR)+COAG.LAB.BRZ ordered. EDMS EDMS 18:29 18:29 PTT, ACTIVATED+COAG.LAB.BRZ ordered. EDMS EDMS 18:30 18:29 Head Angio+CT.RAD.BRZ ordered. EDMS EDMS 18:30 18:30 Neck Angio+CT.RAD.BRZ ordered. EDMS EDMS 18:30 18:30 CT-STROKE BRAIN W/O CONTRAST+CT.RAD.BRZ ordered. EDMS EDMS 18:30 18:30 Chest Single View+RAD.RAD.BRZ ordered. EDMS EDMS 21:38 21:36 Constitutional: Negative for fever, and chills. Cardiovascular: Negative ms3 for chest pain, and palpitations. Respiratory: Negative for shortness of breath, cough, wheezing, and pleuritic chest pain, Abdomen/GI: Negative for abdominal pain, nausea, vomiting, diarrhea, and constipation, MS/Extremity: Negative for injury and deformity, Skin: Negative for injury, rash, and discoloration, ms3
--- NOTE | 2025-02-04 20:24 | ER ---
Nurse's Notes [facility] Name: Genet Webb Age: 30 yrs Sex: Female : 1995 Arrival Date: 02/04/2025 Time: 18:16 Bed [id number] Private MD: Diagnosis: Headache;Dizziness Presentation: 02/04 18:23 Chief complaint: Patient states: I got really dizzy, hot, cold sweats, nauseous, iw started about an hour ago , also having right arm tingling and right facial numbness. 18:23 Method Of Arrival: Ambulatory iw 18:23 Acuity: KETURAH 3 iw 18:24 Coronavirus screen: At this time, the client does not indicate any symptoms associated iw with coronavirus-19. Ebola Screen: No symptoms or risks identified at this time. Initial Sepsis Screen: Does the patient meet any 2 criteria? No. Patient's initial sepsis screen is negative. Does the patient have a suspected source of infection? No. Patient's initial sepsis screen is negative. Risk Assessment: Do you want to hurt yourself or someone else? Patient reports no desire to harm self or others. 19:07 No acute neurological deficit is noted. Pre-hospital glucose is not applicable to this al5 patient. Onset of symptoms was February 04, 2025. Stroke Activation: Physician: ED Attending; Name: ; Notified At: ; Arrived At: Physician: Mid-Level Provider; Name: ; Notified At: ; Arrived At: Physician: [not used]; Name: ; Notified At: ; Arrived At: Physician: [not used]; Name: ; Notified At: ; Arrived At: Physician: [not used]; Name: ; Notified At: ; Arrived At: 19:07 n/a al5 Historical: - Allergies: 18:25 No Known Allergies; iw - PMHx: 18:25 adhd; Anxiety; Cerebrovascular accident; depressive disorder; iw Screenin:08 [facility] ED Fall Risk Assessment (Adult) History of falling in the last 3 months, al5 including since admission No falls in past 3 months (0 pts) Confusion or Disorientation No (0 pts) Intoxicated or Sedated No (0 pts) Impaired Gait No (0 pts) Mobility Assist Device Used No (0 pt) Altered Elimination No (0 pt) Score/Fall Risk Level 0 - 2 = Low Risk Oriented to surroundings, Maintained a safe environment, Hourly rounding (assess needs \T\ fall precautionary measures) done. Abuse screen: Denies threats or abuse. Denies injuries from another. Nutritional screening: No deficits noted. Tuberculosis screening: No symptoms or risk factors identified. Assessment: 19:07 VAN Scoring: Arm Drift: Patients demonstrates NO arm weakness. Patient is VAN Negative. al5 Visual Disturbance: No visual disturbance noted. Aphasia: No aphasia noted. Neglect: No neglect noted. Domonique Swallow Protocol Exclusion Criteria: Exclusion Criteria Result: Proceed Brief Cognitive Screen What is your name? Normal, Where are you right now? Normal, What year is it? Normal. Oral Mechanism Examination Facial Symmetry: Normal, Motion: Normal, Lip Closure: Normal, Oral Mechanism Result: Normal. 3 oz Water Swallow Challenge: Pt able to drink all water without stopping, coughing, choking or throat clearing: Yes Result: PASS MD Notified: Praneeth Mae DO. 19:07 General: Appears in no apparent distress. comfortable, Behavior is calm, cooperative. al5 Pain: Complains of pain in head. Neuro: Level of Consciousness is awake, alert, obeys commands, Oriented to person, place, time, situation, Director Of Research are equal bilaterally Moves all extremities. Full function Gait is steady, Speech is normal, Facial symmetry appears normal, Pupils are PERRLA, Intact Reports dizziness, headache paresthesias in right cheek and right jaw initially, sensation intact at this time. Cardiovascular: Capillary refill < 3 seconds Patient's skin is warm and dry. Rhythm is sinus rhythm. Respiratory: Airway is patent Respiratory effort is even, unlabored, Respiratory pattern is regular, symmetrical. GI: No signs and/or symptoms were reported involving the gastrointestinal system. : No signs and/or symptoms were reported regarding the genitourinary system. EENT: No signs and/or symptoms were reported regarding the EENT system. Derm: Skin is intact, is healthy with good turgor, Skin is pink, warm \T\ dry. normal. Musculoskeletal: No signs and/or symptoms reported regarding the musculoskeletal system. Capillary refill < 3 seconds, Range of motion: intact in all extremities. 19:30 TNKase (Tenecteplase) Screening: Not Applicable. al5 20:00 Reassessment: Patient appears in no apparent distress at this time. Patient and/or al5 family updated on plan of care and expected duration. Pain level reassessed. Patient is alert, oriented x 3, equal unlabored respirations, skin warm/dry/pink. Patient states feeling better. Patient states symptoms have improved. Vital Signs: 18:23 BP 142 / 88; Pulse 93; Resp 18; Temp 98.7; Pulse Ox 100% on R/A; iw 20:30 BP 137 / 91; Pulse 86; Resp 19; Pulse Ox 99% on R/A; al5 NIH Stroke Scale Scores: 18:53 NIHSS Score: 0 ms3 19:07 NIHSS Score: 0 al5 ED Course: 18:17 Patient arrived in ED. al6 18:21 Praneeth Mae DO is Attending Physician. ms3 18:24 Triage completed. iw 18:42 CT Stroke Brain w/o Contrast In Process Unspecified. EDMS 18:44 CT Head Angio In Process Unspecified. EDMS 18:45 CT Neck Angio In Process Unspecified. EDMS 18:50 Initial lab(s) drawn, by ED staff, sent to lab. db 18:51 Inserted saline lock: 20 gauge in right antecubital area, using aseptic technique. jl7 Blood collected. Flushed with 10 mL NS. 19:05 Patient moved back from CT. db 19:05 Arm band placed on Patient placed in an exam room. db 19:07 No provider procedures requiring assistance completed. al5 19:07 Patient has correct armband on for positive identification. Bed in low position. Call al5 light in reach. Side rails up X2. Provided Education on: medications. 19:19 Jocy Marcano RN is Primary Nurse. vc1 19:29 Stroke CXR 1 View In Process Unspecified. EDMS 19:45 Primary Nurse role handed off by Jocy Marcano, FRANCA al5 19:45 Charmaine Lai, FRANCA is Primary Nurse. al5 20:23 Aurelio Eason MD is Referral Physician. ms3 20:59 IV discontinued, intact, bleeding controlled, No redness/swelling at site. Pressure al5 dressing applied. Administered Medications: 19:37 Drug: Meclizine PO 50 mg PO once Route: PO; al5 20:59 Follow up: Response: No adverse reaction; Marked relief of symptoms al5 19:37 Drug: Midazolam IVP or IV 2 mg IVP once Route: IVP; Site: right antecubital; al5 20:59 Follow up: Response: No adverse reaction; Marked relief of symptoms al5 19:37 Drug: Topamax PO 25 mg PO once Route: PO; al5 20:59 Follow up: Response: No adverse reaction; Marked relief of symptoms al5 Medication: 19:08 VIS not applicable for this client. al5 Point of Care Testing: Blood Glucose: 19:10 Blood Glucose: 102 mg/dL; al5 Ranges: Outcome: 20:23 Discharge ordered by . ms3 20:59 Discharged to home ambulatory, al5 20:59 Condition: good 20:59 Discharge instructions given to patient, Instructed on discharge instructions, follow up and referral plans. medication usage, Demonstrated understanding of instructions, follow-up care, medications, Prescriptions given X 1, 21:40 Patient left the ED. al5 NIH Stroke Scale - NIH Stroke Score Date: 02/04/2025 Time: 18:53 Total Score = 0 10. Dysarthria (speech clarity - read or repeat words) - 0(Normal) 11. Extinction and Inattention (visual/tactile/auditory/spatial/personal) - 0(No abnormality) 1a. Level of Consciousness (LOC) - 0(Alert) 1b. Level of Consciousness (LOC) (Month \T\ Age) - 0(Both) 1c. LOC Commands (Open \T\ Closes Eyes/Optical Goods Drilling Machine Operator) - 0(Both) 2. Best Gaze (Lateral Gaze Paresis) - 0(Normal) 3. Visual Field Loss - 0(No visual loss) 4. Facial Palsy - 0(Normal) 5a. Left Arm: Motor (10-second hold) - 0(No drift) 5b. Right Arm: Motor (10-second hold) - 0(No drift) 6a. Left Leg: Motor (5-second hold - always test supine) - 0(No drift) 6b. Right Leg: Motor (5-second hold - always test supine) - 0(No drift) 7. Limb Ataxia (finger/nose \T\ heel/rodriguez - test with eyes open) - 0(Absent) 8. Sensory Loss (pinprick arms/legs/face) - 0(Normal) 9. Best Language: Aphasia (description/naming/reading) - 0(No aphasia) Initials: ms3 NIH Stroke Scale - NIH Stroke Score Date: 02/04/2025 Time: 19:07 Total Score = 0 10. Dysarthria (speech clarity - read or repeat words) - 0(Normal) 11. Extinction and Inattention (visual/tactile/auditory/spatial/personal) - 0(No abnormality) 1a. Level of Consciousness (LOC) - 0(Alert) 1b. Level of Consciousness (LOC) (Month \T\ Age) - 0(Both) 1c. LOC Commands (Open \T\ Closes Eyes/Optical Goods Drilling Machine Operator) - 0(Both) 2. Best Gaze (Lateral Gaze Paresis) - 0(Normal) 3. Visual Field Loss - 0(No visual loss) 4. Facial Palsy - 0(Normal) 5a. Left Arm: Motor (10-second hold) - 0(No drift) 5b. Right Arm: Motor (10-second hold) - 0(No drift) 6a. Left Leg: Motor (5-second hold - always test supine) - 0(No drift) 6b. Right Leg: Motor (5-second hold - always test supine) - 0(No drift) 7. Limb Ataxia (finger/nose \T\ heel/rodriguez - test with eyes open) - 0(Absent) 8. Sensory Loss (pinprick arms/legs/face) - 0(Normal) 9. Best Language: Aphasia (description/naming/reading) - 0(No aphasia) Initials: al5 Signatures: Dispatcher [employer] EDMS Mckayla Cross, FRANCA SCHULTE iw Rekha Shook RN RN jl7 Praneeth Mae, DO ms3 Jocy Marcano RN RN vc1 Lilly Mccarty, RN FRANCA db Charmaine Lai RN RN al5 Araceli Pike al6 Corrections: (The following items were deleted from the chart) 18:25 18:23 Chief complaint: Patient states: I got really dizzy, hot, cold sweats, iw nauseous, started about an hour ago , iw 19:43 19:07 Neuro: Level of Consciousness is awake, alert, obeys commands, Oriented al5 to person, place, time, situation, Director Of Research are equal bilaterally Moves all extremities. Full function Gait is steady, Speech is normal, Facial symmetry appears normal, Pupils are PERRLA, Intact Reports dizziness, headache paresthesias in right cheek and right jaw al5
--- NOTE | 2025-02-04 20:47 | RAD REPORT ---
EXAMINATION: ONE VIEW CHEST XR CLINICAL INDICATION: Female, 30 years old.,dizzines TECHNIQUE: Frontal chest projection is submitted. Examination is limited by patient positioning and t echnique. COMPARISON: 10/14/2024 FINDINGS: The lungs are well inflated and clear. No pneumothorax or sizable effusion. The heart is normal in s ize. Mediastinal contours are unremarkable. IMPRESSION: No acute intrathoracic abnormalities.
[2025-02-04 23:19] VITALS: TEMP 98.7
[2025-02-04 23:20] VITALS: BP 137/91; O2SAT 99
--- NOTE | 2025-02-05 11:46 | EKG ---
Test Date: 2025-02-04 Test Time: 19:14:07 Gang Investigator: BLAIR MEASUREMENT RESULTS: Intervals: Rate: 86 SD: 154 QRSD: 80 QT: 350 QTc: 418 [place]: P: 43 SD: 154 QRS: 35 T: 9 INTERPRETIVE STATEMENTS: Normal sinus rhythm Cannot rule out Anterior infarct, age undetermined Abnormal ECG Compared to ECG 10/14/2024 11:24:45 Myocardial infarct finding now present Sinus arrhythmia no longer present Electronically Signed On 02-05-25 11:45:54 CDT by Agustín Gonzalez
== END 2025-02-04 21:40 | disposition home or self-care (01) ==
LOC: ER 18:16
DX: R51.9 Headache, unspecified (principal); R42 Dizziness and giddiness; R20.2 Paresthesia of skin; F41.9 Anxiety disorder, unspecified; Z86.73 Personal history of transient ischemic attack (TIA), and cerebral infarction without residual deficits
CPT/HCPCS: 85025; 80048; 36415; 83735; 85610; 82947; 85730; 84484; 70496; 70498; 70450; 71045; Q9967; J8597; J2250; 93005